=== PATIENT | female | born 1945 | race Caucasian/White ===

== ENCOUNTER → 2018-05-03 11:26 | Outpatient (CLI) | payer MEDICARE, OTHER, SELFPAY ==
--- NOTE | 2018-05-03 | DI.MG.S_ITS ---
BILATERAL DIGITAL SCREENING MAMMOGRAM 3D/2D WITH CAD: 05/03/2018 CLINICAL: Routine screening. Family history of breast cancer. Comparison is made to exams dated: 03/10/2017 mammogram, 10/23/2015 mammogram, and 10/21/2014 mammogram - [facility]. The tissue of both breasts is heterogeneously dense. This may lower the sensitivity of mammography. Current study was also evaluated with a Computer Aided Detection (CAD) system. There is an asymmetry in the left breast posterior depth lower region seen on the mediolateral oblique view only. There is possible architectural distortion associated with the asymmetry. No other significant masses, calcifications, or other findings are seen in either breast. IMPRESSION: INCOMPLETE: NEEDS ADDITIONAL IMAGING EVALUATION The asymmetry in the left breast is indeterminate. Additional views with possible ultrasound are recommended. This exam was interpreted at Station ID: [id number]. NOTE: For mammograms, a report in lay terms will be sent to the patient. Approximately 15% of breast malignancies will not be visualized mammographically. In the management of a palpable breast mass, a negative mammogram must not discourage biopsy of a clinically suspicious lesion. Electronically Signed By: Rony Myers M.D. ecl/:05/05/2018 02:08:00 letter sent: Additional Imaging Needed ACR BI-RADS Category 0: Incomplete 3340F
[2018-05-03 18:06] LABS: Creatinine Urine Random 103.3 mg/dL; Protein (Total) Urine Random 9 mg/dL (0-12); Protein Creatinine Ratio Urine 0.08 GRAM/24H
== END ==
PROVIDERS: Student in an Organized Health Care Education/Training Program
DX: Z12.31 Encounter for screening mammogram for malignant neoplasm of breast (principal); Z80.3 Family history of malignant neoplasm of breast; R80.9 Proteinuria, unspecified
CPT/HCPCS: 77063; 77067; 82570; 84156

== ENCOUNTER → 2018-05-17 08:07 | Outpatient (CLI) | payer MEDICARE, OTHER, SELFPAY ==
--- NOTE | 2018-05-17 | DI.US.S_ITS ---
ULTRASOUND OF LEFT BREAST AND AXILLA: 05/17/2018 CLINICAL: Patient returns today to evaluate a density in the left breast. Comparison is made to exams dated: 05/17/2018 mammogram, 05/03/2018 mammogram, 03/10/2017 mammogram, and 10/23/2015 mammogram - [facility]. Real-time and Doppler ultrasound of the left breast and axilla were performed. Richardson scale images of the real-time examination were reviewed. There is 1.2 cm x 1.1 cm x 0.6 cm oval mass with a circumscribed margin in the left breast at 9 o'clock 7 cm from the nipple. This oval mass is hypoechoic. This correlates with mammography findings. Color flow imaging demonstrates that there is increased vascularity. Targeted ultrasound of the axilla demonstrates a prominent 3.8 cm lymph node with preserved fatty hilum and no cortical thickening. IMPRESSION: SUSPICIOUS OF MALIGNANCY 1) The 1.2 cm x 1.1 cm x 0.6 cm oval mass in the left breast is at an intermediate suspicion for malignancy. An ultrasound guided biopsy is recommended. 2) No left axillary lymphadenopathy. These results and recommendations were discussed with the patient at the time of the exam by the [facility] Radiologist Dr. Shane Rayo in person. This exam was interpreted at Station ID: [id number]. Electronically Signed By: Rony Myers M.D. ecl/:05/17/2018 10:58:18 letter sent: Biopsy Required Ultrasound BI-RADS: 4b Suspicious abnormality - intermediate suspicion of malignancy
--- NOTE | 2018-05-17 | DI.MG.S_ITS ---
UNILATERAL LEFT DIGITAL DIAGNOSTIC MAMMOGRAM 3D/2D WITH ADDITIONAL VIEWS: 05/17/2018 CLINICAL: Additional evaluation requested from prior study. Comparison is made to exams dated: 05/03/2018 mammogram, 03/10/2017 mammogram, and 10/23/2015 mammogram - [facility]. The tissue of left breast is heterogeneously dense. This may lower the sensitivity of mammography. There is 0.8 cm oval mass in the left breast lower inner aspect posterior depth. This correlates with the prior exam. There is architectural distortion associated with the mass. There are left breast vascular calcifications. There is a circular mole marker overlying the left breast. No other significant masses or calcifications are seen in the breast. IMPRESSION: INCOMPLETE: NEEDS ADDITIONAL IMAGING EVALUATION The 0.8 cm oval mass in the left breast is indeterminate. An ultrasound is recommended. This exam was interpreted at Station ID: [id number]. NOTE: For mammograms, a report in lay terms will be sent to the patient. Approximately 15% of breast malignancies will not be visualized mammographically. In the management of a palpable breast mass, a negative mammogram must not discourage biopsy of a clinically suspicious lesion. Electronically Signed By: Rony Myers M.D. ecl/:05/17/2018 09:10:36 letter sent: Additional Imaging Needed ACR BI-RADS Category 0: Incomplete [id number]
== END ==
DX: R92.8 Other abnormal and inconclusive findings on diagnostic imaging of breast (principal); N63.24 Unspecified lump in the left breast, lower inner quadrant
CPT/HCPCS: 76642; 77065; G0279

== ENCOUNTER → 2018-06-08 15:51 | Outpatient (CLI) | payer MEDICARE, OTHER, SELFPAY ==
[2018-06-08 17:18] LABS: Blood Urea Nitrogen 16 mg/dL (7-17); Calcium 10.1 mg/dL (8.4-10.2); Carbon Dioxide 27 mmol/L (22-32); Chloride 102 mmol/L (98-107); Estimated Glomerular Filt Rate > 60.0 mL/min (>60); Glucose 89 mg/dL (80-110); HEMOLYSIS < 15 (0-50); Potassium 4.5 mmol/L (3.4-5.1); Sodium 141 mmol/L (137-145)
[2018-06-08 17:48] LABS: Sodium Urine Random < 5 mmol/L (30-90)
[2018-06-08 17:49] LABS: Hematocrit 34.4 % (36-46); Mean Corpuscular HGB Conc 31.9 % (30-36); Mean Corpuscular Hemoglobin 19.6 PG (26-34); Mean Corpuscular Volume 61.3 fL (80-100); Platelet Count 230 X10^3/uL (150-400); Red Blood Cell Count 5.61 X10^6/uL (4.0-5.2); Red Cell Distribution Width 16.3 % (11.6-14.8); White Blood Cell Count 6.8 X10^3/uL (4.5-11.0)
[2018-06-08 18:17] LABS: Anisocytosis 1+; Hypochromasia 1+; Microcytosis 1+; Ovalocytes 1+; Polychromasia 2+
[2018-06-08 18:18] LABS: Basophilic Stippling 1+
[2018-06-08 18:23] LABS: Appearance Urine UA CLEAR; Bilirubin Urine UA NEGATIVE (NEGATIVE); Color Urine UA YELLOW; Glucose Urine UA NEGATIVE (Normal); Ketones Urine UA NEGATIVE (NEGATIVE); Leukocyte Esterase Urine UA 2+ (NEGATIVE); Nitrite Urine UA NEGATIVE (Negative); Occult Blood Urine UA NEGATIVE (Negative); Protein Urine UA NEGATIVE (Negative); Specific Gravity Urine UA <=1.005 (1.000-1.035); Urobilinogen Urine UA 0.2 E.U./dL (0.2)
[2018-06-08 18:33] LABS: Bacteria Urine Few (2-10); RBC Urine 0-1/HPF (0-5/HPF); Squamous Epithelial Cell Urine 1-5 /HPF; WBC Urine 1-5/HPF (0-5/HPF)
[2018-06-08 18:34] LABS: Culture Indicated Urine Specimen Cultured
[2018-06-10 14:44] LABS: Parathyroid Hormone Int 49 pg/mL (14-64)
[2018-06-12 09:08] LABS: Aldosterone/Renin Activity Rat 9.9 Ratio (0.9-28.9); Plama Renin, LC/MS/MS 5.27 ng/mL/h (0.25-5.82)
[2018-06-12 13:00] LABS: Metanephrine, Free < 25 pg/mL (< OR = 57); Normetanephrine, Free 51 pg/mL (< OR = 148)
== END ==
PROVIDERS: Visit Provider Student in an Organized Health Care Education/Training Program
DX: I10 Essential (primary) hypertension (principal); D63.1 Anemia in chronic kidney disease; N25.81 Secondary hyperparathyroidism of renal origin; N30.00 Acute cystitis without hematuria; E87.1 Hypo-osmolality and hyponatremia
CPT/HCPCS: 36415; 80048; 81001; 82088; 83835; 83970; 84244; 84300; 85027; 87086

== ENCOUNTER → 2018-06-09 08:06 | Outpatient (CLI) | payer MEDICARE, OTHER, SELFPAY ==
--- NOTE | 2018-06-09 | PATH_ITS ---
[facility] Accession Number: [id number] . 01 Material submitted: . LEFT BREAST . 01 Clinical history: . MASS 8:30 O'CLOCK 7CM FROM NIPPLE . 02 Diagnosis: Breast Mass at 8:30 o'clock, 7 cm from Nipple, Left Breast, Needle Core Biopsy: Invasive carcinoma with the following features: Histologic type: E-cadherin study pending; results will be reported as an addendum. Toyin grade: 5 of 9. Greatest linear extent: 0.7 cm. Ductal carcinoma in situ: Present, solid and cribriform patterns, nuclear grade 2 of 3, no necrosis identified. Microcalcifications: Not identified. Lymphovascular invasion: Not identified. Prognostic markers: HER2 and hormone receptor studies will be performed and the results reported as an addendum. MRV/06/12/2018 . 02 Comment: This case was reviewed by my colleague, Dr. Raul Gordon, who concurs with this interpretation. . 02 Electronically signed: . Taya Ramirez MD, Pathologist NPI- [id number] . 01 Gross description: . Received one formalin-filled container labeled with the patient's name and designated left breast mass 8:30 o'clock 7 cm from nipple. The specimen is received with a plastic filter in the container, sample loose in container, and consists of multiple light yellow portions of soft tissue which aggregate to 2.0 x 1.0 x 0.3 cm. The specimen is filtered, wrapped, and entirely submitted in one cassette. Collection date: 06/09/2018. Collection time per container: 9:20 AM. Total fixation time: 12 hours, up to 24. ([id number]) /FRR . 02 Pathologist provided ICD-10: C50.912 . 02 CPT . 843541, O95735, 408579, 607905, 473001 Performed at: 01 [facility] [address] [id number] MD Bharat Louise MD Phone: [phone] Performed at: 02 [facility] [address] [address] [place], [place] [id number] MD Enrico Gill MD Phone: [phone]
--- NOTE | 2018-06-09 | DI.MG.S_ITS ---
UNILATERAL LEFT DIGITAL DIAGNOSTIC MAMMOGRAM POST-NEEDLE BIOPSY: 06/09/2018 CLINICAL: Post clip placement. Comparison is made to exams dated: 05/17/2018 mammogram, 05/03/2018 mammogram, and 03/10/2017 mammogram - [facility]. The tissue of left breast is heterogeneously dense. This may lower the sensitivity of mammography. There is a mass in the left breast at 8 o'clock anterior depth. IMPRESSION: POST PROCEDURE MAMMOGRAM FOR MARKER PLACEMENT The mass in the left breast needs additional evaluation. This exam was interpreted at Station ID: [id number]. NOTE: For mammograms, a report in lay terms will be sent to the patient. Approximately 15% of breast malignancies will not be visualized mammographically. In the management of a palpable breast mass, a negative mammogram must not discourage biopsy of a clinically suspicious lesion. Electronically Signed By: Marcos barrett/kiah:06/09/2018 17:13:40 ACR BI-RADS Category Post-procedure mammogram for marker placement
--- NOTE | 2018-06-09 | DI.US.S_ITS ---
ULTRASOUND GUIDED BIOPSY LEFT BREAST USING VACUUM DEVICE WITH MARKING DEVICE INSERTED AND POST MAMMOGRAPHIC IMAGIN06/09/2018 CLINICAL: Left breast mass. PATIENT CONSENT: Risks (minor bleeding, infection, vasovagal reaction and repeat procedure), benefits and alternatives were explained to the patient and written informed consent was obtained. Correlation is made to exams dated: 05/17/2018 ultrasound, 05/17/2018 mammogram, and 05/03/2018 mammogram - [facility]. An ultrasound guided biopsy using real-time ultrasound was performed for the concerning 1.2 cm x 1.1 cm x 0.6 cm circumscribed oval solid mass located in the left breast at 8 o'clock anterior depth. This was described on the previous ultrasound report. The skin was prepped in the usual manner. Local anesthetic was administered to the access site. A skin misty was made in the breast. The abnormality was approached from the lateral aspect. A 13 gauge biopsy needle was placed adjacent to the abnormality under ultrasound guidance. Once the needle was documented to be in the correct location, seven specimens were obtained using the Mammotome biopsy system. The patient received additional local anesthetic during the procedure. A clip was inserted into the biopsy cavity. A skin adhesive was applied to the access site. Post procedure mammographic imaging demonstrates the location device at the targeted area. The specimens were sent to the laboratory for pathological analysis. IMPRESSION: ULTRASOUND GUIDED BIOPSY MALIGNANT Ultrasound guided biopsy of the 1.2 cm x 1.1 cm x 0.6 cm solid mass in the left breast at 8 o'clock anterior depth was successful. Pathology indicates malignant invasive ductal carcinoma (ID). Pathology results are concordant with imaging findings. This exam was interpreted at Station ID: [id number]. Marcos Thapa M.D. [facility]/:06/13/2018 16:43:09
== END ==
DX: R92.8 Other abnormal and inconclusive findings on diagnostic imaging of breast (principal)
CPT/HCPCS: 19083; 77065; 88305; 88342; 88360

== ENCOUNTER → 2018-08-07 13:39 | Outpatient (CLI) | payer MEDICARE, OTHER, SELFPAY | PROVIDERS: Visit Provider Internal Medicine Endocrinology, Diabetes & Metabolism | DX: M85.832 Other specified disorders of bone density and structure, left forearm (principal); Z78.0 Asymptomatic menopausal state; E07.9 Disorder of thyroid, unspecified; E21.3 Hyperparathyroidism, unspecified; Z85.3 Personal history of malignant neoplasm of breast; Z90.722 Acquired absence of ovaries, bilateral | CPT/HCPCS: 77080; 77081 ==

== ENCOUNTER 2019-03-03 11:15 | Emergency (ER) | payer MEDICARE, OTHER, SELFPAY ==
[2019-03-03 11:23] VITALS: BP 232/116; PULSE 120; RESP 18; TEMP 36.2; O2SAT 100; BMI 21.4
--- NOTE | 2019-03-03 11:30 | DI.RAD.S_ITS ---
PROCEDURE: XR CHEST 1V INDICATIONS: chest pain TECHNIQUE: One view of the chest was acquired. COMPARISON: [facility], , CHEST 2 VIEW, 07/05/2012, 11:46. FINDINGS: Surgical changes and devices: Left breast clips and left axillary clips are seen. Lungs and pleura: Lungs are clear. No pleural effusions or pneumothorax. Mediastinum: The cardiac contours are within normal limits. The aorta demonstrates calcification and tortuosity. Bones and chest wall: No suspicious bony lesions. Age-appropriate bony degenerative changes are seen. Mild dextroconvex scoliotic curvature is seen. Overlying soft tissues appear unremarkable. IMPRESSION: No acute cardiopulmonary process is seen. Postoperative and degenerative changes are seen. Dictated by: Vincent Aguayo M.D. on 03/03/2019 at 10:49 Approved by: Vincent Aguayo M.D. on 03/03/2019 at 10:50
--- NOTE | 2019-03-03 11:39 | ED.CHESTPAIN ---
HPI - Chest Pain General Chief Complaint: Chest Pain Stated Complaint: NAUSEA HIGH BP CHEST PAIN Time Seen by Provider: 03/03/19 11:39 Source: patient and family () Mode of arrival: ambulatory Limitations: no limitations History of Present Illness HPI narrative: 73-year-old female comes emergency department with complaint of chest pain that started this morning at about 9:00 a.m. patient states it has been present since there. It feels like a heaviness on her chest she states she does not really feel short of breath. Patient also complains of some nausea and vomiting last night. She has continued to feel nauseated this morning. She denies any real abdominal pain, no diarrhea or constipation no urinary issues. Patient has not had any swelling in her lower extremities. She states she has felt very fatigued. Patient describes her chest pain as heaviness sort of throughout her chest she can't localize it. She has not had any fevers or chills. No cold cough or congestion. Patient has a history of hypertension, breast cancer with a lumpectomy in June. She states that she did received chemo and radiation which she has completed. Patient states radiation was completed only 2 weeks ago. She has a sister who had cardiac issues. She denies other surgeries. She is accompanied by her . Related Data Home Medications Medication Instructions Recorded Confirmed [ALLER-LNEORA] #0 11/17/12 [ASTAXANTHIN] 1 tab PO Q DAY #0 11/17/12 [CALCIUM COMBINATIONS] #0 11/17/12 [KRILL OIL] 1,000 mg PO #0 11/17/12 [UBIQUINOL] #0 11/17/12 [VITAMIN D3] 4,000 mg PO Q DAY #0 11/17/12 cyclosporine [Restasis] 0.05 OP BID #0 11/17/12 mometasone [Nasonex] 50 mcg BID #0 11/17/12 spironolactone 50 mg PO TID #0 11/17/12 [t-sadejhl-a-thyron S] #0 01/20/13 CETIRIZINE HCL (ZYRTEC) 10 mg PO QDAY #30 tab 03/15/16 [probiotic] #0 03/15/16 [stool softner] #0 03/15/16 clonidine [Cyebznle-DUC-0] 0.2 mg TD QWEEK #0 patch 03/15/16 ketoconazole 1 wilner TOPICAL #15 gm 03/15/16 Previous Rx's Medication Instructions Recorded aspirin 325 mg PO QDAY #30 03/16/16 carvedilol [Coreg] 6.25 mg PO BID #60 tab 03/16/16 Allergies Allergy/AdvReac Type Severity Reaction Status Date / Time RONAN Inhibitors Allergy Severe Unverified 11/30/17 12:01 [RONAN INHIBITORS] ARB-Angiotensin Receptor Allergy Severe Unverified 11/30/17 12:01 Antagonist [ARB-ANGIOTENSIN RECEPTOR ANTAGONIST] codeine [CODEINE] Allergy Mild VOMITING Unverified 11/30/17 12:01 oxycodone [OXYCODONE] Allergy Mild VOMITING Unverified 11/30/17 12:01 Beta-Blockers Allergy Unknown nightmares Unverified 11/30/17 12:01 (Beta-Adrenergic Bloc [BETA-BLOCKERS (BETA-ADRENERGIC BLOC] Review of Systems Review of Systems ROS Unobtainable: All systems reviewed & are unremarkable except as noted in HPI and below PFSH Medical History (Updated 03/03/19 @ 11:54 by Zulma Singh DO) Breast cancer (Chronic) Surgical History (Updated 12/20/17 @ 05:36 by Torrie Samaniego) Status post hysterectomy (08/02/12) Status post parathyroidectomy Status post surgery (06/09/12) Social History Smoking Status: Never smoker Social History Smoking Status: Never smoker Exam Narrative Exam Narrative: GENERAL: Alert and oriented x three, thin female, appears anxious. HEENT: Head normocephalic, atraumatic, EOMI, pupils reactive, face symmetric, moist mucous membranes NECK: Supple, full range of motion CARDIOVASCULAR: Regular rate and rhythm without murmurs, rubs or gallops. None reproducible chest pain. Patient has a small area of ecchymosis on her right anterior chest. RESPIRATORY: Breath sounds equal bilaterally, no wheezes rales or rhonchi. No tachypnea, no accessory muscle use. ABDOMEN: Soft, nontender. Normoactive bowel sounds all 4 quadrants. No guarding or rebound, rigidity, no mass EXTREMITIES: Normal range of motion. No swelling in lower extremities. Equal in circumference bilaterally. 2+ pulses bilateral lower extremities. Neurovascularly intact NEUROLOGICAL: Cranial nerves II through XII grossly intact. Moving all extremities SKIN: Warm, dry, no petechiae, no rashes or lesions. Initial Vital Signs Initial Vital Signs: Vital Signs Temperature 97.2 F L 03/03/19 11:23 Pulse Rate 120 H 03/03/19 11:23 Respiratory Rate 18 03/03/19 11:23 Blood Pressure 232/116 H 03/03/19 11:23 Pulse Oximetry 100 03/03/19 11:23 Scores HEART Score Heart Score history: Highly Suspicious Heart Score EKG: Significant ST depression Heart Score Age: > or = 65 years old Heart Score risk factors: 1-2 risk factors Heart Score troponin: > 3 times normal limit Heart Score Total: 9 Course Orders Ordered: ED Orders 03/03/19 11:30 XR chest 1V Stat 03/03/19 11:31 EKG-12 Lead Stat 03/03/19 11:36 Complete Blood Count AUTO DIFF Stat Comprehensive Metabolic Panel Stat Lipase Stat Partial Thromboplastin Time Stat Prothrombin Time INR Stat Troponin & CK Cardiac Panel Stat Discontinued Medications Aspirin (Aspirin Chew) 324 mg PO NOW ONE Stop: 03/03/19 11:41 Last Admin: 03/03/19 11:44 Dose: 324 mg Heparin Sodium (Porcine) (Heparin) 4,000 unit IV NOW ONE Stop: 03/03/19 11:41 Last Admin: 03/03/19 11:43 Dose: 4,000 unit Sodium Chloride (Normal Saline 0.9%) 1,000 mls @ 150 mls/hr IV CONT SAHARA Last Infusion: 03/03/19 17:32 Dose: 0 mls/hr Infusion: 03/03/19 12:13 Dose: 1,000 mls/hr Admin: 03/03/19 11:55 Dose: 1,000 mls/hr Nitroglycerin (Nitrostat) 0.4 mg SL [id number] PRN PRN Reason: Chest Pain Last Admin: 03/03/19 11:52 Dose: 0.4 mg Admin: 03/03/19 11:45 Dose: 0.4 mg Ondansetron HCl (Zofran) 4 mg IV NOW ONE Stop: 03/03/19 11:54 Last Admin: 03/03/19 11:45 Dose: 4 mg Vital Signs - 8 hr 03/03/19 11:23 03/03/19 11:45 03/03/19 11:49 Temperature 97.2 F L Pulse Rate 120 H 125 H 128 H Respiratory Rate 18 22 Blood Pressure 232/116 H 201/118 H Blood Pressure [Right Arm] 215/123 H Pulse Oximetry 100 96 03/03/19 11:50 03/03/19 11:52 Temperature Pulse Rate 131 H 131 H Respiratory Rate 18 Blood Pressure 202/110 H Blood Pressure [Right Arm] 202/110 H Pulse Oximetry 96 MDM - Chest Pain Lab Data Attestation: I reviewed the patient's lab results. Result diagrams: 03/03/19 11:36 03/03/19 11:36 Lab Results 03/03/19 03/03/19 03/03/19 Range/Units 11:36 11:36 11:36 WBC 23.3 H (4.5-11.0) X10^3/uL RBC 6.93 H (4.0-5.2) X10^6/uL Hgb 13.7 (12.0-16.0) g/dL Hct 41.8 (36-46) % MCV 60.3 L (80-100) fL MCH 19.8 L (26-34) PG MCHC 32.8 (30-36) % RDW 17.1 H (11.6-14.8) % Plt Count 276 (150-400) X10^3/uL Neut % (Auto) 90.0 H (50-75) % Lymph % (Auto) 2.5 L (25-40) % [place] % (Auto) 6.6 (3-14) % Eos % (Auto) 0.0 L (2-4) % Baso % (Auto) 0.9 (0-2) % Neut # (Auto) 72310 H (5153-8221) /uL Lymph # (Auto) 600 L (2720-0560) /uL [place] # (Auto) 1500 H (0-900) /uL Eos # (Auto) 0 (0-450) /uL Baso # (Auto) 200 H (0-100) /uL RBC Morphology See below Microcytosis 2+ H Target Cells 1+ H PT 11.3 (10.1-12.7) SECONDS INR 1.0 (0.9-1.3) APTT 32 (26.4-36.2) SECONDS Sodium 140 (137-145) mmol/L Potassium 3.7 (3.4-5.1) mmol/L Chloride 98 (98-107) mmol/L Carbon Dioxide 21 L (22-32) mmol/L BUN 20 H (7-17) mg/dL Creatinine 0.80 (0.52-1.04) mg/dL Estimated GFR > 60.0 (>60) mL/min BUN/Creatinine Ratio 25.0 H (6-22) Glucose 310 H (80-110) mg/dL Calcium 10.7 H (8.4-10.2) mg/dL Total Bilirubin 1.3 (0.2-1.3) mg/dL AST 90 H (14-36) IU/L ALT 65 H (9-52) IU/L Alkaline Phosphatase 89 (38-126) U/L Total Creatine Kinase 126 (30-135) U/L CK-MB (CK-2) 6.32 H (<2.37) ng/mL CK-MB (CK-2) Rel Index 5.0 (1.5-5.0) % Troponin I 1.960 H* (0.01-0.034) ng/mL Total Protein 8.3 H (6.3-8.2) g/dL Albumin 5.0 (3.5-5.0) g/dL Globulin 3.3 (1.7-4.1) g/dL Albumin/Globulin Ratio 1.5 (1.0-2.8) Lipase 228 (23-300) U/L Imaging Data Chest x-ray: Attestation: I personally reviewed and interpreted this imaging study as follows: My impression: No acute process noted. Radiologist's impression: [address] [address] XRay Report Signed Patient: Teresa Pederson [facility]#: [id number] : 3Acct:[id number] Age/Sex: 73 / FDate of Service: 03/03/19 Loc: ED Accession Number: [id number] Procedure: XR chest 1V Ordering Provider: Zulma Singh D.O. PROCEDURE: XR CHEST 1V INDICATIONS: chest pain TECHNIQUE: One view of the chest was acquired. COMPARISON: [facility], CHEST 2 VIEW, 07/05/2012, 11:46. FINDINGS: Surgical changes and devices: Left breast clips and left axillary clips are seen. Lungs and pleura: Lungs are clear. No pleural effusions or pneumothorax. Mediastinum: The cardiac contours are within normal limits. The aorta demonstrates calcification and tortuosity. Bones and chest wall: No suspicious bony lesions. Age-appropriate bony degenerative changes are seen. Mild dextroconvex scoliotic curvature is seen. Overlying soft tissues appear unremarkable. IMPRESSION: No acute cardiopulmonary process is seen. Postoperative and degenerative changes are seen. Dictated by: Vincent Aguayo M.D. on 03/03/2019 at 10:49 Approved by: Vincent Aguayo M.D. on 03/03/2019 at 10:50 ECG Data Attestation: I personally reviewed and interpreted this ECG as follows: Prior ECG tracings: available for review Interpretation: Patient has sinus tachycardia with ST elevation in V2 through V4. Also appears to have elevation in 1 and aVL. Patient has depression in 2 3 AVF. Patient has a prior EKG available which shows a sinus rhythm with no ST elevation or depression appreciated. She does have Q-waves in 2 3 and AVF on that EKG from 03/15/2016. [facility] Narrative Medical decision making narrative: Patient's EKG findings are concerning for ST elevated IN, she has hypertension tachycardic. Patient is given fluids, aspirin 324 mg. She was nauseated and had 1 episode of emesis prior to aspirin and was given Zofran. Patient was given heparin 4000 unit bolus. Fluids. She was also given nitro sublingual. Patient does have potential for other causes such as PE, hypertensive emergency or other potential causes but at this time my suspicion for ST elevated IN is higher. I spoke with Dr. Villa at [facility] who accepts for transfer. EKGs have been faxed, blood work is pending and will be forwarded when available. Chest x-ray does not show any acute changes. Discharge Plan Departure Patient Disposition: [facility] Clinical Impression: ST elevation (STEMI) myocardial infarction Discharge Date/Time: 03/03/19 12:00 Interventions: ED Discharge Assessment Last Done: 03/03/19 12:02 Prescriptions: No Action mometasone [Nasonex] 50 MCG/PUFF spray,non-aerosol 50 mcg BID Qty: 0 RF: 0 [ALLER-LENORA] Qty: 0 RF: 0 spironolactone 50 MG tablet 50 mg PO TID Qty: 0 RF: 0 cyclosporine [Restasis] 1 EACH dropperette 0.05 OP BID Qty: 0 RF: 0 [ASTAXANTHIN] 1 tab PO Q DAY Qty: 0 RF: 0 [CALCIUM COMBINATIONS] Qty: 0 RF: 0 [KRILL OIL] 1,000 mg PO Qty: 0 RF: 0 [UBIQUINOL] Qty: 0 RF: 0 [VITAMIN D3] 4,000 mg PO Q DAY Qty: 0 RF: 0 [r-vbsiblm-k-thyron S] Qty: 0 RF: 0 clonidine [Ejhyjcdq-FYG-7] 0.2 MG/24 HR patch weekly 0.2 mg TD QWEEK Qty: 0 RF: 0 ketoconazole 2 % cream 1 wilner Topical Qty: 15 RF: 0 [probiotic] Qty: 0 RF: 0 CETIRIZINE HCL (ZYRTEC) 10 mg PO QDAY Qty: 30 RF: 0 [stool softner] Qty: 0 RF: 0 aspirin 325 MG tablet,delayed release (DR/EC) 325 mg PO QDAY Qty: 30 RF: 0 carvedilol [Coreg] 6.25 MG tablet 6.25 mg PO BID Qty: 60 RF: 0 Referrals: Estela Fletcher PA-C [Primary Care Provider] -
[2019-03-03] MEDS: HEPARIN 5,000 UNIT/ML VIAL 4000 UNIT IV (11:43)
[2019-03-03] MEDS: ASPIRIN 81 MG TAB 324 MG PO (11:44)
[2019-03-03 11:45] VITALS: BP 201/118; PULSE 125
[2019-03-03] MEDS: NITROGLYCERIN 0.4 MG SL TAB SL ×2 (11:45→11:52)
[2019-03-03] MEDS: ONDANSETRON 4 MG/2 ML INJ IV (11:45)
[2019-03-03 11:49] VITALS: BP 215/123; PULSE 128; RESP 22; O2SAT 96
[2019-03-03 11:50] VITALS: BP 202/110; PULSE 131; RESP 18; O2SAT 96
[2019-03-03 11:52] VITALS: BP 202/110; PULSE 131
[2019-03-03] MEDS: SODIUM CHLORIDE 0.9% 1,000 ML 1000 ML IV (11:55)
--- NOTE | 2019-03-03 11:55 | ED_ITS ---
HPI - Chest Pain General Chief Complaint: Chest Pain Stated Complaint: NAUSEA HIGH BP CHEST PAIN Time Seen by Provider: 03/03/19 11:39 Source: patient and family () Mode of arrival: ambulatory Limitations: no limitations History of Present Illness HPI narrative: 73-year-old female comes emergency department with complaint of chest pain that started this morning at about 9:00 a.m. patient states it has been present since there. It feels like a heaviness on her chest she states she does not really feel short of breath. Patient also complains of some nausea and vomiting last night. She has continued to feel nauseated this morning. She denies any real abdominal pain, no diarrhea or constipation no urinary issues. Patient has not had any swelling in her lower extremities. She states she has felt very fatigued. Patient describes her chest pain as heaviness sort of throughout her chest she can't localize it. She has not had any fevers or chills. No cold cough or congestion. Patient has a history of hypertension, breast cancer with a lumpectomy in June. She states that she did received chemo and radiation which she has completed. Patient states radiation was completed only 2 weeks ago. She has a sister who had cardiac issues. She denies other surgeries. She is accompanied by her . Related Data Home Medications Medication Instructions Recorded Confirmed [ALLER-LENORA] #0 11/17/12 [ASTAXANTHIN] 1 tab PO Q DAY #0 11/17/12 [CALCIUM COMBINATIONS] #0 11/17/12 [KRILL OIL] 1,000 mg PO #0 11/17/12 [UBIQUINOL] #0 11/17/12 [VITAMIN D3] 4,000 mg PO Q DAY #0 11/17/12 cyclosporine [Restasis] 0.05 OP BID #0 11/17/12 mometasone [Nasonex] 50 mcg BID #0 11/17/12 spironolactone 50 mg PO TID #0 11/17/12 [s-bkgcbdo-q-thyron S] #0 01/20/13 CETIRIZINE HCL (ZYRTEC) 10 mg PO QDAY #30 tab 03/15/16 [probiotic] #0 03/15/16 [stool softner] #0 03/15/16 clonidine [Xifuewoi-NID-9] 0.2 mg TD QWEEK #0 patch 03/15/16 ketoconazole 1 wilner TOPICAL #15 gm 03/15/16 Previous Rx's Medication Instructions Recorded aspirin 325 mg PO QDAY #30 03/16/16 carvedilol [Coreg] 6.25 mg PO BID #60 tab 03/16/16 Allergies Allergy/AdvReac Type Severity Reaction Status Date / Time RONAN Inhibitors Allergy Severe Unverified 11/30/17 12:01 [RONAN INHIBITORS] ARB-Angiotensin Receptor Allergy Severe Unverified 11/30/17 12:01 Antagonist [ARB-ANGIOTENSIN RECEPTOR ANTAGONIST] codeine [CODEINE] Allergy Mild VOMITING Unverified 11/30/17 12:01 oxycodone [OXYCODONE] Allergy Mild VOMITING Unverified 11/30/17 12:01 Beta-Blockers Allergy Unknown nightmares Unverified 11/30/17 12:01 (Beta-Adrenergic Bloc [BETA-BLOCKERS (BETA-ADRENERGIC BLOC] Review of Systems Review of Systems ROS Unobtainable: All systems reviewed & are unremarkable except as noted in HPI and below PFSH Medical History (Updated 03/03/19 @ 11:54 by Zulma Singh DO) Breast cancer (Chronic) Surgical History (Updated 12/20/17 @ 05:36 by Torrie Samaniego) Status post hysterectomy (08/02/12) Status post parathyroidectomy Status post surgery (06/09/12) Social History Smoking Status: Never smoker Social History Smoking Status: Never smoker Exam Narrative Exam Narrative: GENERAL: Alert and oriented x three, thin female, appears anxious. HEENT: Head normocephalic, atraumatic, EOMI, pupils reactive, face symmetric, m oist mucous membranes NECK: Supple, full range of motion CARDIOVASCULAR: Regular rate and rhythm without murmurs, rubs or gallops. None reproducible chest pain. Patient has a small area of ecchymosis on her right anterior chest. RESPIRATORY: Breath sounds equal bilaterally, no wheezes rales or rhonchi. No tachypnea, no accessory muscle use. ABDOMEN: Soft, nontender. Normoactive bowel sounds all 4 quadrants. No guarding or rebound, rigidity, no mass EXTREMITIES: Normal range of motion. No swelling in lower extremities. Equal in circumference bilaterally. 2+ pulses bilateral lower extremities. Neurovascularly intact NEUROLOGICAL: Cranial nerves II through XII grossly intact. Moving all extremities SKIN: Warm, dry, no petechiae, no rashes or lesions. Initial Vital Signs Initial Vital Signs: Vital Signs Temperature 97.2 F L 03/03/19 11:23 Pulse Rate 120 H 03/03/19 11:23 Respiratory Rate 18 03/03/19 11:23 Blood Pressure 232/116 H 03/03/19 11:23 Pulse Oximetry 100 03/03/19 11:23 Scores HEART Score Heart Score history: Highly Suspicious Heart Score EKG: Significant ST depression Heart Score Age: > or = 65 years old Heart Score risk factors: 1-2 risk factors Heart Score troponin: > 3 times normal limit Heart Score Total: 9 Course Orders Ordered: ED Orders 03/03/19 11:30 XR chest 1V Stat 03/03/19 11:31 EKG-12 Lead Stat 03/03/19 11:36 Complete Blood Count AUTO DIFF Stat Comprehensive Metabolic Panel Stat Lipase Stat Partial Thromboplastin Time Stat Prothrombin Time INR Stat Troponin & CK Cardiac Panel Stat Discontinued Medications Aspirin (Aspirin Chew) 324 mg PO NOW ONE Stop: 03/03/19 11:41 Last Admin: 03/03/19 11:44 Dose: 324 mg Heparin Sodium (Porcine) (Heparin) 4,000 unit IV NOW ONE Stop: 03/03/19 11:41 Last Admin: 03/03/19 11:43 Dose: 4,000 unit Sodium Chloride (Normal Saline 0.9%) 1,000 mls @ 150 mls/hr IV CONT SAHARA Last Infusion: 03/03/19 17:32 Dose: 0 mls/hr Infusion: 03/03/19 12:13 Dose: 1,000 mls/hr Admin: 03/03/19 11:55 Dose: 1,000 mls/hr Nitroglycerin (Nitrostat) 0.4 mg SL [id number] PRN PRN Reason: Chest Pain Last Admin: 03/03/19 11:52 Dose: 0.4 mg Admin: 03/03/19 11:45 Dose: 0.4 mg Ondansetron HCl (Zofran) 4 mg IV NOW ONE Stop: 03/03/19 11:54 Last Admin: 03/03/19 11:45 Dose: 4 mg Vital Signs - 8 hr 03/03/19 11:23 03/03/19 11:45 03/03/19 11:49 Temperature 97.2 F L Pulse Rate 120 H 125 H 128 H Respiratory Rate 18 22 Blood Pressure 232/116 H 201/118 H Blood Pressure [Right Arm] 215/123 H Pulse Oximetry 100 96 03/03/19 11:50 03/03/19 11:52 Temperature Pulse Rate 131 H 131 H Respiratory Rate 18 Blood Pressure 202/110 H Blood Pressure [Right Arm] 202/110 H Pulse Oximetry 96 MDM - Chest Pain Lab Data Attestation: I reviewed the patient's lab results. Result diagrams: 03/03/19 11:36 03/03/19 11:36 Lab Results 03/03/19 03/03/19 03/03/19 Range/Units 11:36 11:36 11:36 WBC 23.3 H (4.5-11.0) X10^3/uL RBC 6.93 H (4.0-5.2) X10^6/uL Hgb 13.7 (12.0-16.0) g/dL Hct 41.8 (36-46) % MCV 60.3 L (80-100) fL MCH 19.8 L (26-34) PG MCHC 32.8 (30-36) % RDW 17.1 H (11.6-14.8) % Plt Count 276 (150-400) X10^3/uL Neut % (Auto) 90.0 H (50-75) % Lymph % (Auto) 2.5 L (25-40) % Christian % (Auto) 6.6 (3-14) % Eos % (Auto) 0.0 L (2-4) % Baso % (Auto) 0.9 (0-2) % Neut # (Auto) 41877 H (8351-0664) /uL Lymph # (Auto) 600 L (4400-1135) /uL Christian # (Auto) 1500 H (0-900) /uL Eos # (Auto) 0 (0-450) /uL Baso # (Auto) 200 H (0-100) /uL RBC Morphology See below Microcytosis 2+ H Target Cells 1+ H PT 11.3 (10.1-12.7) SECONDS INR 1.0 (0.9-1.3) APTT 32 (26.4-36.2) SECONDS Sodium 140 (137-145) mmol/L Potassium 3.7 (3.4-5.1) mmol/L Chloride 98 (98-107) mmol/L Carbon Dioxide 21 L (22-32) mmol/L BUN 20 H (7-17) mg/dL Creatinine 0.80 (0.52-1.04) mg/dL Estimated GFR > 60.0 (>60) mL/min BUN/Creatinine Ratio 25.0 H (6-22) Glucose 310 H (80-110) mg/dL Calcium 10.7 H (8.4-10.2) mg/dL Total Bilirubin 1.3 (0.2-1.3) mg/dL AST 90 H (14-36) IU/L ALT 65 H (9-52) IU/L Alkaline Phosphatase 89 (38-126) U/L Total Creatine Kinase 126 (30-135) U/L CK-MB (CK-2) 6.32 H (<2.37) ng/mL CK-MB (CK-2) Rel Index 5.0 (1.5-5.0) % Troponin I 1.960 H* (0.01-0.034) ng/mL Total Protein 8.3 H (6.3-8.2) g/dL Albumin 5.0 (3.5-5.0) g/dL Globulin 3.3 (1.7-4.1) g/dL Albumin/Globulin Ratio 1.5 (1.0-2.8) Lipase 228 (23-300) U/L Imaging Data Chest x-ray: Attestation: I personally reviewed and interpreted this imaging study as follows: My impression: No acute process noted. Radiologist's impression: [address] [address] XRay Report Signed Patient: Teresa Pederson [facility]#: [id number] : 3Acct:[id number] Age/Sex: 73 / FDate of Service: 03/03/19 Loc: ED Accession Number: [id number] Procedure: XR chest 1V Ordering Provider: Zulma Singh D.O. PROCEDURE: XR CHEST 1V INDICATIONS: chest pain TECHNIQUE: One view of the chest was acquired. COMPARISON: [facility], , CHEST 2 VIEW, 07/05/2012, 11:46. FINDINGS: Surgical changes and devices: Left breast clips and left axillary clips are seen. Lungs and pleura: Lungs are clear. No pleural effusions or pneumothorax. Mediastinum: The cardiac contours are within normal limits. The aorta d emonstrates calcification and tortuosity. Bones and chest wall: No suspicious bony lesions. Age-appropriate bony degenerative changes are seen. Mild dextroconvex scoliotic curvature is seen. Overlying soft tissues appear unremarkable. IMPRESSION: No acute cardiopulmonary process is seen. Postoperative and degenerative changes are seen. Dictated by: Vincent Aguayo M.D. on 03/03/2019 at 10:49 Approved by: Vincent Aguayo M.D. on 03/03/2019 at 10:50 ECG Data Attestation: I personally reviewed and interpreted this ECG as follows: Prior ECG tracings: available for review Interpretation: Patient has sinus tachycardia with ST elevation in V2 through V4. Also appears to have elevation in 1 and aVL. Patient has depression in 2 3 AVF. Patient has a prior EKG available which shows a sinus rhythm with no ST elevation or depression appreciated. She does have Q-waves in 2 3 and AVF on that EKG from 03/15/2016. MDM Narrative Medical decision making narrative: Patient's EKG findings are concerning for ST elevated [place], she has hypertension tachycardic. Patient is given fluids, aspirin 324 mg. She was nauseated and had 1 episode of emesis prior to aspirin and was given Zofran. Patient was given heparin 4000 unit bolus. Fluids. She was also given nitro sublingual. Patient does have potential for other causes such as PE, hypertensive emergency or other potential causes but at this time my suspicion for ST elevated [place] is higher. I spoke with Dr. Villa at [facility] who accepts for transfer. EKGs have been faxed, blood work is pending and will be forwarded when available. Chest x-ray does not show any acute changes. Discharge Plan Departure Patient Disposition: [facility] Clinical Impression: ST elevation (STEMI) myocardial infarction Discharge Date/Time: 03/03/19 12:00 Interventions: ED Discharge Assessment Last Done: 03/03/19 12:02 Prescriptions: No Action mometasone [Nasonex] 50 MCG/PUFF spray,non-aerosol 50 mcg BID Qty: 0 RF: 0 [ALLER-LENORA] Qty: 0 RF: 0 spironolactone 50 MG tablet 50 mg PO TID Qty: 0 RF: 0 cyclosporine [Restasis] 1 EACH dropperette 0.05 OP BID Qty: 0 RF: 0 [ASTAXANTHIN] 1 tab PO Q DAY Qty: 0 RF: 0 [CALCIUM COMBINATIONS] Qty: 0 RF: 0 [KRILL OIL] 1,000 mg PO Qty: 0 RF: 0 [UBIQUINOL] Qty: 0 RF: 0 [VITAMIN D3] 4,000 mg PO Q DAY Qty: 0 RF: 0 [g-pcvtvhk-t-thyron S] Qty: 0 RF: 0 clonidine [Satjphdj-URU-7] 0.2 MG/24 HR patch weekly 0.2 mg TD QWEEK Qty: 0 RF: 0 ketoconazole 2 % cream 1 wilner Topical Qty: 15 RF: 0 [probiotic] Qty: 0 RF: 0 CETIRIZINE HCL (ZYRTEC) 10 mg PO QDAY Qty: 30 RF: 0 [stool softner] Qty: 0 RF: 0 aspirin 325 MG tablet,delayed release (DR/EC) 325 mg PO QDAY Qty: 30 RF: 0 carvedilol [Coreg] 6.25 MG tablet 6.25 mg PO BID Qty: 60 RF: 0 Referrals: Estela Fletcher PA-C [Primary Care Provider] -
[2019-03-03 12:00] LABS: Add Manual Diff / Slide Review NO; Basophils Absolute Auto 200 /uL (0-100); Basophils Percent Auto 0.9 % (0-2); Eosinophils Absolute Auto 0 /uL (0-450); Hematocrit 41.8 % (36-46); Hemoglobin 13.7 g/dL (12.0-16.0); Lymphocytes Absolute Auto 600 /uL (1100-4500); Lymphocytes Percent Auto 2.5 % (25-40); Mean Corpuscular HGB Conc 32.8 % (30-36); Mean Corpuscular Hemoglobin 19.8 PG (26-34); Mean Corpuscular Volume 60.3 fL (80-100); Monocytes Absolute Auto 1500 /uL (0-900); Monocytes Percent Auto 6.6 % (3-14); Neutrophils Absolute Auto 21000 /uL (1500-7000); Platelet Count 276 X10^3/uL (150-400); Red Blood Cell Count 6.93 X10^6/uL (4.0-5.2); Red Cell Distribution Width 17.1 % (11.6-14.8); White Blood Cell Count 23.3 X10^3/uL (4.5-11.0)
[2019-03-03 12:05] LABS: PTT Partial Thromboplastin Tim 32 SECONDS (26.4-36.2); Prothrombin Time 11.3 SECONDS (10.1-12.7)
[2019-03-03 12:06] LABS: Alanine Aminotransferase 65 IU/L (9-52); Albumin Globulin Ratio 1.5 (1.0-2.8); Alkaline Phosphatase 89 U/L (38-126); Aspartate Aminotransferase 90 IU/L (14-36); Bilirubin Total 1.3 mg/dL (0.2-1.3); Blood Urea Nitrogen 20 mg/dL (7-17); Calcium 10.7 mg/dL (8.4-10.2); Carbon Dioxide 21 mmol/L (22-32); Chloride 98 mmol/L (98-107); Creatine Kinase 126 U/L (30-135); Estimated Glomerular Filt Rate > 60.0 mL/min (>60); Globulin 3.3 g/dL (1.7-4.1); Glucose 310 mg/dL (80-110); HEMOLYSIS < 15 (0-50); Lipase 228 U/L (23-300); Potassium 3.7 mmol/L (3.4-5.1); Sodium 140 mmol/L (137-145); Total Protein 8.3 g/dL (6.3-8.2)
--- NOTE | 2019-03-03 12:07 | PC.NURSE ---
arrived, skin pale, dry,warm, +nausea and +emesis. reports, epigastric chest preassure 5, also with heaviness, non radiating pain. no other associated sxs hx of breast cancer, lymph nodectomy, no bp,iv left arm. medicated for comfort
[2019-03-03 12:22] LABS: Creatine Kinase MB 6.32 ng/mL (<2.37)
[2019-03-03 12:36] LABS: Microcytosis 2+; Target Cells 1+
== END 2019-03-03 12:00 | disposition short-term general hospital (02) ==
PROVIDERS: Emergency Provider Emergency Medicine
DX: I21.3 ST elevation (STEMI) myocardial infarction of unspecified site (principal)
CPT/HCPCS: 36591; 71045; 80053; 82550; 82553; 83690; 84484; 85025; 85610; 85730; 93005; 96374; 96375; 99283; 99285; 99291; J1644; J2405

== ENCOUNTER → 2019-04-12 13:05 | Outpatient (CLI) | payer MEDICARE, OTHER, SELFPAY | PROVIDERS: Referring Provider Internal Medicine Endocrinology, Diabetes & Metabolism; Visit Provider Internal Medicine Hematology & Oncology | DX: Z79.811 Long term (current) use of aromatase inhibitors (principal) | CPT/HCPCS: 77080 ==

== ENCOUNTER → 2019-04-18 11:54 | Outpatient (CLI) | payer MEDICARE, OTHER, SELFPAY ==
[2019-04-18 13:35] LABS: BUN Creatinine Ratio 26.7 (6-22); Blood Urea Nitrogen 24 mg/dL (7-17); Calcium 10.4 mg/dL (8.4-10.2); Carbon Dioxide 30 mmol/L (22-32); Chloride 90 mmol/L (98-107); Estimated Glomerular Filt Rate > 60.0 mL/min (>60); Glucose 102 mg/dL (80-110); HEMOLYSIS < 15 (0-50); Potassium 3.7 mmol/L (3.4-5.1); Sodium 134 mmol/L (137-145)
== END ==
PROVIDERS: Visit Provider Internal Medicine
DX: I16.0 Hypertensive urgency (principal)
CPT/HCPCS: 36415; 80048

== ENCOUNTER → 2019-06-30 13:24 | Outpatient (CLI) | payer MEDICARE, OTHER, SELFPAY ==
--- NOTE | 2019-06-30 13:27 | DI.RAD.S_ITS ---
PROCEDURE: XR LUMBAR SPINE 2-3V INDICATIONS: 74 y/o F midline lumbar spine pain s/p direct trauma, R/O Fx TECHNIQUE: 3 views of the lumbar spine were acquired. COMPARISON: [facility], CR, XR CHEST 1V, 03/03/2019, 11:44. FINDINGS: Bones: 5 lau-tls-wispkbl vertebrae are present. No vertebral body compression fractures. No suspicious bony lesions. There is moderate levoconvex scoliosis. There is 50% loss of height anteriorly at the L1 level. No definite, acute features are detected. No plain film findings of posterior displacement fracture fragments can be seen. Mild disc space narrowing is seen at the L5-S1 level. The disc heights otherwise appear well-preserved. Lower lumbar spine facet arthropathy is seen. Soft tissues: There is a moderate amount of stool seen within colon. No suspicious soft tissue calcifications. Atherosclerotic calcification is noted. IMPRESSION: There is a 50% anterior wedge deformity at L1, without binu, acute features by plain film. Please correlate with focal tenderness. In this patient with this given history, please consider a dedicated lumbar CT for further evaluation. Focal L5-S1 degenerative change. Moderate levoconvex scoliosis. There is a moderate amount of stool seen within the colon. Please correlate with an underlying history of constipation. Dictated by: Vincent Aguayo M.D. on 06/30/2019 at 13:00 Approved by: Vincent Aguayo M.D. on 06/30/2019 at 13:03
== END ==
PROVIDERS: Visit Provider Physician Assistant
DX: M54.5 Low back pain (principal); M47.817 Spondylosis without myelopathy or radiculopathy, lumbosacral region; M41.86 Other forms of scoliosis, lumbar region; R30.0 Dysuria
CPT/HCPCS: 72100; 87077; 87086; 87186

== ENCOUNTER → 2019-07-13 12:32 | Outpatient (CLI) | payer MEDICARE, OTHER, SELFPAY ==
--- NOTE | 2019-07-13 | DI.MG.S_ITS ---
BILATERAL DIGITAL SCREENING MAMMOGRAM 3D/2D WITH CAD POST LUMPECTOMY: 07/13/2019 CLINICAL: Routine screening. Personal history of left breast cancer. Family history of breast cancer. Comparison is made to exams dated: 05/03/2018 mammogram, 10/23/2015 mammogram, and 03/10/2017 mammogram - [facility]. The tissue of both breasts is heterogeneously dense. This may lower the sensitivity of mammography. Current study was also evaluated with a Computer Aided Detection (CAD) system. There are benign post operative findings in the left breast. No significant masses, calcifications, or other findings are seen in either breast. There has been no significant interval change. IMPRESSION: There is no mammographic evidence of malignancy. A 1 year screening mammogram is recommended. This exam was interpreted at Station ID: [id number]. NOTE: For mammograms, a report in lay terms will be sent to the patient. Approximately 15% of breast malignancies will not be visualized mammographically. In the management of a palpable breast mass, a negative mammogram must not discourage biopsy of a clinically suspicious lesion. Electronically Signed By: Mei bay/kiah:07/13/2019 15:46:50 copy to: NASRIN GRACE, ph: [phone], fax: [phone] copy to: AMY MCKEON letter sent: Normal Exam ACR BI-RADS Category 2: Benign Finding(s) 3342E
--- NOTE | 2019-07-13 | DI.CT.S_ITS ---
PROCEDURE: CT LUMBAR SPINE WO CON INDICATIONS: Wedge compression fracture SCREENING TECHNIQUE: Noncontrast 3 mm thick sections acquired from the T12 level to the sacrum. Sagittal and coronal reformats were constructed. For radiation dose reduction, the following was used: automated exposure control. COMPARISON: [facility], CR, XR LUMBAR SPINE 2-3V, 06/30/2019, 13:25. FINDINGS: Image quality: Excellent. Bones: No suspicious lytic or blastic bony lesions. No pars defects. There is a subacute appearing fracture at the L1 level, with 50-60% loss of height anteriorly. There is mild posterior displacement of fracture fragments of 4-5 mm. No additional fractures are seen. Mild levoconvex scoliotic curvature is seen. No focal AP alignment abnormality is seen. T12-L1: The disc height is relatively well-preserved. Calcification can be seen within the disc level itself. Mild to moderate disc bulge is seen. Dfrn-ik-kchquxlk bilateral neural foraminal narrowing is seen. Posterior to the L1 vertebral body, there is mild to moderate central canal narrowing, caused by posterior displacement of fracture fragments. L1-L2: No significant abnormality is seen. L2-L3: Level within normal limits. L3-L4: Mild loss of disc height is seen on the right side. Mild to moderate disc bulge is seen. There is moderate right-sided and mild to moderate left-sided neural foraminal narrowing seen. Mild to moderate central canal narrowing is seen. L4-L5: The disc height is well-preserved. Moderate disc bulge is seen, which is eccentric to the right. Calcification can be seen on the posterior aspect of the disc, as on series 6 image 39. There is moderate right-sided and mild to moderate left-sided neural foraminal narrowing seen. There is moderate right-sided and no significant left-sided neural foraminal narrowing seen. Fqic-pp-avjuebel central canal narrowing is seen at this level. L5-S1: Moderate loss of disc height is seen. Moderate disc bulge is seen, with a central disc protrusion seen. Mild facet hypertrophy is seen, left worse than right. No significant neural foraminal narrowing is seen. Fnao-ta-dtwsycqg central canal narrowing is seen. Soft tissues: No retroperitoneal masses or hematomas. Visualized aorta is normal in caliber. Atherosclerotic calcification is noted. Nonobstructing right-sided kidney stones are seen, with the largest seen on series 3 image 37 measuring 3 mm. IMPRESSION: Subacute L1 compression deformity, with 50% to 60% loss of height anteriorly. The degree of loss of vertebral body height is not significantly changed compared to the prior examination. Posterior displacement of fracture fragments can be seen, with measuring 4-5 mm, with mild to moderate central canal narrowing posterior to L1. Incidental note is made of: Atherosclerotic calcification Nonobstructing right-sided kidney stones Dictated by: Vincent Aguayo M.D. on 07/13/2019 at 14:48 Approved by: Vincent Aguayo M.D. on 07/13/2019 at 14:57
== END ==
DX: Z12.31 Encounter for screening mammogram for malignant neoplasm of breast (principal); Z85.3 Personal history of malignant neoplasm of breast; Z80.3 Family history of malignant neoplasm of breast; M48.56XA Collapsed vertebra, not elsewhere classified, lumbar region, initial encounter for fracture; N20.0 Calculus of kidney; I70.0 Atherosclerosis of aorta
CPT/HCPCS: 72131; 77063; 77067

== ENCOUNTER → 2019-08-03 12:14 | Outpatient (CLI) | payer MEDICARE, OTHER, SELFPAY ==
[2019-08-03 12:41] LABS: Add Manual Diff / Slide Review NO; Basophils Absolute Auto 0 /uL (0-100); Basophils Percent Auto 0.6 % (0-2); Eosinophils Absolute Auto 0 /uL (0-450); Eosinophils Percent Auto 0.9 % (2-4); Hematocrit 33.7 % (36-46); Hemoglobin 11.1 g/dL (12.0-16.0); Lymphocytes Absolute Auto 600 /uL (1100-4500); Lymphocytes Percent Auto 14.6 % (25-40); Mean Corpuscular HGB Conc 32.8 % (30-36); Mean Corpuscular Hemoglobin 20.7 PG (26-34); Monocytes Absolute Auto 400 /uL (0-900); Monocytes Percent Auto 8.9 % (3-14); Neutrophils Absolute Auto 3300 /uL (1500-7000); Platelet Count 227 X10^3/uL (150-400); Red Blood Cell Count 5.36 X10^6/uL (4.0-5.2); Red Cell Distribution Width 18.1 % (11.6-14.8); White Blood Cell Count 4.4 X10^3/uL (4.5-11.0)
[2019-08-03 13:08] LABS: Hypochromasia 2+; Microcytosis 3+; Ovalocytes 1+
== END ==
PROVIDERS: Visit Provider Internal Medicine Hematology & Oncology
DX: D64.81 Anemia due to antineoplastic chemotherapy (principal); T45.1X5A Adverse effect of antineoplastic and immunosuppressive drugs, initial encounter
CPT/HCPCS: 36415; 85025

== ENCOUNTER → 2020-01-18 09:09 | Outpatient (CLI) | payer MEDICARE, OTHER, SELFPAY ==
--- NOTE | 2020-01-18 | DI.US.S_ITS ---
LIMITED ULTRASOUND OF LEFT BREAST: 01/18/2020 CLINICAL: Left breast cancer with new lump. Comparison is made to exams dated: 01/18/2020 mammogram, 07/13/2019 mammogram, 06/09/2018 ultrasound biopsy, and 05/17/2018 [facility]. Color flow and real-time ultrasound of the left breast 9 o'clock, and retroareolar regions were performed. Richardson scale images of the real-time examination were reviewed. There is a 2.3 cm x 1.9 cm x 1.4 cm oval fluid collection in the left breast at 9 o'clock anterior depth 5 cm from the nipple. This oval fluid collection is hypoechoic with a well-defined boundary and internal echoes. This correlates as palpated. Color flow imaging demonstrates that there is no vascularity present. Adjacent linear scar is seen. IMPRESSION: PROBABLY BENIGN The 2.3 cm oval fluid collection in the left breast most likely is a hematoma or a seroma and is probably benign. The patient reports that the abnormality is slowly enlarging. A follow-up mammogram and an ultrasound in 6 months is recommended to demonstrate stability. Exam results were conveyed to the patient. This exam was interpreted at Station ID: [id number]. Electronically Signed By: González Neff M.D. slc/:01/18/2020 11:28:05 letter sent: Followup Recommended Ultrasound BI-RADS: 3 Probably benign
--- NOTE | 2020-01-18 | DI.MG.S_ITS ---
BILATERAL DIGITAL DIAGNOSTIC MAMMOGRAM 3D/2D POST LUMPECTOMY: 01/18/2020 CLINICAL: Left breast cancer with new lump. Comparison is made to exams dated: 07/13/2019 mammogram, 05/03/2018 mammogram, 03/10/2017 mammogram, 06/09/2018 ultrasound biopsy, 05/17/2018 ultrasound, and 05/17/2018 mammogram - [facility]. The tissue of both breasts is heterogeneously dense. This may lower the sensitivity of mammography. Post-operative findings in the lower inner left breast and axilla are stable in appearance. Benign vascular calcifications. No mass or significant calcifications in the region of the left breast palpable abnormality in the anterior lower inner left breast. No significant masses, calcifications, or other findings are seen in either breast. IMPRESSION: INCOMPLETE: NEEDS ADDITIONAL IMAGING EVALUATION No significant masses, calcifications, or other findings are seen in either breast. Stable left breast post-operative findings. Targeted ultrasound of the left breast palpable abnormality is recommended and will immediately follow. This exam was interpreted at Station ID: [id number]. NOTE: For mammograms, a report in lay terms will be sent to the patient. Approximately 15% of breast malignancies will not be visualized mammographically. In the management of a palpable breast mass, a negative mammogram must not discourage biopsy of a clinically suspicious lesion. Electronically Signed By: González Neff M.D. slc/:01/18/2020 11:10:36 ACR BI-RADS Category 0: Incomplete [id number]
== END ==
PROVIDERS: PCP Nurse Practitioner; Referring Provider Internal Medicine; Visit Provider Internal Medicine
DX: R92.8 Other abnormal and inconclusive findings on diagnostic imaging of breast (principal); N63.25 Unspecified lump in the left breast, overlapping quadrants; C50.912 Malignant neoplasm of unspecified site of left female breast
CPT/HCPCS: 76642; 77066; G0279

== ENCOUNTER → 2020-03-13 09:54 | Outpatient (CLI) | payer MEDICARE, OTHER, SELFPAY ==
[2020-03-13 11:45] LABS: Cholesterol 159 mg/dL (140-199); HDL Cholesterol 51 mg/dL (40-60); LDL Cholesterol Calculated 65 mg/dL (<100); Triglycerides 213 mg/dL (35-150); VLDL Cholesterol Calculated 43 mg/dL (2-30)
== END ==
PROVIDERS: PCP Nurse Practitioner; Referring Provider Nurse Practitioner; Visit Provider Nurse Practitioner
DX: E78.5 Hyperlipidemia, unspecified (principal)
CPT/HCPCS: 36415; 80061

== ENCOUNTER → 2020-07-14 12:39 | Outpatient (CLI) | payer MEDICARE, OTHER, SELFPAY ==
--- NOTE | 2020-07-14 | DI.US.S_ITS ---
ULTRASOUND OF LEFT BREAST AND AXILLA: 07/14/2020 CLINICAL: 6 month follow-up of palpable lump. Comparison is made to exams dated: 01/18/2020 ultrasound, 07/14/2020 mammogram, 01/18/2020 mammogram, 07/13/2019 mammogram, 06/09/2018 ultrasound biopsy, and 06/09/2018 mammogram - [facility]. Color flow and real-time ultrasound of the left breast axilla were performed. Richardson scale images of the real-time examination were reviewed. Redemonstration of previously described 2 cm x 1.9 cm x 1.4 cm irregular fluid collection versus complex fluid collection or mass in the left breast at 8 o'clock anterior depth 4 cm from the nipple. This irregular fluid collection is hypoechoic with a well-defined boundary, internal echoes, and posterior acoustic enhancement. This abnormality is not significantly changed and correlates as palpated, to the reported pain, and with area of clinical concern. Color flow imaging demonstrates that there is no vascularity present. This correlates with site of prior partial mastectomy. There is slight decrease in the cystic component of this collection or mass. No significant abnormalities were seen sonographically in the left axilla. IMPRESSION: PROBABLY BENIGN The 2 cm x 1.9 cm x 1.4 cm irregular fluid collection in the left breast most likely is a hematoma /seroma versus other postoperative fluid collection; however, complex cystic lesion not completely excluded at this time. This finding is probably benign. A follow-up left mammogram and an ultrasound in 6 months is recommended to demonstrate stability. The patient will also be due for screening mammogram of the contralateral breast at that time. Findings and recommendations were conveyed to the patient during today's evaluation. This exam was interpreted at Station ID: [id number]. Electronically Signed By: Jett Araujo M.D. aty/:07/14/2020 15:27:46 letter sent: Followup Recommended Ultrasound BI-RADS: 3 Probably benign
--- NOTE | 2020-07-14 | DI.MG.S_ITS ---
UNILATERAL LEFT DIGITAL DIAGNOSTIC MAMMOGRAM 3D/2D SHORT-TERM FOLLOW-UP: 07/14/2020 CLINICAL: Short term follow up of presumed post operative fluid collection in the anterior third depth of the lower, inner left breast at site of prior partial mastectomy. Patient reports intermittent pain, subjectively getting smaller and not much change in firmness of the mass. Comparison is made to exams dated: 01/18/2020 mammogram, 07/13/2019 mammogram, 06/09/2018 mammogram, and 05/17/2018 mammogram - [facility]. The tissue of left breast is heterogeneously dense. This may lower the sensitivity of mammography. There is an irregular equal density mass with an obscured margin in the left breast at 8 o'clock middle depth. This is not significantly changed and correlates as palpated, to the area of reported pain, to post-operative changes, and with area of clinical concern. There are surgical clips and a post-surgical scar associated with the mass. No other significant masses or calcifications are seen in the breast. IMPRESSION: INCOMPLETE: NEEDS ADDITIONAL IMAGING EVALUATION The irregular equal density mass in the left breast is consistent with a hematoma versus postoperative fluid collection at site of previous surgery and is indeterminate. An ultrasound is recommended for further evaluation and is scheduled to immediately follow this study. This exam was interpreted at Station ID: [id number]. NOTE: For mammograms, a report in lay terms will be sent to the patient. Approximately 15% of breast malignancies will not be visualized mammographically. In the management of a palpable breast mass, a negative mammogram must not discourage biopsy of a clinically suspicious lesion. Electronically Signed By: Jett Araujo M.D. aty/:07/14/2020 15:22:18 ACR BI-RADS Category 0: Incomplete [id number]
== END ==
PROVIDERS: PCP Nurse Practitioner; Referring Provider Internal Medicine; Visit Provider Internal Medicine
DX: Z08 Encounter for follow-up examination after completed treatment for malignant neoplasm (principal); R92.8 Other abnormal and inconclusive findings on diagnostic imaging of breast
CPT/HCPCS: 76642; 77065; G0279

== ENCOUNTER → 2020-10-09 10:34 | Outpatient (CLI) | payer MEDICARE, OTHER, SELFPAY ==
[2020-10-09 12:04] LABS: Free T3, Triiodothyronine Free 2.91 pg/mL (2.77-5.27)
[2020-10-09 12:18] LABS: TSH w/ Reflex to FT4 0.27 uIU/mL (0.47-4.68)
[2020-10-09 13:16] LABS: Free T4, Direct Thyroxine 1.01 ng/dL (0.78-2.19)
[2020-10-15 19:56] LABS: Vitamin D 25 Hydroxy (D3) 45.5 ng/mL (30.0-100.0)
== END ==
PROVIDERS: PCP Nurse Practitioner; Referring Provider Internal Medicine Endocrinology, Diabetes & Metabolism; Visit Provider Internal Medicine Endocrinology, Diabetes & Metabolism
DX: E03.9 Hypothyroidism, unspecified (principal)
CPT/HCPCS: 36415; 82306; 84439; 84443; 84481

== ENCOUNTER → 2021-01-12 09:18 | Outpatient (CLI) | payer MEDICARE, OTHER, SELFPAY ==
--- NOTE | 2021-01-12 09:20 | DI.MG.S_ITS ---
BILATERAL DIGITAL DIAGNOSTIC MAMMOGRAM 3D/2D SHORT-TERM FOLLOW-UP POST LUMPECTOMY: 01/12/2021 CLINICAL: Short term follow up of the left breast, due for bilateral imaging. Comparison is made to exams dated: 07/14/2020 mammogram, 01/18/2020 mammogram, 07/13/2019 mammogram, and 07/14/2020 [facility]. The tissue of both breasts is heterogeneously dense. This may lower the sensitivity of mammography. There is an irregular mass with an obscured margin in the left breast at 8 o'clock middle depth. This is not significantly changed and correlates as palpated, to the area of reported pain, to post-operative changes, and with ultrasound findings. There are surgical clips and a post-surgical scar associated with the mass. No other significant masses, calcifications, or other findings are seen in either breast. IMPRESSION: INCOMPLETE: NEEDS ADDITIONAL IMAGING EVALUATION The irregular mass in the left breast is indeterminate. Targeted ultrasound is recommended for further evaluation, which will be performed immediately following this exam. This exam was interpreted at Station ID: [id number]. NOTE: For mammograms, a report in lay terms will be sent to the patient. Approximately 15% of breast malignancies will not be visualized mammographically. In the management of a palpable breast mass, a negative mammogram must not discourage biopsy of a clinically suspicious lesion. Electronically Signed By: Ez cooper/kiah:01/12/2021 10:18:40 ACR BI-RADS Category 0: Incomplete [id number]
--- NOTE | 2021-01-12 09:21 | DI.US.S_ITS ---
LIMITED ULTRASOUND OF LEFT BREAST: 01/12/2021 CLINICAL: 6 month follow-up of seroma. Comparison is made to exams dated: 01/12/2021 mammogram, 07/14/2020 ultrasound, 01/18/2020 ultrasound, 07/13/2019 mammogram, 01/18/2020 mammogram, and 05/17/2018 [facility]. Color flow ultrasound of the left breast was performed. Richardson scale images of the real-time examination were reviewed. There is a 2.1 cm x 1.6 cm x 1.6 cm irregular fluid collection in the left breast at 8 o'clock anterior depth 4 cm from the nipple. This irregular fluid collection is hypoechoic with a well-defined boundary, internal echoes, and posterior acoustic enhancement. This abnormality is not significantly changed and correlates as palpated, to the reported pain, and with area of clinical concern. Color flow imaging demonstrates that there is no vascularity present. IMPRESSION: PROBABLY BENIGN The 2.1 cm x 1.6 cm x 1.6 cm irregular fluid collection in the left breast most likely is a hematoma or a seroma and is probably benign. A follow-up left mammogram and an ultrasound in 6 months is recommended to demonstrate stability. This exam was interpreted at Station ID: [id number]. Electronically Signed By: Ez cooper/kiah:01/12/2021 10:21:12 letter sent: Followup Recommended Ultrasound BI-RADS: 3 Probably benign
== END ==
PROVIDERS: PCP Nurse Practitioner; Referring Provider Internal Medicine; Visit Provider Internal Medicine
DX: R92.8 Other abnormal and inconclusive findings on diagnostic imaging of breast; N64.89 Other specified disorders of breast
CPT/HCPCS: 76642; 77066; G0279

== ENCOUNTER → 2021-01-16 09:29 | Outpatient (CLI) | payer MEDICARE, OTHER, SELFPAY ==
[2021-01-16 10:18] LABS: Calcium 10.3 mg/dL (8.4-10.2); Phosphorous 3.2 mg/dL (2.8-4.1)
[2021-01-16 10:33] LABS: Free T3, Triiodothyronine Free 2.33 pg/mL (2.77-5.27)
[2021-01-16 10:34] LABS: Vitamin D 25 Hydroxy (D3) 87.5 ng/mL (30.0-100.0)
[2021-01-16 11:17] LABS: Free T4, Direct Thyroxine 0.51 ng/dL (0.78-2.19)
[2021-01-17 05:42] LABS: Parathyroid Hormone Int 62 pg/mL (15-65)
== END ==
PROVIDERS: PCP Nurse Practitioner; Referring Provider Internal Medicine Endocrinology, Diabetes & Metabolism; Visit Provider Internal Medicine Endocrinology, Diabetes & Metabolism
DX: E21.3 Hyperparathyroidism, unspecified (principal); E03.9 Hypothyroidism, unspecified
CPT/HCPCS: 36415; 82306; 82310; 83970; 84100; 84439; 84443; 84481

== ENCOUNTER → 2022-01-05 10:41 | Outpatient (CLI) | payer MEDICARE, OTHER, SELFPAY ==
[2022-01-05 12:49] LABS: Free T4, Direct Thyroxine 1.32 ng/dL (0.78-2.19)
[2022-01-05 13:03] LABS: Thyroid Stimulating Hormone 6.74 uIU/mL (0.47-4.68)
[2022-01-08 18:32] LABS: Metanephrine,Plasma 12.1 pg/mL (0.0-88.0)
[2022-01-12 11:45] LABS: Renin Activity 8.938 ng/mL/hr (0.167-5.380)
== END ==
PROVIDERS: PCP Nurse Practitioner; Referring Provider Internal Medicine Endocrinology, Diabetes & Metabolism; Visit Provider Internal Medicine Endocrinology, Diabetes & Metabolism
DX: I10 Essential (primary) hypertension (principal)
CPT/HCPCS: 36415; 82088; 83835; 84244; 84439; 84443; 84481

== ENCOUNTER → 2022-04-22 13:47 | Outpatient (CLI) | payer MEDICARE, OTHER, SELFPAY ==
--- NOTE | 2022-04-22 | DI.RAD.S_ITS ---
PROCEDURE: XR THORACIC SPINE 3V INDICATIONS: back pain TECHNIQUE: 3 views of the thoracic spine were acquired. COMPARISON: None. FINDINGS: Bones: No acute fractures or dislocations. No suspicious bony lesions. Diffuse osteopenia. 12 pairs of ribs are noted, and appear intact where visualized. Moderate multilevel spondylosis of the imaged spine with age-indeterminate, but likely chronic compression fracture deformity of L1. There is S-shaped scoliosis of the thoracolumbar spine. Soft tissues: No paravertebral stripe thickening. Dense atherosclerotic calcifications of the aorta are present. Visualized portions of the lungs are clear. IMPRESSION: 1. Thoracic spine without acute osseous abnormalities. 2. Moderate multilevel spondylosis with age-indeterminate, but likely chronic compression fracture deformity of the L1 vertebral body. 3. S-shaped scoliosis of the thoracolumbar spine. 4. Atherosclerosis. Dictated by: Jett Araujo M.D. on 04/22/2022 at 17:32 Approved by: Jett Araujo M.D. on 04/22/2022 at 17:35
== END ==
PROVIDERS: PCP Nurse Practitioner; Referring Provider Internal Medicine; Visit Provider Internal Medicine
DX: C50.312 Malignant neoplasm of lower-inner quadrant of left female breast (principal); Z17.0 Estrogen receptor positive status [ER+]; M54.9 Dorsalgia, unspecified; M47.814 Spondylosis without myelopathy or radiculopathy, thoracic region; M41.84 Other forms of scoliosis, thoracic region; I70.90 Unspecified atherosclerosis
CPT/HCPCS: 72072

== ENCOUNTER → 2022-11-12 10:20 | Outpatient (CLI) | payer MEDICARE, OTHER, SELFPAY ==
--- NOTE | 2022-11-12 | DI.MG.S_ITS ---
BILATERAL DIGITAL DIAGNOSTIC MAMMOGRAM 3D/2D: 11/12/2022 CLINICAL: Short term follow up of the left breast, due for bilateral imaging. Comparison is made to exams dated: 01/12/2021 ultrasound, 01/12/2021 mammogram, 07/14/2020 ultrasound, 07/14/2020 mammogram, 01/18/2020 mammogram, and 07/13/2019 mammogram - [facility]. Both breasts are heterogeneously dense, which may obscure small masses (category c / 51-75% glandular tissue). There are surgical clips and scar markers in the left breast in the lower inner quadrant and in the left axilla. There also are vascular calcifications in the left breast in the anterior depth that are not significantly changed. No significant masses, calcifications, or other findings are seen in either breast. Mammograms are otherwise stable. IMPRESSION: INCOMPLETE: NEEDS ADDITIONAL IMAGING EVALUATION Stable bilateral mammograms with expected post surgical changes and benign calcifications in the left breast. Left breast ultrasound will be performed following this exam to re-assess a previous ultrasound-only finding of a fluid collection. This exam was interpreted at Station ID: [id number]. NOTE: For mammograms, a report in lay terms will be sent to the patient. Approximately 15% of breast malignancies will not be visualized mammographically. In the management of a palpable breast mass, a negative mammogram must not discourage biopsy of a clinically suspicious lesion. Electronically Signed By: Mei bay/:11/12/2022 11:04:43 ACR BI-RADS Category 0: Incomplete [id number]
--- NOTE | 2022-11-12 | DI.US.S_ITS ---
LIMITED ULTRASOUND OF LEFT BREAST: 11/12/2022 CLINICAL: Late 6 month follow-up post-op seroma/hematoma. Comparison is made to exams dated: 11/12/2022 mammogram, 01/12/2021 ultrasound, 01/12/2021 mammogram, 07/14/2020 ultrasound, 07/14/2020 mammogram, and 01/18/2020 ultrasound - [facility]. Color flow ultrasound of the left breast 8 o'clock region was performed. Richardson scale images of the real-time examination were reviewed. There is a 1.1 cm x 1.7 cm x 1.7 cm irregular hypoechoic area in the left breast at 8 o'clock anterior depth 4 cm from the nipple. This irregular fluid collection is hypoechoic with a well-defined boundary, low level internal echoes.. This abnormality is decreased in size and was not seen on the prior mammogram. Color flow imaging demonstrates that there is no vascularity present. IMPRESSION: BENIGN There is no sonographic evidence of malignancy. The 1.1 cm x 1.7 cm x 1.7 cm ihypoechoic area in the left breast most likely is the lumpectomy cavity or a seroma, has decreased in size, has no mammographic correlate, and is benign. Return to annual mammogram screening schedule is recommended. This exam was interpreted at Station ID: [id number]. Electronically Signed By: Mei bay/:11/12/2022 12:30:40 letter sent: Normal Exam Ultrasound BI-RADS: 2 Benign
== END ==
PROVIDERS: PCP Nurse Practitioner; Referring Provider Internal Medicine; Visit Provider Internal Medicine
DX: C50.312 Malignant neoplasm of lower-inner quadrant of left female breast; M81.0 Age-related osteoporosis without current pathological fracture; Z17.0 Estrogen receptor positive status [ER+]; R92.1 Mammographic calcification found on diagnostic imaging of breast
CPT/HCPCS: 76642; 77066; G0279

== ENCOUNTER → 2023-07-13 11:46 | Outpatient (CLI) | payer MEDICARE, OTHER, SELFPAY ==
[2023-07-13 13:29] LABS: Hematocrit 34.7 % (36-46); Hemoglobin 11.1 g/dL (12.0-16.0); Mean Corpuscular Hemoglobin 18.9 PG (26-34); Mean Corpuscular Volume 59.3 fL (80-100); Platelet Count 215 X10^3/uL (150-400); Red Blood Cell Count 5.85 X10^6/uL (4.0-5.2); Red Cell Distribution Width 17.1 % (11.6-14.8); White Blood Cell Count 5.6 X10^3/uL (4.5-11.0)
[2023-07-13 13:47] LABS: Alanine Aminotransferase 20 IU/L (<35); Albumin 4.3 g/dL (3.5-5.0); Albumin Globulin Ratio 1.6 (1.0-2.8); Alkaline Phosphatase 80 U/L (38-126); Aspartate Aminotransferase 25 IU/L (14-36); Bilirubin Total 0.9 mg/dL (0.2-1.3); Blood Urea Nitrogen 17 mg/dL (7-17); Calcium 10.1 mg/dL (8.4-10.2); Carbon Dioxide 25 mmol/L (22-32); Chloride 102 mmol/L (98-107); Cholesterol 171 mg/dL (140-199); Estimated Glomerular Filt Rate > 60 mL/min (>60); Globulin 2.7 g/dL (1.7-4.1); Glucose 127 mg/dL (80-110); HDL Cholesterol 52 mg/dL (40-60); HEMOLYSIS < 15 (0-50); LDL Cholesterol Calculated 77 mg/dL (<100); Potassium 4.5 mmol/L (3.4-5.1); Sodium 135 mmol/L (137-145); Triglycerides 211 mg/dL (35-150)
[2023-07-13 14:13] LABS: TSH w/ Reflex to FT4 0.26 uIU/mL (0.47-4.68)
[2023-07-13 14:31] LABS: Vitamin B12 712 pg/mL (239-931)
[2023-07-13 14:45] LABS: Free T4, Direct Thyroxine 1.18 ng/dL (0.78-2.19)
== END ==
PROVIDERS: PCP Internal Medicine; Referring Provider Internal Medicine; Visit Provider Internal Medicine
DX: E03.9 Hypothyroidism, unspecified (principal); E78.2 Mixed hyperlipidemia; Z85.3 Personal history of malignant neoplasm of breast; E53.8 Deficiency of other specified B group vitamins
CPT/HCPCS: 36415; 80053; 80061; 82607; 84439; 84443; 85027

== ENCOUNTER → 2023-09-15 17:37 | Outpatient (CLI) | payer MEDICARE, OTHER, SELFPAY ==
[2023-09-15 21:19] LABS: TSH w/ Reflex to FT4 0.47 uIU/mL (0.47-4.68)
== END ==
PROVIDERS: PCP Internal Medicine; Referring Provider Internal Medicine; Visit Provider Internal Medicine
DX: E03.9 Hypothyroidism, unspecified (principal)
CPT/HCPCS: 36415; 84443

== ENCOUNTER 2023-09-21 10:36 | Inpatient (IN) | payer MEDICARE, OTHER, SELFPAY ==
[2023-09-21] VITALS (62 sets, daily range): BP systolic 108–249; BP diastolic 53–116; PULSE 76–107; RESP 14–48; TEMP 36.2–36.4; O2SAT 91–99; BMI 22.1; BMI 21.2
--- NOTE | 2023-09-21 10:45 | DI.RAD.S_ITS ---
PROCEDURE: XR CHEST 1V INDICATIONS: vomiting, htn TECHNIQUE: One view of the chest was acquired. COMPARISON: [facility], CR, XR CHEST 1V, 03/03/2019, 11:44. FINDINGS: Surgical changes and devices: None. Lungs and pleura: Lungs are clear. No pleural effusions or pneumothorax. Mediastinum: Mediastinal contours appear normal. Heart size is normal. Bones and chest wall: No suspicious bony lesions. Overlying soft tissues appear unremarkable. IMPRESSION: No acute cardiopulmonary abnormality is seen. Dictated by: Jose Maria Fernando M.D. on 09/21/2023 at 11:38 Approved by: Jose Maria Fernando M.D. on 09/21/2023 at 11:39
[2023-09-21 10:53] LABS: Hemoglobin 12.9 g/dL (12.0-16.0); Mean Corpuscular HGB Conc 32.1 % (30-36); Mean Corpuscular Volume 59.1 fL (80-100); Platelet Count 279 X10^3/uL (150-400); Red Blood Cell Count 6.77 X10^6/uL (4.0-5.2); Red Cell Distribution Width 17.1 % (11.6-14.8); White Blood Cell Count 23.6 X10^3/uL (4.5-11.0)
[2023-09-21 10:56] LABS: Add Manual Diff / Slide Review YES
[2023-09-21] MEDS: ONDANSETRON 4 MG/2 ML INJ IV (10:57)
[2023-09-21] MEDS: SODIUM CHLORIDE 0.9% 1,000 ML 1000 ML IV (10:58)
[2023-09-21] MEDS: LABETALOL 20 MG/4 ML SYRINGE 5 MG IV (10:58)
[2023-09-21 11:00] LABS: INR 1.1 (0.9-1.3); Prothrombin Time 12.6 SECONDS (9.4-12.5)
--- NOTE | 2023-09-21 11:01 | ED.GENADULT ---
HPI - General Adult General Chief complaint: Hypertension Stated complaint: bp spiking over 200 over night /vomitting Time Seen by Provider: 09/21/23 10:44 Source: patient Mode of arrival: Ambulatory Limitations: no limitations History of Present Illness HPI narrative: 78-year-old female with history of hypertension, prior breast cancer with lumpectomy and chemo and radiation who presents with complaint of headache that is started last night along with nausea vomiting and feeling fuzzy today. Patient has received a letter in the mail that is said Medicare would no longer cover her Catapres, she was switched to minoxidil on Tuesday. Last dose of Catapres was Tuesday evening. First dose of minoxidil was Tuesday morning. Patient started having nausea and vomiting last night Tuesday evening. She had a headache last night she denies now but states she feels fuzzy. Syncope. No chest pain, no shortness of breath. No abdominal back or flank pain, she has had nausea and vomiting. Has been states she has been drinking Coke has looked similar to that. No black or blood they have noted. She has been a little constipated but did have a bowel movement today. No dysuria, urgency or frequency. Patient has not been able to keep down her other home blood pressure medications. Patient was taking Catapres 0.2 mg twice daily this was changed to minoxidil 1 tablet by mouth daily at 2.5 mg. She was also on labetalol 100 mg 1 tablet twice daily and spironolactone 50 mg 1 tablet twice daily. Patient blood pressure was elevated at home. They have been checking it and has been regularly for the past day. She has multiple drug allergies restricting medication options for her blood pressure. and patient both state that she throws up very easily. No tobacco, alcohol or recreational drugs. Her primary care is Dr. Thomas. Related Data Home Medications Medication Instructions Recorded Confirmed cetirizine 10 mg tablet (Zyrtec) 10 mg PO DAILY PRN Allergy Symptoms 07/13/23 09/21/23 cholecalciferol (vitamin D3) 1 tab PO DAILY 07/13/23 09/21/23 Previous Rx's Medication Instructions Recorded labetalol 100 mg tablet 100 mg PO BID #180 tabs 07/13/23 levothyroxine 88 mcg tablet 88 mcg PO DAILY #90 tabs 07/13/23 liothyronine 5 mcg tablet (Cytomel) 5 mcg PO DAILY #90 tabs 07/13/23 spironolactone 50 mg tablet 50 mg PO BID #180 tabs 07/19/23 amlodipine 5 mg tablet (Norvasc) 5 mg PO DAILY 30 days #30 tabs 09/25/23 chlorthalidone 25 mg tablet 12.5 mg (1/2 x 25 mg) PO DAILY 30 09/25/23 days #15 tabs hydromorphone 2 mg tablet 1 mg (1/2 x 2 mg) PO Q6HR PRN 09/25/23 Pain, Severe (7-10) 7 days #10 tabs minoxidil 2.5 mg tablet 5 mg (2 x 2.5 mg) PO DAILY 30 days 09/25/23 #60 tabs ondansetron HCl 4 mg tablet 4 mg PO Q8H PRN nausea and 09/25/23 vomiting 30 days #30 tabs Allergies Allergy/AdvReac Type Severity Reaction Status Date / Time RONAN Inhibitors Allergy Severe flu like Verified 09/21/23 10:46 [RONAN INHIBITORS] sx, headaches, sore muscles ARB-Angiotensin Receptor Allergy Severe flu like Verified 09/21/23 10:46 Antagonist symptoms [ARB-ANGIOTENSIN RECEPTOR ANTAGONIST] codeine [CODEINE] Allergy Mild VOMITING Verified 09/21/23 10:46 oxycodone [OXYCODONE] Allergy Mild VOMITING Verified 09/21/23 10:46 candesartan Allergy Verified 09/21/23 10:46 diphenhydramine Allergy Verified 09/21/23 10:46 guanfacine Allergy Verified 09/21/23 10:46 amlodipine AdvReac Mild Dizziness Verified 09/21/23 10:46 atenolol AdvReac Mild Dizziness Verified 09/21/23 10:46 diltiazem AdvReac Mild Dizziness Verified 09/21/23 10:46 fosinopril AdvReac Mild Dizziness Verified 09/21/23 10:46 lisinopril AdvReac Mild Dizziness Verified 09/21/23 10:46 metoprolol AdvReac Mild Dizziness Verified 09/21/23 10:46 nifedipine AdvReac Mild Dizziness Verified 09/21/23 10:46 propranolol AdvReac Mild Dizziness Verified 09/21/23 10:46 valsartan AdvReac Mild Dizziness Verified 09/21/23 10:46 Review of Systems Review of Systems ROS Unobtainable: All systems reviewed & are unremarkable except as noted in HPI and below Patient History Medical History Mumps Measles Chicken pox Thalassemia Dementia Polyneuropathy following chemotherapy History of breast cancer History of endometrial cancer Acquired hypothyroidism Mixed hyperlipidemia Essential hypertension (~1986) Urinary incontinence without sensory awareness Urge incontinence Pelvic pain in female Lower urinary tract symptoms (LUTS) Postmenopausal atrophic vaginitis Thyroid disease Osteoporosis Hx of migraine headaches Anemia Breast cancer (~2017) Surgical History Anesthesia Status post hysterectomy (08/02/12) Status post parathyroidectomy Status post surgery (06/09/12) Family History Sister Cancer Kidney stones Father Diabetes mellitus Migraines Mother Hypertension Sister Fall History of heart disease Grandfather Stroke Grandmother History of heart disease Grandfather History of heart disease Grandmother History of heart disease Social History marital status: number of children: 3 household members: spouse occupational status: unemployed Smoking Status: Never smoker alcohol intake: current caffeine: Yes Smoking Status: Never smoker alcohol intake frequency: holidays/special occasions only Substance Use Type: does not use Exam Narrative Exam Narrative: GEN: Thin elderly female, alert and oriented x 3, patient appears to be in mild distress. Patient appears tired. HEENT: Atraumatic, pupils are equal round reactive to light, extraocular movements are intact, nares are clear, there is no conjunctival pallor. Throat is clear without any exudates, erythema, tonsillar enlargement or uvular deviation, HEART: Regular rate and rhythm without murmur, clicks, rubs. Pulses are equal in upper and lower extremities LUNGS:Lungs clear to auscultation, no wheezes, rales, crackles, chest moves symmetrically ABD:bowel sounds normal, soft, non-tender, no guarding, rebound, rigidity, no masses noted, no hepatosplenomegaly :No CVA tenderness MSCL: Non-tender, no muscle atrophy, muscles strength 5/5 upper and lower extremities, full range of motion, normal gait NEURO:CN 2-12 intact, sensation normal. SKIN: No rash, erythema or other skin changes. Initial Vital Signs Initial Vital Signs: Vital Signs Temperature 97.1 F L 09/21/23 10:38 Pulse Rate 106 H 09/21/23 10:38 Respiratory Rate 14 09/21/23 10:38 Blood Pressure 236/116 H 09/21/23 10:38 Pulse Oximetry 99 09/21/23 10:38 Oxygen Delivery Method Room Air 09/21/23 10:38 Course Orders Ordered: Discontinued Medications Acetaminophen (Acetaminophen 325 Mg Tablet) 650 mg PO Q6H PRN PRN Reason: Fever/Mild Pain (1-3) Last Admin: 09/25/23 04:05 Dose: 650 mg Documented By: Admin: 09/24/23 18:39 Dose: 650 mg Documented By: Admin: 09/24/23 12:28 Dose: 650 mg Documented By: Admin: 09/22/23 17:18 Dose: 650 mg Documented By: Admin: 09/22/23 03:16 Dose: 650 mg Documented By: Hydrocodone Bitart/Acetaminophen (Hydrocodone/Acet 5/325 Tablet) 1 tab PO PACUNOW PRN PRN Reason: Mild or moderate pain Amlodipine Besylate (Amlodipine 5 Mg Tablet) 2.5 mg PO DAILY [facility] Last Admin: 09/22/23 09:00 Dose: 2.5 mg Documented By: LIONEL Amlodipine Besylate (Amlodipine 5 Mg Tablet) 5 mg PO DAILY [facility] Last Admin: 09/25/23 08:08 Dose: 5 mg Documented By: Admin: 09/24/23 08:07 Dose: 5 mg Documented By: Admin: 09/23/23 08:59 Dose: 5 mg Documented By: Admin: 09/22/23 19:58 Dose: 5 mg Documented By: TOMI Aspirin (Aspirin Ec 81 Mg Tablet) 81 mg PO DAILY [facility] Last Admin: 09/25/23 08:08 Dose: 81 mg Documented By: Admin: 09/22/23 09:00 Dose: 81 mg Documented By: Admin: 09/21/23 17:45 Dose: 81 mg Documented By: GUSTABO Benzocaine (Benzocaine/Menthol 1 Raisa Pkt) 1 each PO PRN PRN PRN Reason: Sore Throat Bupivacaine HCl (Bupivacaine 0.25% (Pf) Vial) 30 ml INJ NOW ONE Stop: 09/24/23 10:49 Last Admin: 09/24/23 10:49 Dose: 30 ml Documented By: SUSAN Chlorthalidone (Chlorthalidone 25 Mg Tablet) 12.5 mg PO DAILY [facility] Last Admin: 09/25/23 08:07 Dose: 12.5 mg Documented By: Admin: 09/24/23 08:08 Dose: 12.5 mg Documented By: Admin: 09/23/23 08:59 Dose: 12.5 mg Documented By: MM Clonidine HCl (Clonidine 0.1 Mg Tablet) 0.2 mg PO NOW ONE Stop: 09/21/23 12:04 Last Admin: 09/21/23 12:17 Dose: 0.2 mg Documented By: RICO Clonidine HCl (Clonidine 0.1 Mg Tablet) 0.1 mg PO BID [facility] Clonidine HCl (Clonidine 0.1 Mg Tablet) 0.2 mg PO BID [facility] Fentanyl (Fentanyl 100 Mcg/2 Ml Inj) 25 mcg IV NOW ONE Stop: 09/21/23 15:15 Last Admin: 09/22/23 10:52 Dose: Not Given Documented By: LIONEL Fentanyl (Fentanyl 100 Mcg/2 Ml Inj) 0 mcg IV Q5MIN PRN PRN Reason: Pain, Severe (7-10) Heparin Sodium (Porcine) (Heparin 5,000 Unit/Ml Vial) 5,000 unit SUBCUT BID [facility] Heparin Sodium (Porcine) (Heparin 5,000 Unit/Ml Vial) 3,250 unit 60 unit/kg (3250 unit) IV NOW ONE Stop: 09/21/23 17:11 Last Admin: 09/21/23 17:44 Dose: 3,250 unit Documented By: GUSTABO Hydralazine HCl (Hydralazine 20 Mg/Ml Vial) 10 mg IV Q6HR PRN PRN Reason: SBP >180 or DBP >110 Last Admin: 09/22/23 19:16 Dose: 10 mg Documented By: LIONEL Hydralazine HCl (Hydralazine 20 Mg/Ml Vial) 10 mg IV Q6HR PRN PRN Reason: SBP >180 or DBP >110 Last Admin: 09/25/23 01:02 Dose: 10 mg Documented By: Admin: 09/24/23 04:08 Dose: 10 mg Documented By: Admin: 09/23/23 20:26 Dose: 10 mg Documented By: Admin: 09/23/23 08:03 Dose: 10 mg Documented By: MS(2) Hydralazine HCl (Hydralazine 20 Mg/Ml Vial) 5 mg IV NOW PRN PRN Reason: SBP>180 Hydromorphone HCl (Hydromorphone 1 Mg Inj) 0 mg IV Q5MIN PRN PRN Reason: Pain, Mild (1-3) Hydromorphone HCl (Hydromorphone 2 Mg Tablet) 1 mg PO Q6HR PRN PRN Reason: Pain, Severe (7-10) Last Admin: 09/25/23 08:23 Dose: 1 mg Documented By: Admin: 09/24/23 16:10 Dose: 1 mg Documented By: ANIBAL Sodium Chloride (Normal Saline 0.9%) 1,000 mls @ 1,000 mls/hr IV BOLUS ONE Stop: 09/21/23 11:43 Last Infusion: 09/21/23 12:31 Dose: Infused Documented By: Admin: 09/21/23 10:58 Dose: 1,000 mls/hr Documented By: RICO Nicardipine HCl 25 mg/ Sodium (Chloride) 250 mls @ 50 mls/hr IV TITRATE [facility]; Protocol Last Titration: 09/21/23 15:19 Dose: 0 mg/hr, 0 mls/hr Documented By: Admin: 09/21/23 14:45 Dose: 5 mg/hr, 50 mls/hr Documented By: RICO Sodium Chloride (Normal Saline 0.9%) 1,000 mls @ 75 mls/hr IV CONT [facility] Last Admin: 09/22/23 06:43 Dose: 75 mls/hr Documented By: Infusion: 09/22/23 06:06 Dose: Infused Documented By: Admin: 09/21/23 16:46 Dose: 75 mls/hr Documented By: KAELYN Heparin Sodium/Dextrose (Heparin Drip) 25,000 unit in 500 mls @ 13.08 mls/hr IV CONT [facility]; Protocol Stop: 09/23/23 17:14 Last Titration: 09/23/23 08:06 Dose: 0 units/kg/hr, 0 mls/hr Documented By: MS(2) Co-signed By: GUSTABO Admin: 09/23/23 06:58 Dose: 12.94 units/kg/hr, 14.1 mls/hr Documented By: TOMI Co-signed By: TOYIN Titration: 09/23/23 06:58 Dose: Infused Documented By: TOMI Co-signed By: TOYIN Titration: 09/23/23 01:12 Dose: 12.94 units/kg/hr, 14.1 mls/hr Documented By: TOMI Co-signed By: TOYIN Admin: 09/21/23 17:46 Dose: 12 units/kg/hr, 13.08 mls/hr Documented By: GUSTABO Co-signed By: LIONEL Piperacillin Sod/Tazobactam (Sod 3.375 gm/ Sodium Chloride) 100 mls @ 25 mls/hr IV Q8H [facility] Last Admin: 09/25/23 13:34 Dose: Not Given Documented By: Infusion: 09/25/23 08:28 Dose: Infused Documented By: Admin: 09/25/23 03:39 Dose: 25 mls/hr Documented By: Infusion: 09/24/23 22:39 Dose: Infused Documented By: Admin: 09/24/23 18:39 Dose: 25 mls/hr Documented By: Infusion: 09/24/23 16:10 Dose: Infused Documented By: Admin: 09/24/23 11:56 Dose: 25 mls/hr Documented By: Infusion: 09/24/23 07:31 Dose: Infused Documented By: Admin: 09/24/23 03:31 Dose: 25 mls/hr Documented By: Infusion: 09/23/23 23:47 Dose: Infused Documented By: Admin: 09/23/23 19:47 Dose: 25 mls/hr Documented By: Infusion: 09/23/23 16:31 Dose: Infused Documented By: Admin: 09/23/23 12:07 Dose: 25 mls/hr Documented By: GUSTABO Piperacillin Sod/Tazobactam (Sod 4.5 gm/ Sodium Chloride) 100 mls @ 200 mls/hr IV NOW ONE Stop: 09/23/23 07:27 Last Infusion: 09/23/23 08:30 Dose: Infused Documented By: (2) Admin: 09/23/23 08:00 Dose: 200 mls/hr Documented By: (2) Lactated Ringer's (Lactated Ringers) 1,000 mls @ 42 mls/hr IV CONT [facility] Last Admin: 09/24/23 09:41 Dose: 42 mls/hr Documented By: TRISTON Acetaminophen (Ofirmev) 1,000 mg in 100 mls @ 400 mls/hr IV NOW ONE Stop: 09/24/23 09:06 Last Admin: 09/24/23 09:41 Dose: 400 mls/hr Documented By: TRISTON Lactated Ringer's (Lactated Ringers) 1,000 mls @ 120 mls/hr IV CONT [facility] Last Admin: 09/24/23 11:59 Dose: Not Given Documented By: ANIBAL Labetalol HCl (Labetalol 20 Mg/4 Ml Syringe) 5 mg IV NOW ONE Stop: 09/21/23 10:47 Last Admin: 09/21/23 10:58 Dose: 5 mg Documented By: RICO Labetalol HCl (Labetalol 20 Mg/4 Ml Syringe) 10 mg IV NOW ONE Stop: 09/21/23 11:39 Last Admin: 09/21/23 11:45 Dose: 10 mg Documented By: RICO Labetalol HCl (Labetalol 100 Mg Tablet) 100 mg PO NOW ONE Stop: 09/21/23 12:52 Last Admin: 09/21/23 13:07 Dose: 100 mg Documented By: RICO Labetalol HCl (Labetalol 20 Mg/4 Ml Syringe) 10 mg IV NOW ONE Stop: 09/21/23 13:53 Last Admin: 09/21/23 14:02 Dose: 10 mg Documented By: RICO Labetalol HCl (Labetalol 100 Mg Tablet) 100 mg PO BID [facility] Last Admin: 09/25/23 08:08 Dose: 100 mg Documented By: Admin: 09/24/23 20:48 Dose: 100 mg Documented By: Admin: 09/24/23 08:07 Dose: 100 mg Documented By: Admin: 09/23/23 19:46 Dose: 100 mg Documented By: Admin: 09/23/23 08:59 Dose: 100 mg Documented By: Admin: 09/22/23 20:00 Dose: 100 mg Documented By: Admin: 09/22/23 08:59 Dose: 100 mg Documented By: Admin: 09/21/23 20:45 Dose: 100 mg Documented By: Labetalol HCl (Labetalol 20 Mg/4 Ml Syringe) 10 mg IV Q5MIN PRN PRN Reason: SBP >190 or DBP >110 Labetalol HCl (Labetalol 20 Mg/4 Ml Syringe) 10 mg IV Q5MIN PRN PRN Reason: SBP >180 or DBP >110 Last Admin: 09/25/23 04:06 Dose: 10 mg Documented By: Admin: 09/24/23 18:39 Dose: 10 mg Documented By: Admin: 09/24/23 06:48 Dose: 10 mg Documented By: Admin: 09/24/23 05:21 Dose: 10 mg Documented By: Admin: 09/23/23 05:08 Dose: 10 mg Documented By: Admin: 09/23/23 04:25 Dose: 10 mg Documented By: Admin: 09/23/23 02:08 Dose: 10 mg Documented By: Admin: 09/22/23 22:02 Dose: 10 mg Documented By: Admin: 09/22/23 21:16 Dose: 10 mg Documented By: Admin: 09/22/23 20:34 Dose: 10 mg Documented By: Admin: 09/22/23 18:52 Dose: 10 mg Documented By: Admin: 09/22/23 18:41 Dose: 10 mg Documented By: LIONEL Labetalol HCl (Labetalol 20 Mg/4 Ml Syringe) 5 mg IV PRN PRN; Protocol PRN Reason: SBP>180 Levothyroxine Sodium (Levothyroxine 88 Mcg Tablet) 88 mcg PO DAILY@0600 [facility] Last Admin: 09/25/23 06:38 Dose: 88 mcg Documented By: Admin: 09/24/23 05:18 Dose: 88 mcg Documented By: Admin: 09/23/23 06:01 Dose: 88 mcg Documented By: Admin: 09/22/23 06:43 Dose: 88 mcg Documented By: Liothyronine Sodium (Liothyronine 5 Mcg Tablet) 5 mcg PO DAILY@0600 [facility] Last Admin: 09/25/23 06:38 Dose: 5 mcg Documented By: Admin: 09/24/23 05:18 Dose: 5 mcg Documented By: Admin: 09/23/23 06:01 Dose: 5 mcg Documented By: Admin: 09/22/23 06:42 Dose: 5 mcg Documented By: Metoclopramide HCl (Metoclopramide 10 Mg/2 Ml Inj) 10 mg IV Q6HR PRN PRN Reason: Nausea And Vomiting Last Admin: 09/23/23 08:01 Dose: 10 mg Documented By: MS(2) Admin: 09/22/23 19:42 Dose: 10 mg Documented By: TOMI Naloxone HCl (Naloxone 0.4 Mg/Ml Vial) 0.2 mg IV Q2MIN PRN PRN Reason: Opiate Reversal Nf (Minoxidil 2.5 Mg (Tablet)) 2.5 mg PO DAILY [facility] Last Admin: 09/22/23 09:29 Dose: Not Given Documented By: LIONEL Nf (Minoxidil 2.5 Mg (Tablet)) 5 mg PO DAILY [facility] Nf - Minoxidil 5 Mg 5 mg PO DAILY [facility] Last Admin: 09/22/23 13:10 Dose: Not Given Documented By: LIONEL Nf - Minoxidil 5 Mg 5 mg PO DAILY [facility] Last Admin: 09/25/23 08:16 Dose: 5 mg Documented By: Admin: 09/24/23 08:09 Dose: 5 mg Documented By: Admin: 09/23/23 08:58 Dose: 5 mg Documented By: Admin: 09/22/23 13:03 Dose: 5 mg Documented By: GUSTABO Ondansetron HCl (Ondansetron 4 Mg/2 Ml Inj) 4 mg IV NOW ONE Stop: 09/21/23 10:45 Last Admin: 09/21/23 10:57 Dose: 4 mg Documented By: RICO Ondansetron HCl (Ondansetron 4 Mg/2 Ml Inj) 4 mg IV Q4HR PRN PRN Reason: Nausea And Vomiting Last Admin: 09/25/23 09:50 Dose: 4 mg Documented By: Admin: 09/22/23 18:38 Dose: 4 mg Documented By: LIONEL Ondansetron HCl (Ondansetron 4 Mg/2 Ml Inj) 4 mg IV NOW PRN PRN Reason: Nausea And Vomiting Potassium Chloride (Potassium Chloride 20 Meq Tab) 40 meq PO NOW ONE Stop: 09/22/23 08:12 Last Admin: 09/22/23 09:00 Dose: 40 meq Documented By: LIONEL Potassium Chloride (Potassium Chloride 20 Meq Tab) 40 meq PO NOW ONE Stop: 09/23/23 11:46 Last Admin: 09/23/23 12:07 Dose: 40 meq Documented By: GUSTABO Potassium Chloride (Potassium Chloride 20 Meq Tab) 40 meq PO NOW ONE Stop: 09/24/23 08:08 Last Admin: 09/24/23 11:56 Dose: 40 meq Documented By: ANIBAL Potassium Chloride (Potassium Chloride 20 Meq Tab) 40 meq PO Q6H [facility] Stop: 09/25/23 13:31 Last Admin: 09/25/23 08:16 Dose: 40 meq Documented By: LUIS Spironolactone (Spironolactone 25 Mg Tablet) 50 mg PO NOW ONE Stop: 09/21/23 12:52 Last Admin: 09/21/23 13:07 Dose: 50 mg Documented By: RICO Spironolactone (Spironolactone 25 Mg Tablet) 25 mg PO BID [facility] Last Admin: 09/25/23 08:08 Dose: 25 mg Documented By: Admin: 09/24/23 20:48 Dose: 25 mg Documented By: Admin: 09/24/23 08:07 Dose: 25 mg Documented By: Admin: 09/23/23 19:47 Dose: 25 mg Documented By: Admin: 09/23/23 09:00 Dose: 25 mg Documented By: Admin: 09/22/23 20:00 Dose: 25 mg Documented By: Admin: 09/22/23 08:59 Dose: 25 mg Documented By: Admin: 09/21/23 20:45 Dose: 25 mg Documented By: Vital Signs Vital signs: Vital Signs - 8 hr 09/21/23 10:38 09/21/23 10:41 09/21/23 10:41 Temperature 97.1 F L Pulse Rate 106 H 107 H Respiratory Rate 14 Blood Pressure 236/116 H 236/116 H Pulse Oximetry 99 98 Oxygen Delivery Method Room Air 09/21/23 10:58 09/21/23 11:00 09/21/23 11:30 Temperature Pulse Rate 104 H 102 H 94 H Respiratory Rate 22 Blood Pressure 236/116 H 249/109 H Pulse Oximetry 99 98 Oxygen Delivery Method Room Air 09/21/23 11:31 09/21/23 11:31 09/21/23 11:37 Temperature Pulse Rate 93 H 100 H Respiratory Rate Blood Pressure 249/109 H 249/109 H Pulse Oximetry 98 Oxygen Delivery Method 09/21/23 11:45 09/21/23 11:50 09/21/23 11:50 Temperature Pulse Rate 100 H 90 Respiratory Rate Blood Pressure 249/109 H 206/101 H Pulse Oximetry 97 Oxygen Delivery Method 09/21/23 11:51 09/21/23 11:51 09/21/23 11:52 Temperature Pulse Rate 87 Respiratory Rate Blood Pressure 199/86 H 217/98 H Pulse Oximetry 97 Oxygen Delivery Method 09/21/23 11:52 09/21/23 11:53 09/21/23 11:53 Temperature Pulse Rate 86 86 Respiratory Rate 48 H 40 H Blood Pressure 201/90 H Pulse Oximetry 97 96 Oxygen Delivery Method 09/21/23 11:54 09/21/23 11:54 09/21/23 11:55 Temperature Pulse Rate 86 85 Respiratory Rate 20 Blood Pressure 200/91 H Pulse Oximetry 96 99 Oxygen Delivery Method 09/21/23 11:55 09/21/23 12:00 09/21/23 12:00 Temperature Pulse Rate 85 Respiratory Rate Blood Pressure 199/94 H 177/74 H Pulse Oximetry 97 Oxygen Delivery Method 09/21/23 12:04 09/21/23 12:05 09/21/23 12:05 Temperature Pulse Rate 100 H 90 Respiratory Rate 22 Blood Pressure 199/94 H 167/72 H Pulse Oximetry 97 Oxygen Delivery Method 09/21/23 12:17 09/21/23 13:00 09/21/23 13:00 Temperature Pulse Rate 92 H Respiratory Rate Blood Pressure 167/72 H 238/108 H Pulse Oximetry 96 Oxygen Delivery Method 09/21/23 13:07 09/21/23 13:11 09/21/23 13:11 Temperature Pulse Rate 100 H Respiratory Rate Blood Pressure 238/108 H 229/103 H Pulse Oximetry 98 Oxygen Delivery Method 09/21/23 13:15 09/21/23 13:15 09/21/23 13:20 Temperature Pulse Rate 96 H 94 H Respiratory Rate Blood Pressure 219/105 H Pulse Oximetry 98 97 Oxygen Delivery Method 09/21/23 13:20 09/21/23 13:25 09/21/23 13:25 Temperature Pulse Rate 92 H Respiratory Rate Blood Pressure 224/104 H 236/112 H Pulse Oximetry 96 Oxygen Delivery Method 09/21/23 13:30 09/21/23 13:31 09/21/23 13:31 Temperature Pulse Rate 91 H 93 H Respiratory Rate Blood Pressure 244/107 H Pulse Oximetry 96 98 Oxygen Delivery Method 09/21/23 13:35 09/21/23 13:35 09/21/23 13:40 Temperature Pulse Rate 94 H 96 H Respiratory Rate Blood Pressure 212/114 H Pulse Oximetry 99 97 Oxygen Delivery Method 09/21/23 13:40 09/21/23 13:45 09/21/23 13:45 Temperature Pulse Rate 94 H Respiratory Rate Blood Pressure 221/115 H 230/105 H Pulse Oximetry 97 Oxygen Delivery Method 09/21/23 13:54 09/21/23 13:54 09/21/23 13:55 Temperature Pulse Rate 102 H 100 H Respiratory Rate Blood Pressure 219/101 H Pulse Oximetry 98 98 Oxygen Delivery Method 09/21/23 13:55 09/21/23 14:00 09/21/23 14:02 Temperature Pulse Rate 94 H Respiratory Rate Blood Pressure 245/110 H 231/109 H Pulse Oximetry 96 Oxygen Delivery Method 09/21/23 14:03 09/21/23 14:03 09/21/23 14:05 Temperature Pulse Rate 92 H Respiratory Rate Blood Pressure 231/109 H 227/107 H Pulse Oximetry 95 Oxygen Delivery Method 09/21/23 14:05 09/21/23 14:10 09/21/23 14:10 Temperature Pulse Rate 94 H 85 Respiratory Rate Blood Pressure 206/92 H Pulse Oximetry 96 95 Oxygen Delivery Method 09/21/23 14:15 09/21/23 14:15 09/21/23 14:20 Temperature Pulse Rate 87 Respiratory Rate 30 H Blood Pressure 198/86 H 193/91 H Pulse Oximetry 94 Oxygen Delivery Method 09/21/23 14:20 Temperature Pulse Rate 79 Respiratory Rate 27 H Blood Pressure Pulse Oximetry 96 Oxygen Delivery Method Medical Decision Making Lab Data 09/25/23 04:35 09/25/23 04:35 Labs: Lab Results 09/21/23 09/21/23 09/21/23 Range/Units 10:46 12:35 12:55 WBC 23.6 H (4.5-11.0) X10^3/uL RBC 6.77 H (4.0-5.2) X10^6/uL Hgb 12.9 (12.0-16.0) g/dL Hct 40.0 (36-46) % MCV 59.1 L (80-100) fL MCH 19.0 L (26-34) PG MCHC 32.1 (30-36) % RDW 17.1 H (11.6-14.8) % Plt Count 279 (150-400) X10^3/uL Neut % (Auto) Not Reportable Lymph % (Auto) Not Reportable [place] % (Auto) Not Reportable Eos % (Auto) Not Reportable Baso % (Auto) Not Reportable Lymph # (Auto) Not Reportable [place] # (Auto) Not Reportable Baso # (Auto) Not Reportable Total Counted 85 Seg Neutrophils % 87.1 H (38-70) % Lymphocytes % (Manual) 7.1 L (25-45) % Monocytes % (Manual) 5.9 (2-11) % Neutrophils # (Manual) 90333 H (8397-1454) /uL Platelet Estimate RBC Morphology See below Poikilocytosis 2+ H Anisocytosis 2+ H Microcytosis 2+ H Ovalocytes 1+ H PT 12.6 H (9.4-12.5) SECONDS INR 1.1 (0.9-1.3) APTT 35 (25.1-36.5) SECONDS Sodium 136 L (137-145) mmol/L Potassium 3.7 (3.4-5.1) mmol/L Chloride 100 (98-107) mmol/L Carbon Dioxide 23 (22-32) mmol/L BUN 19 H (7-17) mg/dL Creatinine 0.75 (0.52-1.04) mg/dL Estimated GFR > 60 (>60) mL/min BUN/Creatinine Ratio 25.3 H (6-22) Glucose 239 H (80-110) mg/dL Lactate 3.3 H (0.7-2.1) mmol/L Calcium 9.9 (8.4-10.2) mg/dL Total Bilirubin 1.7 H (0.2-1.3) mg/dL AST 46 H (14-36) IU/L ALT 25 (<35) IU/L Alkaline Phosphatase 109 (38-126) U/L Total Creatine Kinase 591 H (30-135) U/L Troponin I 0.052 H 0.184 H* (0.01-0.034) ng/mL NT-Pro-B Natriuret Pep 3210 H (<450) pg/mL Total Protein 8.5 H (6.3-8.2) g/dL Albumin 4.8 (3.5-5.0) g/dL Globulin 3.7 (1.7-4.1) g/dL Albumin/Globulin Ratio 1.3 (1.0-2.8) Lipase 130 (23-300) U/L Procalcitonin 0.08 (<0.5) ng/mL Urine Color Yellow Urine Appearance Sl cloudy Urine pH 6.5 (4.5-8.0) Ur Specific [place] 1.020 (1.000-1.035) Urine Protein 2+ H (Negative) Urine Glucose (UA) 1+ H (Negative) g/dL Urine Ketones 1+ H (NEGATIVE) Urine Occult Blood 2+ H (Negative) Urine Nitrate Negative (Negative) Urine Bilirubin Negative (NEGATIVE) Urine Urobilinogen 0.2 (0.2) E.U./dL Ur Leukocyte Esterase Negative (NEGATIVE) Urine RBC 5-10/hpf H (0-5/HPF) Urine WBC 1-5/hpf (0-5/HPF) Ur Squamous Epith Cells 0-1 /hpf (0-5/HPF) Urine Bacteria Many (>30) H (None) Ur Culture Indicated? Specimen cultured Vol Urine Centrifuged 10ml (spun) 09/21/23 Range/Units 13:01 WBC (4.5-11.0) X10^3/uL RBC (4.0-5.2) X10^6/uL Hgb (12.0-16.0) g/dL Hct (36-46) % MCV (80-100) fL MCH (26-34) PG MCHC (30-36) % RDW (11.6-14.8) % Plt Count (150-400) X10^3/uL Neut % (Auto) Lymph % (Auto) Butler % (Auto) Eos % (Auto) Baso % (Auto) Lymph # (Auto) Butler # (Auto) Baso # (Auto) Total Counted Seg Neutrophils % (38-70) % Lymphocytes % (Manual) (25-45) % Monocytes % (Manual) (2-11) % Neutrophils # (Manual) (1252-8350) /uL Platelet Estimate RBC Morphology Poikilocytosis Anisocytosis Microcytosis Ovalocytes PT (9.4-12.5) SECONDS INR (0.9-1.3) APTT (25.1-36.5) SECONDS Sodium (137-145) mmol/L Potassium (3.4-5.1) mmol/L Chloride (98-107) mmol/L Carbon Dioxide (22-32) mmol/L BUN (7-17) mg/dL Creatinine (0.52-1.04) mg/dL Estimated GFR (>60) mL/min BUN/Creatinine Ratio (6-22) Glucose (80-110) mg/dL Lactate 2.7 H (0.7-2.1) mmol/L Calcium (8.4-10.2) mg/dL Total Bilirubin (0.2-1.3) mg/dL AST (14-36) IU/L ALT (<35) IU/L Alkaline Phosphatase (38-126) U/L Total Creatine Kinase (30-135) U/L Troponin I (0.01-0.034) ng/mL NT-Pro-B Natriuret Pep (<450) pg/mL Total Protein (6.3-8.2) g/dL Albumin (3.5-5.0) g/dL Globulin (1.7-4.1) g/dL Albumin/Globulin Ratio (1.0-2.8) Lipase (23-300) U/L Procalcitonin (<0.5) ng/mL Urine Color Urine Appearance Urine pH (4.5-8.0) Ur Specific [place] (1.000-1.035) Urine Protein (Negative) Urine Glucose (UA) (Negative) g/dL Urine Ketones (NEGATIVE) Urine Occult Blood (Negative) Urine Nitrate (Negative) Urine Bilirubin (NEGATIVE) Urine Urobilinogen (0.2) E.U./dL Ur Leukocyte Esterase (NEGATIVE) Urine RBC (0-5/HPF) Urine WBC (0-5/HPF) Ur Squamous Epith Cells (0-5/HPF) Urine Bacteria (None) Ur Culture Indicated? Vol Urine Centrifuged Imaging Data Chest x-ray: Radiologist's Impression: ?candesartan, diphenhydramine, guanfacine, amlodipine, atenolol, diltiazem, fosinopril, lisinopril, metoprolol, nifedipine, propranolol, valsartan (More??) Close Head CT (Signed) Jose Maria Fernando - 09/21/23 Chest X-Ray (Signed) Barbi Fernandobasilia - 09/21/23 Mammogram Diagnostic (Signed) Mei Vela - 11/12/22 Breast Ultrasound (Signed) DaneMei - 11/12/22 Thoracic Spine X-Ray (Signed) Jett Araujo - 04/22/22 Breast Ultrasound (Signed) Micah Salazarw - 01/12/21 Mammogram Diagnostic (Signed) Ez Salazar - 01/12/21 Mammogram Diagnostic (Signed) Lisa Araujoon - 07/14/20 Breast Ultrasound (Signed) Jett Araujo - 07/14/20 Mammogram Diagnostic (Signed) Call,González - 01/18/20 Breast Ultrasound (Signed) Call,González - 01/18/20 Mammogram Screening (Signed) DaneMei - 07/13/[address] (Signed) PearsonVincent - 07/13/19 Lumbar Spine X-Ray (Signed) PearsonVincent adams - 06/30/19 Bone Densitometry 04/12/19 Chest X-Ray (Signed) Vincent Aguayo - 03/03/19 Bone Densitometry 08/07/18 Mammogram Diagnostic (Addendum) Marcos Stoner - 06/09/18 Breast Biopsy Ultrasound (Signed) Marcos Stoner - 06/09/18 Mammogram, Additional Views (Signed) Rony Myers - 05/17/18 Breast Ultrasound (Signed) Rony Myers - 05/17/18 Mammogram Screening (Signed) Rony Myers - 05/03/18 Launch?[address] [address] XRay Report Signed Patient: Teresa Pederson MR#: [id number] : 1945 Acct:[id number] Age/Sex: 78 / F Date of Service: 09/21/23 Loc: ED Accession Number: [id number] Procedure: XR chest 1V Ordering Provider: Zulma Singh D.O. PROCEDURE: XR CHEST 1V INDICATIONS: vomiting, htn TECHNIQUE: One view of the chest was acquired. COMPARISON: [facility], , XR CHEST 1V, 03/03/2019, 11:44. FINDINGS: Surgical changes and devices: None. Lungs and pleura: Lungs are clear. No pleural effusions or pneumothorax. Mediastinum: Mediastinal contours appear normal. Heart size is normal. Bones and chest wall: No suspicious bony lesions. Overlying soft tissues appear unremarkable. IMPRESSION: No acute cardiopulmonary abnormality is seen. Dictated by: Jose Maria Fernando M.D. on 09/21/2023 at 11:38 Approved by: Jose Maria Fernando M.D. on 09/21/2023 at 11:39 CT scan - head: Radiologist's Impression: Teresa Pederson??78??F??1945 ? Allergy/Adv: RONAN Inhibitors, ARB-Angiotensin Receptor Antagonist, codeine, oxycodone, Beta-Blockers (Beta-Adrenergic Bloc, candesartan, diphenhydramine, guanfacine, amlodipine, atenolol, diltiazem, fosinopril, lisinopril, metoprolol, nifedipine, propranolol, valsartan (More??) Close Head CT (Signed) Jose Maria Fernando - 09/21/23 Chest X-Ray (Signed) Jose Maria Fernando - 09/21/23 Mammogram Diagnostic (Signed) Mie Vela - 11/12/22 Breast Ultrasound (Signed) Mei Vela - 11/12/22 Thoracic Spine X-Ray (Signed) Jett Araujo - 04/22/22 Breast Ultrasound (Signed) Ez Salazar - 01/12/21 Mammogram Diagnostic (Signed) Ez Salazar - 01/12/21 Mammogram Diagnostic (Signed) Jett Araujo - 07/14/20 Breast Ultrasound (Signed) Jett Araujo - 07/14/20 Mammogram Diagnostic (Signed) González Neff - 01/18/20 Breast Ultrasound (Signed) González Neff - 01/18/20 Mammogram Screening (Signed) Mei Vela - 07/13/[address] (Signed) Vincent Aguayo - 07/13/19 Lumbar Spine X-Ray (Signed) Vincent Aguayo - 06/30/19 Bone Densitometry 04/12/19 Chest X-Ray (Signed) Vincent Aguayo - 03/03/19 Bone Densitometry 08/07/18 Mammogram Diagnostic (Addendum) Marcos Stoner - 06/09/18 Breast Biopsy Ultrasound (Signed) Marcos Stoner - 06/09/18 Mammogram, Additional Views (Signed) Rony Myers - 05/17/18 Breast Ultrasound (Signed) Rony Myers - 05/17/18 Mammogram Screening (Signed) Rony Myers - 05/03/18 Launch?Image [address] [address] [address] Scan Report Signed Patient: Teresa Pederson MR#: [id number] : 1945 Acct:[id number] Age/Sex: 78 / F Date of Service: 09/21/23 Loc: ED Accession Number: [id number] Procedure: CT head/brain wo con Ordering Provider: Zulma Singh D.O. PROCEDURE: CT HEAD/BRAIN WO CON INDICATIONS: had patterson, no fuzzy, htn 230s/110s TECHNIQUE: Noncontrast 4.5 mm thick angled axial sections acquired from the foramen magnum to the vertex, with coronal and sagittal reformats. For radiation dose reduction, the following was used: automated exposure control, adjustment of mA and/or kV according to patient size. COMPARISON: [facility], CT, HEAD WITHOUT CONTRAST, 03/15/2016, 10:25. FINDINGS: Image quality: Diagnostic. CSF spaces: Basal cisterns are patent. No extra-axial fluid collections. The ventricles are symmetric in size and shape. Brain: No intracranial bleeds or masses. There is cerebral volume loss for age, with resultant ventricular and sulcal prominence. There are periventricular and deep white matter chronic small vessel ischemic changes. There is intracranial internal carotid artery atherosclerosis. Skull and face: Calvarium and visualized facial bones appear intact, without suspicious lesions. Sinuses: Visualized sinuses and mastoids are clear. IMPRESSION: No acute intracranial pathology. Dictated by: Jose Maria Fernando M.D. on 09/21/2023 at 11:40 Approved by: Jose Maria Fernando M.D. on 09/21/2023 at 11:40 CT chest/abd/pelvis: Radiologist's Impression: [address] [address] [address] Scan Report Signed Patient: Teresa Pederson MR#: [id number] : 1945 Acct:[id number] Age/Sex: 78 / F Date of Service: 09/21/23 Loc: ED Accession Number: [id number] Procedure: CT angio chest abdomen pelvis Ordering Provider: Zulma Singh D.O. PROCEDURE: CT ANGIO CHEST ABDOMEN PELVIS INDICATIONS: n/v htn TECHNIQUE: Precontrast 5 mm thick sections acquired from the lung apices to the iliac crests. After the administration of intravenous contrast, 2.5 mm thick sections again acquired from the lung apices to the iliac crests. Maximum intensity projection (MIP) oblique sagittal and coronal reformats were then acquired. For radiation dose reduction, the following was used: automated exposure control. COMPARISON: None. FINDINGS: Image quality: Diagnostic. AORTA: There is moderate calcific plaque causing mild diffuse stenosis of the thoracoabdominal aorta. No evidence of aneurysm nor dissection. CHEST: Lower Neck: No enlarged lymph nodes. Thyroid: Not seen. Axillae: No enlarged lymph nodes. Chest Wall: Unremarkable. Lungs and Pleura: No pneumothorax or pleural effusions. No consolidation or suspicious nodules. Heart: Heart size is normal. No pericardial effusion. Calcification of the coronary vasculature. Thoracic Vessels: Pulmonary arteries demonstrate normal size. Mediastinum and Anjali: No enlarged lymph nodes. Esophagus: No wall thickening. Small hiatal hernia. ABDOMEN: Liver: No solid mass. Gallbladder: There is thickening of the gallbladder wall, measuring roughly 5 mm. Biliary ducts: No biliary dilation. Pancreas: No ductal dilation. Peripherally enhancing exophytic 28 mm diameter pancreatic tail mass is present. Spleen: Size is within normal limits. Adrenal Glands: No adrenal nodules. Kidneys and Ureters: No hydronephrosis. Bilateral renal scarring. Small nonobstructing calculi within the right interpolar and inferior pole kidney. No solid mass. No complex renal cystic lesion which requires follow up. Stomach and Bowel: Normal colonic caliber, without significant wall thickening. Normal appendix. Peritoneum: No abnormal intraperitoneal fluid. No free air. Ventral Wall: No hernia. Abdominal Nodes: No retroperitoneal or mesenteric adenopathy by size criteria. Vessels: Inferior vena cava is normal in size. PELVIS: Pelvic Organs: Unremarkable. Bladder: Unremarkable. Pelvic Nodes: No enlarged lymph nodes. Miscellaneous: No inguinal hernias are seen. Bones: Severe chronic L1 compression fracture. IMPRESSION: 1. Gallbladder wall thickening, possibly indicating cholecystitis in the appropriate clinical setting. 2. Coronary artery disease. 3. No acute process involving the of the thoracoabdominal aorta. 4. Pancreatic tail mass. Nonemergent outpatient follow-up pancreatic protocol MRI is recommended for further assessment. 5. Hiatal hernia. 6. Bilateral renal scarring. 7. Normal appendix. Dictated by: Jose Maria Fernando M.D. on 09/21/2023 at 12:26 Approved by: Jose Maria Fernando M.D. on 09/21/2023 at 12:32 ECG Data Attestation: I personally reviewed and interpreted this ECG as follows: Prior ECG tracings: available for review Interpretation: Sinus tachycardia rate of 104 SD 196 QRS 88 QTC of 473. Q-wave in lead 3, [address] No acute [address] elevation. No clear depression. Patient has prior from 03/03/[address]-elevation on prior from 03/15/2016 had some nonspecific change but no elevation or depression noted and appears fairly similar EKG 2. Shows sinus rhythm first-degree AV block rate of 96 SD 214 QRS 86 QTC of 505. No acute ST elevation. Q-wave but also present on prior. No elevation in lateral leads. Overall nonspecific change but no clear ST depression. MDM Narrative Medical decision making narrative: 78-year-old female who presents with complaint of hypertension developed a headache yesterday that is improved but feels fuzzy and has had nausea and vomiting starting last night into today. Patient's blood pressure medications were changed because of Medicare will not pay for her Catapres so she was switched to minoxidil on Tuesday. Patient has been hypertensive and is quite elevated here. She has been able to keep down her other blood pressure medications as well for the past day. Patient has a white count of 23, hemoglobin of 12.9 platelets of 279. INR is 1.1, sodium is 136 potassium 3 7, CO2 is 23 with a BUN 19, glucose of 239. Bilirubin is elevated at 1.7, AST is 46 with a ALT of 25, alk-phos of 109, negative lipase. Total CK is 591 with a troponin of 0.052 [place] [address] is negative Chest x-ray is negative Patient's LFTs were elevated she does not have any tenderness but does have a white count, she is afebrile she is hypertensive rather than hypotensive. CT chest abdomen pelvis angio was obtained shows gallbladder wall thickening possibly cholecystitis and appropriate setting, coronary artery disease no acute thoracoabdominal aortic process, pancreatic tail mass. Hiatal hernia. Bilateral renal scarring. Normal appendix. Patient is nontender in her right upper quadrant. Patient's blood pressure did not make much difference with 5 mg labetalol but did after 10 mg she came down to the 160-170 range. Did receive a dose of her oral home Catapres, labetalol and spironolactone. She has been tolerating but pressure continued to go back up. Patient denies any chest pain or pressure, no shortness of breath she still has some mild nausea but isn't vomiting. She was sipping on water in the room. But repeat troponin is 0.184. Do not appreciate acute or dynamic EKG changes. We will likely have to start IV antihypertensive. Spoke with cardiology, Dr. Loya fragments nitro glycerin or nitrates, echo after hypertension has improved, and as troponins resolved chemical stress test. Spoke with Dr. Arnold, hospitalist who accepts for ICU. We will start nicardipine. Critical Care Time Critical Care Time Critical Care Time: Yes Total Critical Care Time: 25 Attestation: The high probability of a clinically significant, sudden or life threatening deterioration of the [cardiac, pulm] system(s) required my full and direct attention, intervention and personal management. The aggregate critical care time was [] minutes. This time is in addition to time spent performing reported procedures but includes the following: [x] Data Review and interpretation [x] Patient assessment and monitoring of vital signs [x] Documentation [x] Medication orders and management Discharge Plan Departure Patient Disposition: Admitted As Inpatient Clinical Impression: Vomiting, Hypertensive emergency Admit Date/Time: 09/21/23 14:22 Admit Provider: Mio Arnold
[2023-09-21 11:03] LABS: PTT Partial Thromboplastin Tim 35 SECONDS (25.1-36.5)
[2023-09-21 11:04] LABS: Alanine Aminotransferase 25 IU/L (<35); Albumin 4.8 g/dL (3.5-5.0); Albumin Globulin Ratio 1.3 (1.0-2.8); Alkaline Phosphatase 109 U/L (38-126); Aspartate Aminotransferase 46 IU/L (14-36); BUN Creatinine Ratio 25.3 (6-22); Bilirubin Total 1.7 mg/dL (0.2-1.3); Blood Urea Nitrogen 19 mg/dL (7-17); Calcium 9.9 mg/dL (8.4-10.2); Carbon Dioxide 23 mmol/L (22-32); Chloride 100 mmol/L (98-107); Creatine Kinase 591 U/L (30-135); Estimated Glomerular Filt Rate > 60 mL/min (>60); Globulin 3.7 g/dL (1.7-4.1); Glucose 239 mg/dL (80-110); HEMOLYSIS < 15 (0-50); Lipase 130 U/L (23-300); Potassium 3.7 mmol/L (3.4-5.1); Sodium 136 mmol/L (137-145); Total Protein 8.5 g/dL (6.3-8.2)
--- NOTE | 2023-09-21 11:09 | PC.NURSE ---
Pt arrived at the ED with her today because her bp has been high. Pt has been taking clonidine for bp and medicare recently ceased coverage of medication under the claim that clonidine is not a bp medication. Pt's pcp switched medication but pt has been unable to take it because she has been experiencing extreme n/v. Pt denies any cp or sob. Currently reporting nausea. at bedside and reports that pt has had some cognitive decline over the last few months and is confused at baseline. Pt's bp is currently 236/116 and HR 105.
[2023-09-21 11:15] LABS: NT-proBNP (BNP-Adult 18+) 3210 pg/mL (<450); Troponin I 0.052 ng/mL (0.01-0.034)
[2023-09-21 11:27] LABS: Lactate (Lactic Acid) 3.3 mmol/L (0.7-2.1); Lymphocytes Percent Manual 7.1 % (25-45); Monocytes Percent Manual 5.9 % (2-11); Neutrophils Absolute Manual 20556 /uL (3000-5900); Segmented Neutrophils Percent 87.1 % (38-70); Total Cells Counted 85
[2023-09-21 11:28] LABS: Anisocytosis 2+; Microcytosis 2+; Ovalocytes 1+; Poikilocytosis 2+
[2023-09-21 11:44] LABS: Procalcitonin 0.08 ng/mL (<0.5)
[2023-09-21] MEDS: LABETALOL 20 MG/4 ML SYRINGE 10 MG IV ×2 (11:45→14:02)
--- NOTE | 2023-09-21 11:52 | DI.CT.S_ITS ---
PROCEDURE: CT ANGIO CHEST ABDOMEN PELVIS INDICATIONS: n/v htn TECHNIQUE: Precontrast 5 mm thick sections acquired from the lung apices to the iliac crests. After the administration of intravenous contrast, 2.5 mm thick sections again acquired from the lung apices to the iliac crests. Maximum intensity projection (MIP) oblique sagittal and coronal reformats were then acquired. For radiation dose reduction, the following was used: automated exposure control. COMPARISON: None. FINDINGS: Image quality: Diagnostic. AORTA: There is moderate calcific plaque causing mild diffuse stenosis of the thoracoabdominal aorta. No evidence of aneurysm nor dissection. CHEST: Lower Neck: No enlarged lymph nodes. Thyroid: Not seen. Axillae: No enlarged lymph nodes. Chest Wall: Unremarkable. Lungs and Pleura: No pneumothorax or pleural effusions. No consolidation or suspicious nodules. Heart: Heart size is normal. No pericardial effusion. Calcification of the coronary vasculature. Thoracic Vessels: Pulmonary arteries demonstrate normal size. Mediastinum and Anjali: No enlarged lymph nodes. Esophagus: No wall thickening. Small hiatal hernia. ABDOMEN: Liver: No solid mass. Gallbladder: There is thickening of the gallbladder wall, measuring roughly 5 mm. Biliary ducts: No biliary dilation. Pancreas: No ductal dilation. Peripherally enhancing exophytic 28 mm diameter pancreatic tail mass is present. Spleen: Size is within normal limits. Adrenal Glands: No adrenal nodules. Kidneys and Ureters: No hydronephrosis. Bilateral renal scarring. Small nonobstructing calculi within the right interpolar and inferior pole kidney. No solid mass. No complex renal cystic lesion which requires follow up. Stomach and Bowel: Normal colonic caliber, without significant wall thickening. Normal appendix. Peritoneum: No abnormal intraperitoneal fluid. No free air. Ventral Wall: No hernia. Abdominal Nodes: No retroperitoneal or mesenteric adenopathy by size criteria. Vessels: Inferior vena cava is normal in size. PELVIS: Pelvic Organs: Unremarkable. Bladder: Unremarkable. Pelvic Nodes: No enlarged lymph nodes. Miscellaneous: No inguinal hernias are seen. Bones: Severe chronic L1 compression fracture. IMPRESSION: 1. Gallbladder wall thickening, possibly indicating cholecystitis in the appropriate clinical setting. 2. Coronary artery disease. 3. No acute process involving the of the thoracoabdominal aorta. 4. Pancreatic tail mass. Nonemergent outpatient follow-up pancreatic protocol MRI is recommended for further assessment. 5. Hiatal hernia. 6. Bilateral renal scarring. 7. Normal appendix. Dictated by: Jose Maria Fernando M.D. on 09/21/2023 at 12:26 Approved by: Jose Maria Fernando M.D. on 09/21/2023 at 12:32
[2023-09-21] MEDS: cloNIDine 0.1 MG TABLET 0.2 MG PO (12:17)
[2023-09-21 12:47] LABS: Appearance Urine UA SL CLOUDY; Bilirubin Urine UA NEGATIVE (NEGATIVE); Color Urine UA YELLOW; Glucose Urine UA 1+ g/dL (Negative); Ketones Urine UA 1+ (NEGATIVE); Leukocyte Esterase Urine UA NEGATIVE (NEGATIVE); Nitrite Urine UA NEGATIVE (Negative); Occult Blood Urine UA 2+ (Negative); Protein Urine UA 2+ (Negative); Urobilinogen Urine UA 0.2 E.U./dL (0.2)
[2023-09-21 12:48] LABS: pH Urine UA 6.5 (4.5-8.0)
[2023-09-21 12:50] LABS: Bacteria Urine Many (>30); Culture Indicated Urine Specimen Cultured; RBC Urine 5-10/HPF (0-5/HPF); Squamous Epithelial Cell Urine 0-1 /HPF (0-5/HPF); Urine Volume 10mL (spun); WBC Urine 1-5/HPF (0-5/HPF)
[2023-09-21 13:00] LABS: Reflexed Lactate in 2 Hours Y
[2023-09-21] MEDS: SPIRONOLACTONE 25 MG TABLET 50 MG PO (13:07)
[2023-09-21] MEDS: LABETALOL 100 MG TABLET PO ×2 (13:07→20:45)
[2023-09-21 13:32] LABS: Lactate 2HR (Lactic Acid Rflx) 2.7 mmol/L (0.7-2.1)
[2023-09-21 13:35] LABS: Troponin I 0.184 ng/mL (0.01-0.034)
--- NOTE | 2023-09-21 14:40 | P.HP_ITS ---
History of Present Illness History of Present Illness Date Patient Seen: 09/21/23 Chief complaint: bp spiking over 200 over night /vomitting Narrative: The patient is an 78-year-old female presents with headache and hypertensive urgency. She would initial systolic blood pressure of 230. She has a history of hypertension and breast cancer with previous lumpectomy and chemo and radiation therapy. She was initially on Catapres and this was discontinued due to a change in coverage for a Medicare. She took her last dose on Tuesday and was started on minoxidil Tuesday morning. She began to be feel ill on Tuesday with headache and this led to nausea and vomiting Tuesday evening. She also feels mentally fuzzy. She presented to the ED was found to be extremely hypertensive. She does take labetalol 100 mg b.i.d. as well as spironolactone 50 mg b.i.d.. She notes a pressures have been high at home as well for the last day. She denies any alcohol or drug use. Her primary care doctor is Dr. Thomas. In the emergency department she was given a dose of labetalol at transient improvement of pressure and then rebound hypertension. She will be started on nicardipine and her medications will be re-loaded orally will wean this over the next 12-24 hours. She did have a CT scan which was negative for evidence of dissection. A brain CT was also normal. When I spoke to her she demonstrates significant cognitive impairment. She has in no distress. She has not able to report much in terms of specific details to me. She denies chest pain or shortness of breath. Her blood pressure is 148 systolic upon arrival and her nicardipine was stopped in the emergency department before she came up to the floor. [facility] Medical History Mumps Measles Chicken pox Thalassemia Dementia Polyneuropathy following chemotherapy History of breast cancer History of endometrial cancer Acquired hypothyroidism Mixed hyperlipidemia Essential hypertension (~1986) Urinary incontinence without sensory awareness Urge incontinence Pelvic pain in female Lower urinary tract symptoms (LUTS) Postmenopausal atrophic vaginitis Thyroid disease Osteoporosis Hx of migraine headaches Anemia Breast cancer (~2017) Surgical History Anesthesia Status post hysterectomy (08/02/12) Status post parathyroidectomy Status post surgery (06/09/12) Family History Sister Cancer Kidney stones Father Diabetes mellitus Migraines Mother Hypertension Sister Fall History of heart disease Grandfather Stroke Grandmother History of heart disease Grandfather History of heart disease Grandmother History of heart disease Social History marital status: number of children: 3 household members: spouse occupational status: unemployed Smoking Status: Never smoker alcohol intake: current caffeine: Yes Meds Home Medications and Allergies Home Medications Medication Instructions Recorded Confirmed Type cetirizine 10 mg tablet (Zyrtec) 10 mg PO DAILY PRN Allergy Symptoms 07/13/23 09/21/23 History cholecalciferol (vitamin D3) 1 tab PO DAILY 07/13/23 09/21/23 History labetalol 100 mg tablet 100 mg PO BID #180 tabs 07/13/23 09/21/23 Rx levothyroxine 88 mcg tablet 88 mcg PO DAILY #90 tabs 07/13/23 09/21/23 Rx liothyronine 5 mcg tablet (Cytomel) 5 mcg PO DAILY #90 tabs 07/13/23 09/21/23 Rx spironolactone 50 mg tablet 50 mg PO BID #180 tabs 07/19/23 09/21/23 Rx minoxidil 2.5 mg tablet 2.5 mg PO DAILY #90 tabs 09/14/23 09/21/23 Rx Allergies Allergy/AdvReac Type Severity Reaction Status Date / Time RONAN Inhibitors Allergy Severe flu like Verified 09/21/23 10:46 [RONAN INHIBITORS] sx, headaches, sore muscles ARB-Angiotensin Receptor Allergy Severe flu like Verified 09/21/23 10:46 Antagonist symptoms [ARB-ANGIOTENSIN RECEPTOR ANTAGONIST] codeine [CODEINE] Allergy Mild VOMITING Verified 09/21/23 10:46 oxycodone [OXYCODONE] Allergy Mild VOMITING Verified 09/21/23 10:46 Beta-Blockers Allergy Unknown nightmares Verified 09/21/23 10:46 (Beta-Adrenergic Bloc [BETA-BLOCKERS (BETA-ADRENERGIC BLOC] candesartan Allergy Verified 09/21/23 10:46 diphenhydramine Allergy Verified 09/21/23 10:46 guanfacine Allergy Verified 09/21/23 10:46 amlodipine AdvReac Mild Dizziness Verified 09/21/23 10:46 atenolol AdvReac Mild Dizziness Verified 09/21/23 10:46 diltiazem AdvReac Mild Dizziness Verified 09/21/23 10:46 fosinopril AdvReac Mild Dizziness Verified 09/21/23 10:46 lisinopril AdvReac Mild Dizziness Verified 09/21/23 10:46 metoprolol AdvReac Mild Dizziness Verified 09/21/23 10:46 nifedipine AdvReac Mild Dizziness Verified 09/21/23 10:46 propranolol AdvReac Mild Dizziness Verified 09/21/23 10:46 valsartan AdvReac Mild Dizziness Verified 09/21/23 10:46 Review of Systems Review of Systems Narrative: All else reviewed and otherwise unremarkable except as noted in history and physical. Exam Vital Signs (past 8 hours): - 09/21/23 10:38 09/21/23 10:41 09/21/23 10:41 Temperature 97.1 F L Pulse Rate 106 H 107 H Respiratory Rate 14 Blood Pressure 236/116 H 236/116 H Pulse Oximetry 99 98 Oxygen Delivery Method Room Air 09/21/23 10:58 09/21/23 11:00 09/21/23 11:30 Temperature Pulse Rate 104 H 102 H 94 H Respiratory Rate 22 Blood Pressure 236/116 H 249/109 H Pulse Oximetry 99 98 Oxygen Delivery Method Room Air 09/21/23 11:31 09/21/23 11:31 09/21/23 11:37 Temperature Pulse Rate 93 H 100 H Respiratory Rate Blood Pressure 249/109 H 249/109 H Pulse Oximetry 98 Oxygen Delivery Method 09/21/23 11:45 09/21/23 11:50 09/21/23 11:50 Temperature Pulse Rate 100 H 90 Respiratory Rate Blood Pressure 249/109 H 206/101 H Pulse Oximetry 97 Oxygen Delivery Method 09/21/23 11:51 09/21/23 11:51 09/21/23 11:52 Temperature Pulse Rate 87 Respiratory Rate Blood Pressure 199/86 H 217/98 H Pulse Oximetry 97 Oxygen Delivery Method 09/21/23 11:52 09/21/23 11:53 09/21/23 11:53 Temperature Pulse Rate 86 86 Respiratory Rate 48 H 40 H Blood Pressure 201/90 H Pulse Oximetry 97 96 Oxygen Delivery Method 09/21/23 11:54 09/21/23 11:54 09/21/23 11:55 Temperature Pulse Rate 86 85 Respiratory Rate 20 Blood Pressure 200/91 H Pulse Oximetry 96 99 Oxygen Delivery Method 09/21/23 11:55 09/21/23 12:00 09/21/23 12:00 Temperature Pulse Rate 85 Respiratory Rate Blood Pressure 199/94 H 177/74 H Pulse Oximetry 97 Oxygen Delivery Method 09/21/23 12:04 09/21/23 12:05 09/21/23 12:05 Temperature Pulse Rate 100 H 90 Respiratory Rate 22 Blood Pressure 199/94 H 167/72 H Pulse Oximetry 97 Oxygen Delivery Method 09/21/23 12:17 09/21/23 13:07 09/21/23 14:02 Temperature Pulse Rate Respiratory Rate Blood Pressure 167/72 H 238/108 H 231/109 H Pulse Oximetry Oxygen Delivery Method Oxygen Delivery Method Room Air Narrative Exam Narrative: NAD, fluent speech. Anxious. Normocephalic skull EOMI, symmetric pupils. Anicteric sclera. Oropharynx is unremarkable, no droop. Neck is supple, normal JVP, midline trachea no adenopathy. Lungs are clear, normal rate and effort. Heart is regular, no murmur gallop or rub. Abdomen is soft, nontender. Organomegaly is appreciated. Extremities are free of edema with good pedal and radial pulses. Skin is free of rash or lesions. Neurologically cranial nerves are intact grossly, motor strength is 5/5 in arms and legs. Joints are not deformed swollen. Objective Imaging Chest/Abdomen/ Pelvis CT: Radiologist's impression: IMPRESSION: 1. Gallbladder wall thickening, possibly indicating cholecystitis in the appropriate clinical setting. 2. Coronary artery disease. 3. No acute process involving the of the thoracoabdominal aorta. 4. Pancreatic tail mass. Nonemergent outpatient follow-up pancreatic protocol MRI is recommended for further assessment. 5. Hiatal hernia. 6. Bilateral renal scarring. 7. Normal appendix. CT scan - head: Radiologist's impression: No acute intracranial pathology. Chest x-ray: Radiologist's impression: No acute cardiopulmonary abnormality is seen. Labs 09/21/23 10:46 09/21/23 10:46 Labs: Laboratory Results - last 24 hr 09/21/23 09/21/23 09/21/23 10:46 12:35 12:55 WBC 23.6 H RBC 6.77 H Hgb 12.9 Hct 40.0 MCV 59.1 L MCH 19.0 L MCHC 32.1 RDW 17.1 H Plt Count 279 Neut % (Auto) Not Reportable Lymph % (Auto) Not Reportable [place] % (Auto) Not Reportable Eos % (Auto) Not Reportable Baso % (Auto) Not Reportable Lymph # (Auto) Not Reportable [place] # (Auto) Not Reportable Baso # (Auto) Not Reportable Total Counted 85 Seg Neutrophils % 87.1 H Lymphocytes % (Manual) 7.1 L Monocytes % (Manual) 5.9 Neutrophils # (Manual) 45718 H Platelet Estimate RBC Morphology See below Poikilocytosis 2+ H Anisocytosis 2+ H Microcytosis 2+ H Ovalocytes 1+ H PT 12.6 H INR 1.1 APTT 35 Sodium 136 L Potassium 3.7 Chloride 100 Carbon Dioxide 23 BUN 19 H Creatinine 0.75 Estimated GFR > 60 BUN/Creatinine Ratio 25.3 H Glucose 239 H Lactate 3.3 H Calcium 9.9 Total Bilirubin 1.7 H AST 46 H ALT 25 Alkaline Phosphatase 109 Total Creatine Kinase 591 H Troponin I 0.052 H 0.184 H* NT-Pro-B Natriuret Pep 3210 H Total Protein 8.5 H Albumin 4.8 Globulin 3.7 Albumin/Globulin Ratio 1.3 Lipase 130 Procalcitonin 0.08 Urine Color Yellow Urine Appearance Sl cloudy Urine pH 6.5 Ur Specific [place] 1.020 Urine Protein 2+ H Urine Glucose (UA) 1+ H Urine Ketones 1+ H Urine Occult Blood 2+ H Urine Nitrate Negative Urine Bilirubin Negative Urine Urobilinogen 0.2 Ur Leukocyte Esterase Negative Urine RBC 5-10/hpf H Urine WBC 1-5/hpf Ur Squamous Epith Cells 0-1 /hpf Urine Bacteria Many (>30) H Ur Culture Indicated? Specimen cultured Vol Urine Centrifuged 10ml (spun) 09/21/23 13:01 WBC RBC Hgb Hct MCV MCH MCHC RDW Plt Count Neut % (Auto) Lymph % (Auto) [place] % (Auto) Eos % (Auto) Baso % (Auto) Lymph # (Auto) [place] # (Auto) Baso # (Auto) Total Counted Seg Neutrophils % Lymphocytes % (Manual) Monocytes % (Manual) Neutrophils # (Manual) Platelet Estimate RBC Morphology Poikilocytosis Anisocytosis Microcytosis Ovalocytes PT INR APTT Sodium Potassium Chloride Carbon Dioxide BUN Creatinine Estimated GFR BUN/Creatinine Ratio Glucose Lactate 2.7 H Calcium Total Bilirubin AST ALT Alkaline Phosphatase Total Creatine Kinase Troponin I NT-Pro-B Natriuret Pep Total Protein Albumin Globulin Albumin/Globulin Ratio Lipase Procalcitonin Urine Color Urine Appearance Urine pH Ur Specific [place] Urine Protein Urine Glucose (UA) Urine Ketones Urine Occult Blood Urine Nitrate Urine Bilirubin Urine Urobilinogen Ur Leukocyte Esterase Urine RBC Urine WBC Ur Squamous Epith Cells Urine Bacteria Ur Culture Indicated? Vol Urine Centrifuged Assessment & Plan Assessment & Plan narrative: 1. Hypertensive urgency, present on admission and active. 2. Lactic acidosis, present on admission and active. Differential includes sepsis. 3. Elevated troponin consistent with demand ischemia, present on admission and active. The differential includes NSTEMI. 4. Elevated bilirubin, present on admission and active. 5. Hypothyroidism, present on admission and stable. 6. Thalassemia, present on admission stable. 7. Dementia, present on admission and stable. 8. Neuropathy following chemotherapy, present on admission and stable. 9. Hyperlipidemia, present on admission and active. Plan: -nicardipine drip f was stopped and she is more normotensive now. A question of whether or not she was taking her medications at home. We will continue her usual medications and simply monitor blood pressure at this point. -restart usual oral medications, likely will add a calcium channel gamaliel such as amlodipine or Cardizem pending clinical course. -trend troponin, ECG, 2D echo rule out wall motion abnormalities. -monitor WBC, fever or other indicators of infection. -gentle IV fluids for lactic acidosis. Patient is full resuscitation. Proxy decision maker is . Time Spent With Patient Time with patient: 30 to 49 minutes with 50% spent counseling/coordinating care Quality MIPS - Admit I confirm the patient?s Advance Care Plan is present, Code status is documented, Surrogate decision maker is in patient?s record [If Yes, STOP here]: Yes [facility] - Meds 'Current medications' to include all prescriptions, [id number] products, herbals, cannabis/cannabidiol products, and vitamin/mineral/dietary (nutritional) supplements. I have utilized all available resources to obtain, update, or review the patient?s current medications. [If Yes, STOP here]: Yes
[2023-09-21] MEDS: NICARDIPINE 25 MG in SODIUM CHLORIDE 0.9% 240 ML 50 MG IV (14:45)
[2023-09-21] MEDS: SODIUM CHLORIDE 0.9% 1,000 ML 75 ML IV (16:46)
[2023-09-21 16:51] LABS: Troponin I 0.476 ng/mL (0.01-0.034)
[2023-09-21 17:35] LABS: Lactate (Lactic Acid) 2.9 mmol/L (0.7-2.1)
[2023-09-21 17:44] LABS: PTT Partial Thromboplastin Tim 25 SECONDS (25.1-36.5)
[2023-09-21] MEDS: HEPARIN 5,000 UNIT/ML VIAL 3250 UNIT IV (17:44)
[2023-09-21] MEDS: ASPIRIN EC 81 MG TABLET PO (17:45)
[2023-09-21] MEDS: HEPARIN DRIP 25,000 UNIT/500 ML IV.SOLN 13.08 UNIT IV (17:46)
--- NOTE | 2023-09-21 18:50 | PC.NURSE ---
Rec'd pt to ICU w/ cardene drip off; b/p 142/63; pt is pleasantly confused, with a known diagnosis of dementia; to bedside and spoke w/ Dr Arnold; troponin continues to elevate; heparin bolus given and drip started at 12units/kg/hr; pt denies c/o chest pain or SOB; ASA 81mg po also given and EKG done
[2023-09-21 19:02] LABS: Reflexed Lactate in 2 Hours Y
[2023-09-21 19:36] LABS: Lactate 2HR (Lactic Acid Rflx) 2.2 mmol/L (0.7-2.1)
[2023-09-21] MEDS: SPIRONOLACTONE 25 MG TABLET PO (20:45)
[2023-09-21 23:50] LABS: PTT Partial Thromboplastin Tim 81 SECONDS (25.1-36.5)
[2023-09-22] VITALS (55 sets, daily range): BP systolic 127–238; BP diastolic 60–169; PULSE 70–103; RESP 17–45; TEMP 36.1–37.1; O2SAT 95–99
[2023-09-22] MEDS: ACETAMINOPHEN 325 MG TABLET 650 MG PO ×2 (03:16→17:18)
[2023-09-22 06:26] LABS: PTT Partial Thromboplastin Tim 61 SECONDS (25.1-36.5)
[2023-09-22 06:31] LABS: Add Manual Diff / Slide Review NO; Basophils Absolute Auto 100 /uL (0-100); Basophils Percent Auto 0.6 % (0-2); Eosinophils Absolute Auto 0 /uL (0-450); Hematocrit 31.5 % (36-46); Hemoglobin 10.2 g/dL (12.0-16.0); Lymphocytes Absolute Auto 1300 /uL (1100-4500); Lymphocytes Percent Auto 9.2 % (25-40); Mean Corpuscular HGB Conc 32.4 % (30-36); Mean Corpuscular Hemoglobin 18.9 PG (26-34); Mean Corpuscular Volume 58.4 fL (80-100); Monocytes Absolute Auto 1200 /uL (0-900); Monocytes Percent Auto 8.2 % (3-14); Neutrophils Absolute Auto 11500 /uL (1500-7000); Platelet Count 188 X10^3/uL (150-400); Red Blood Cell Count 5.39 X10^6/uL (4.0-5.2); Red Cell Distribution Width 17.4 % (11.6-14.8)
[2023-09-22 06:39] LABS: Blood Urea Nitrogen 18 mg/dL (7-17); Calcium 8.7 mg/dL (8.4-10.2); Carbon Dioxide 25 mmol/L (22-32); Chloride 105 mmol/L (98-107); Estimated Glomerular Filt Rate > 60 mL/min (>60); Glucose 120 mg/dL (80-110); HEMOLYSIS < 15 (0-50); Potassium 3.6 mmol/L (3.4-5.1); Sodium 137 mmol/L (137-145)
[2023-09-22] MEDS: LIOTHYRONINE 5 MCG TABLET PO (06:42)
[2023-09-22] MEDS: SODIUM CHLORIDE 0.9% 1,000 ML 75 ML IV (06:43)
[2023-09-22] MEDS: LEVOTHYROXINE 88 MCG TABLET PO (06:43)
[2023-09-22 06:49] LABS: Anisocytosis 2+; Microcytosis 2+; Ovalocytes 1+; Platelet Estimate Adequate on smear; Poikilocytosis 1+; Schistocytes 1+
[2023-09-22 08:25] LABS: Cholesterol 142 mg/dL (140-199); HDL Cholesterol 40 mg/dL (40-60); LDL Cholesterol Calculated 68 mg/dL (<100); Triglycerides 170 mg/dL (35-150)
[2023-09-22 08:26] LABS: Magnesium 2.1 mg/dL (1.6-2.3)
[2023-09-22 08:28] LABS: Hemoglobin A1C% w Est Avg Glu 5.7 % (4.0-6.0)
[2023-09-22 08:42] LABS: Troponin I 0.533 ng/mL (0.01-0.034)
[2023-09-22] MEDS: LABETALOL 100 MG TABLET PO ×2 (08:59→20:00)
[2023-09-22] MEDS: SPIRONOLACTONE 25 MG TABLET PO ×2 (08:59→20:00)
[2023-09-22] MEDS: ASPIRIN EC 81 MG TABLET PO (09:00)
[2023-09-22] MEDS: POTASSIUM CHLORIDE 20 MEQ TAB 40 MEQ PO (09:00)
[2023-09-22] MEDS: AMLODIPINE 5 MG TABLET 2.5 MG PO (09:00)
--- NOTE | 2023-09-22 09:00 | DI.ECHO.S_ITS ---
[facility]---------+ [facility] +---------+ : : [address] : : : : [id number] : : : : Phone: [phone]+ Echocardiogram Report + + :Name: SOTERO RODRIGUEZ Study Date: 09/22/2023 Height: 63 in : :[facility] ReadingLocation: Weight: 120 lb : : Gender: Female BSA: 1.6 m2 : :: 1945 Age: 78 yrs BP: 135/91 mmHg: :Reason For Study: ELEVATED TROPONIN : :Ordering Physician: EUNICE, : :CAMDEN Hutchinson Performed By: Chichi Hernandez : :Referring: CAMDEN DAWSON : + + Interpretation Summary The ejection fraction is estimated to be 60-65%. There is mild mitral regurgitation. The ascending aorta is mildly enlarged. Procedure: A two-dimensional transthoracic echocardiogram with color flow and Doppler was performed. The study quality was technically adequate. Comparison is made with the echocardiogram of 06/12/2019. The patient was in sinus rhythm with heart rates between 66-74 bpm during the exam. Left Ventricle: Proximal septal thickening is noted. The left ventricle is normal in size. The ejection fraction is estimated to be 60-65%. Left ventricular wall motion is normal. Right Ventricle: The right ventricle is normal in size and function. Atria: The left atrial size is normal. Right atrial size is normal. There is no Doppler evidence for an interatrial shunt. Mitral Valve: The mitral valve is normal in structure and function. There is mild mitral regurgitation. Aortic Valve: The aortic valve is trileaflet. The aortic valve opens well. The aortic valve is slightly calcified. There is no aortic valve stenosis. No aortic regurgitation is present. Tricuspid Valve: The tricuspid valve is normal in structure and function. There is trace tricuspid regurgitation. Pulmonic Valve: The pulmonic valve leaflets are thin and pliable; valve motion is normal. There is no pulmonic valvular regurgitation. Great Vessels: The aortic root is normal size. The ascending aorta is mildly enlarged. The IVC is of normal diameter and collapses greater than 50% with a sniff. This suggests a low right atrial pressure of 3 mm Hg. Pericardium/ Pleura There is no pericardial effusion. There is no pleural effusion. MMode/2D Measurements & Calculations LVIDd: 4.6 cm LVOT diam: 2.0 cm LVIDs: 2.6 cm Ao root diam: 3.0 cm FS: 42.1 % asc Aorta Diam: 3.9 cm EPSS: 0.32 cm Ao Arch Diam (Prox Trans): 2.3 cm IVSd: 0.72 cm LVPWd: 0.96 cm LV adkins. diameter/BSA (cm/m^2): 2.9 LV sys. diameter/BSA (cm/m^2): 1.7 LA A2 area: 18.5 cm2 RA long axis: 3.6 cm LA A4 area: 14.9 cm2 RA area: 8.2 cm2 LA length (vol): 4.6 cm RA vol: 15.9 ml LA vol: 50.7 ml RA : 10.2 ml/m2 LA vol index: 32.5 ml/m2 IVC diam: 1.3 cm RVD1 (basal): 2.5 cm RVD2 (mid): 2.1 cm TAPSE: 2.0 cm Doppler Measurements & Calculations Ao V2 max: 175.3 cm/sec LVOT Max Bradly: 123.6 cm/sec Ao V2 mean: 126.6 cm/sec LV V1 max P.1 mmHg Ao max P.3 mmHg LV V1 VTI: 25.7 cm Ao mean P.1 mmHg HUNTER(I,D): 2.2 cm2 Ao V2 VTI: 35.6 cm HUNTER(V,D): 2.1 cm2 sev ratio: 0.72 HUNTER indexed to BSA (cm^2/m^2): 1.4 MV E max bradly: 79.8 cm/sec PA V2 max: 98.2 cm/sec MV A max bradly: 90.9 cm/sec PA V2 mean: 70.9 cm/sec MV E/A: 0.88 PA mean P.2 mmHg Med Peak E' Bradly: 4.8 cm/sec PA pr(Accel): 29.3 mmHg E/E' med: 16.7 Lat Peak E' Bradly: 6.0 cm/sec E/E' lat: 13.3 E/e' average: 15.0 MV dec time: 0.18 sec SV(LVOT): 77.7 ml Reading Physician:10:24 AM
--- NOTE | 2023-09-22 10:15 | PT-IP ANOTE ---
PT order received. In rounds, communicates that pt is still on heparin drip and pt's systolic BP is running 195 mmHg. Will hold therapy today and con't efforts a later date.
[2023-09-22 12:18] LABS: PTT Partial Thromboplastin Tim 50 SECONDS (25.1-36.5)
[2023-09-22 12:33] LABS: Troponin I 0.391 ng/mL (0.01-0.034)
[2023-09-22] MEDS: MINOXIDIL 5 MG 5 EACH PO (13:03)
--- NOTE | 2023-09-22 13:08 | P.PN_ITS ---
Subjective Subjective Interval history: Patient's BP still high at 190. was interested in restarting clonidine. Spoke with Dr. Thomas her PCP who preferred to increase minoxidil first and monitor for efficacy. Echo returned and no WMA. Exam Vital Signs (past 8 hours): - 09/22/23 06:00 09/22/23 06:00 09/22/23 07:00 Temperature Pulse Rate 80 Respiratory Rate 29 H Blood Pressure 135/91 H 131/62 Pulse Oximetry 95 Oxygen Flow Rate 0 09/22/23 07:00 09/22/23 08:00 09/22/23 08:01 Temperature Pulse Rate 71 78 Respiratory Rate 29 H 26 H Blood Pressure 156/70 H Pulse Oximetry 98 98 Oxygen Flow Rate 09/22/23 08:01 09/22/23 08:59 09/22/23 09:00 Temperature 97 F L Pulse Rate 74 74 Respiratory Rate 27 H Blood Pressure 156/70 H 193/79 H Pulse Oximetry 98 Oxygen Flow Rate 09/22/23 09:00 09/22/23 09:23 09/22/23 09:23 Temperature Pulse Rate 77 83 Respiratory Rate 32 H 30 H Blood Pressure 179/79 H Pulse Oximetry 98 99 Oxygen Flow Rate 09/22/23 10:00 09/22/23 10:00 09/22/23 10:00 Temperature Pulse Rate 79 79 Respiratory Rate 30 H Blood Pressure 153/74 H 153/74 H Pulse Oximetry 98 Oxygen Flow Rate 09/22/23 11:00 09/22/23 11:00 09/22/23 12:00 Temperature Pulse Rate 79 Respiratory Rate 27 H Blood Pressure 162/70 H 157/70 H Pulse Oximetry 97 Oxygen Flow Rate 09/22/23 12:00 Temperature Pulse Rate 79 Respiratory Rate 27 H Blood Pressure Pulse Oximetry 98 Oxygen Flow Rate Oxygen Delivery Method Room Air Oxygen Flow Rate 0 Narrative Exam Narrative: NAD, fluent speech. Mildly confused. AOx2 Normocephalic skull EOMI, symmetric pupils. Anicteric sclera. Oropharynx is unremarkable, no droop. Neck is supple, normal JVP, midline trachea no adenopathy. Lungs are clear, normal rate and effort. Heart is regular, no murmur gallop or rub. Abdomen is soft, nontender. Organomegaly is appreciated. Extremities are free of edema with good pedal and radial pulses. Skin is free of rash or lesions. Neurologically cranial nerves are intact grossly, motor strength is 5/5 in arms and legs. Joints are not deformed swollen. Objective Labs 09/22/23 06:10 09/22/23 06:10 Labs: Laboratory Results - last 24 hr 09/21/23 09/21/23 09/21/23 12:55 13:01 16:17 WBC RBC Hgb Hct MCV MCH MCHC RDW Plt Count Neut % (Auto) Lymph % (Auto) [place] % (Auto) Eos % (Auto) Baso % (Auto) Neut # (Auto) Lymph # (Auto) [place] # (Auto) Eos # (Auto) Baso # (Auto) Platelet Estimate RBC Morphology Poikilocytosis Anisocytosis Microcytosis Ovalocytes Schistocytes APTT Sodium Potassium Chloride Carbon Dioxide BUN Creatinine Estimated GFR BUN/Creatinine Ratio Glucose Hemoglobin A1c Lactate 2.7 H Calcium Magnesium Troponin I 0.184 H* 0.476 H* Triglycerides Cholesterol LDL Cholesterol, Calc HDL Cholesterol 09/21/23 09/21/23 09/21/23 17:17 17:28 19:17 WBC RBC Hgb Hct MCV MCH MCHC RDW Plt Count Neut % (Auto) Lymph % (Auto) [place] % (Auto) Eos % (Auto) Baso % (Auto) Neut # (Auto) Lymph # (Auto) [place] # (Auto) Eos # (Auto) Baso # (Auto) Platelet Estimate RBC Morphology Poikilocytosis Anisocytosis Microcytosis Ovalocytes Schistocytes APTT 25 L D Sodium Potassium Chloride Carbon Dioxide BUN Creatinine Estimated GFR BUN/Creatinine Ratio Glucose Hemoglobin A1c Lactate 2.9 H 2.2 H Calcium Magnesium Troponin I Triglycerides Cholesterol LDL Cholesterol, Calc HDL Cholesterol 09/21/23 09/22/23 09/22/23 23:16 06:10 11:59 WBC 14.0 H RBC 5.39 H Hgb 10.2 L Hct 31.5 L MCV 58.4 L MCH 18.9 L MCHC 32.4 RDW 17.4 H Plt Count 188 Neut % (Auto) 82.0 H Lymph % (Auto) 9.2 L [place] % (Auto) 8.2 Eos % (Auto) 0.0 L Baso % (Auto) 0.6 Neut # (Auto) 15172 H Lymph # (Auto) 1300 [place] # (Auto) 1200 H Eos # (Auto) 0 Baso # (Auto) 100 Platelet Estimate Adequate on smear RBC Morphology See below Poikilocytosis 1+ H Anisocytosis 2+ H Microcytosis 2+ H Ovalocytes 1+ H Schistocytes 1+ H APTT 81 H* D 61 H D 50 H D Sodium 137 Potassium 3.6 Chloride 105 Carbon Dioxide 25 BUN 18 H Creatinine 0.75 Estimated GFR > 60 BUN/Creatinine Ratio 24.0 H Glucose 120 H D Hemoglobin A1c 5.7 Lactate Calcium 8.7 Magnesium 2.1 Troponin I 0.533 H* 0.391 H* Triglycerides 170 H Cholesterol 142 LDL Cholesterol, Calc 68 HDL Cholesterol 40 PFSH Medical History Mumps Measles Chicken pox Thalassemia Dementia Polyneuropathy following chemotherapy History of breast cancer History of endometrial cancer Acquired hypothyroidism Mixed hyperlipidemia Essential hypertension (~1986) Urinary incontinence without sensory awareness Urge incontinence Pelvic pain in female Lower urinary tract symptoms (LUTS) Postmenopausal atrophic vaginitis Thyroid disease Osteoporosis Hx of migraine headaches Anemia Breast cancer (~2017) Surgical History Anesthesia Status post hysterectomy (08/02/12) Status post parathyroidectomy Status post surgery (06/09/12) Family History Sister Cancer Kidney stones Father Diabetes mellitus Migraines Mother Hypertension Sister Fall History of heart disease Grandfather Stroke Grandmother History of heart disease Grandfather History of heart disease Grandmother History of heart disease Social History marital status: number of children: 3 household members: spouse occupational status: unemployed Smoking Status: Never smoker alcohol intake: current caffeine: Yes Assessment & Plan Assessment & Plan narrative: 1. Hypertensive emergency, present on admission and active. 2. Lactic acidemia, present on admission and resolved with IVF. 3. Elevated troponin consistent with demand ischemia, present on admission and active. The differential includes NSTEMI so will treat with heparin drip [id number]. Echo reassuring. 4. Elevated bilirubin, present on admission and active. 5. Hypothyroidism, present on admission and stable. 6. Thalassemia, present on admission stable. 7. Dementia, present on admission and stable. 8. Neuropathy following chemotherapy, present on admission and stable. 9. Hyperlipidemia, present on admission and active. Plan: -nicardipine drip now stopped. A question of whether or not she was taking her medications at home. We will continue her usual medications and monitor blood pressure at this point. -restarted home BP meds. Increased minoxidil after speaking with PCP Dr. Thomas who would rather try higher doses then switching back to clonidine. -trend troponin, ECG, 2D echo done without WMA and EF 60-65% -monitor WBC, fever or other indicators of infection. -continue heparin drip x48 hours to finish on 09/23 Patient is full resuscitation. Proxy decision maker is . Dispo: Home on 09/23. Time Spent With Patient Time with patient: 30 to 49 minutes with 50% spent counseling/coordinating care Quality VTE Deep Vein Thrombosis/Pulmonary Embolism Present on Admission: No
--- NOTE | 2023-09-22 14:30 | CM.DANOTE ---
Initial DCP Assessment Note Pt is an 78 yo female, resident [facility], admitted with hypertensive emergency PCP: Dong Thomas Payer: [facility] [employer] Reviewed chart, met w/patient and spouse, introduced self and role. Spouse provides history, patient is very pleasant, smiles, does not speak throughout this visit. Spouse reports that patient is aware she has had memory changes. 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 Patient remains functionally independent and can perform most ADLs indp. Spouse drives, assists with errands, shopping, planning, cooking and cleaning. Patient/spouse have two [place] Spouse reports having neighbors and friends that are also caring for their spouses who have dementia and he can reach out for support, ideas and resources as needed. Spouse appreciative for the visit and denies needs from this CM team currently. No barriers identified at this time to patient's safe discharge home w/spouse and friend to assist as needed; close outpatient f/u recommended. CM team will plan to follow closely in case any DC needs or concerns arise. GEMMA De Guzman Discharge Planning/Care Management CM Discharge Assessment Start: 09/22/23 14:26 Freq: Status: Active Protocol: Document 09/22/23 14:26 PAYAL (Rec: 09/22/23 14:30 PAYAL [id number]) Discharge Planning Assessment Assigned Buying Intern GEMMA Shannon DPOA/Assigned Designee Name Christopher Pederson, spouse Contact Information [phone], home [phone], cell Advance Directives? No History Provided By Significant Other,Medical Record Prior Living Arrangements House Household Members spouse Type of transporation used prior to Relies on Others admit Independent with ADL's Yes: Needs monitoring r/t dementia, functionally indp Is patient alert and oriented? No: Dementia Needs Assistance With Managing Medications,Home Chores / Shopping Barriers to Discharge No Comment Home w/spouse Discharge Plan Home Transportation Arrangement Spouse Referrals Initiated None needed Whiteboard Updated in Patient Room with Yes name and ext. # of Buying Intern
--- NOTE | 2023-09-22 18:09 | PC.NURSE ---
Addendum entered by Shalonda Scott R.N. 09/22/23 19:32: MD Arias ordered IV Labetelol for SBP >180 at 1800. Rechecked BP - SBP >200. Gave 2 doses of IV labetelol within 10 in of each other. BP not decreasing significantly. Pt is nauseous and has headache. MD Arias made aware. He ordered IV hydralazine - given. Pt unable to take the PO BP medication ordered for 1829 due to intense nausea. RN Dana watching telemetry while this RN gave IV BP meds. Report given to ICU NOC nurse Braydon who assumed care at 191. Original Note: Day shift: Notified MD Arias of BP 182/80. HR 93. stated no action needed at this time. Recheck 1 hour later, BP 187/88. Will plan to give IV labetelol for SBP >190 per orders. Will continue to monitor.
[2023-09-22 18:28] LABS: PTT Partial Thromboplastin Tim 52 SECONDS (25.1-36.5)
[2023-09-22] MEDS: ONDANSETRON 4 MG/2 ML INJ IV (18:38)
[2023-09-22] MEDS: LABETALOL 20 MG/4 ML SYRINGE 10 MG IV ×5 (18:41→22:02)
[2023-09-22] MEDS: HYDRALAZINE 20 MG/ML VIAL 10 MG IV (19:16)
[2023-09-22] MEDS: METOCLOPRAMIDE 10 MG/2 ML INJ IV (19:42)
[2023-09-22] MEDS: AMLODIPINE 5 MG TABLET PO (19:58)
[2023-09-23] VITALS (26 sets, daily range): BP systolic 123–228; BP diastolic 58–122; PULSE 14–109; RESP 13–106; TEMP 36.1–37.1; O2SAT 92–98
[2023-09-23 00:58] LABS: PTT Partial Thromboplastin Tim 48 SECONDS (25.1-36.5)
[2023-09-23] MEDS: LABETALOL 20 MG/4 ML SYRINGE 10 MG IV ×3 (02:08→05:08)
[2023-09-23] MEDS: LEVOTHYROXINE 88 MCG TABLET PO (06:01)
[2023-09-23] MEDS: LIOTHYRONINE 5 MCG TABLET PO (06:01)
[2023-09-23 06:25] LABS: Add Manual Diff / Slide Review NO; Basophils Absolute Auto 100 /uL (0-100); Basophils Percent Auto 0.7 % (0-2); Eosinophils Absolute Auto 0 /uL (0-450); Hematocrit 34.6 % (36-46); Hemoglobin 11.4 g/dL (12.0-16.0); Lymphocytes Absolute Auto 1200 /uL (1100-4500); Lymphocytes Percent Auto 7.6 % (25-40); Mean Corpuscular HGB Conc 33.1 % (30-36); Mean Corpuscular Hemoglobin 19.2 PG (26-34); Mean Corpuscular Volume 58.1 fL (80-100); Monocytes Absolute Auto 900 /uL (0-900); Monocytes Percent Auto 5.8 % (3-14); Neutrophils Absolute Auto 13400 /uL (1500-7000); Neutrophils Percent Auto 85.9 % (50-75); Platelet Count 182 X10^3/uL (150-400); Red Blood Cell Count 5.96 X10^6/uL (4.0-5.2); Red Cell Distribution Width 17.2 % (11.6-14.8); White Blood Cell Count 15.6 X10^3/uL (4.5-11.0)
[2023-09-23 06:35] LABS: PTT Partial Thromboplastin Tim 53 SECONDS (25.1-36.5)
[2023-09-23 06:36] LABS: BUN Creatinine Ratio 23.3 (6-22); Blood Urea Nitrogen 14 mg/dL (7-17); Calcium 9.2 mg/dL (8.4-10.2); Carbon Dioxide 22 mmol/L (22-32); Chloride 102 mmol/L (98-107); Estimated Glomerular Filt Rate > 60 mL/min (>60); Glucose 146 mg/dL (80-110); HEMOLYSIS < 15 (0-50); Potassium 3.4 mmol/L (3.4-5.1); Sodium 133 mmol/L (137-145)
--- NOTE | 2023-09-23 06:48 | PC.NURSE ---
PTT 53, continue with current Heparin drip at 704 units/hour, next PTT at 12 noon.
[2023-09-23] MEDS: HEPARIN DRIP 25,000 UNIT/500 ML IV.SOLN 14.1 UNIT IV (06:58)
[2023-09-23 07:06] LABS: Ovalocytes 1+; Schistocytes 1+
[2023-09-23 07:07] LABS: Anisocytosis 2+; Microcytosis 2+
--- NOTE | 2023-09-23 07:26 | DI.US.S_ITS ---
PROCEDURE: US ABDOMEN LIMITED INDICATIONS: assess gallbladder TECHNIQUE: Real-time focused scanning was performed of the abdomen, with image documentation. COMPARISON: [facility], CT, CT ANGIO CHEST ABDOMEN PELVIS, 09/21/2023, 12:13. FINDINGS: Liver is of mildly increased echogenicity without focal liver mass. There is gallbladder sludge. No gallstones. The gallbladder is somewhat distended. No gallbladder wall thickening. No dilated ducts. Common bile duct measures 4.7 mm. The pancreas is not visualized secondary to there is a 2.5 cm pancreatic tail mass on the very recent previous CT. IMPRESSION: 1. No evidence of gallstone disease. 2. Known 2.5 cm pancreatic tail mass, recently noted, not seen on today's ultrasound secondary to overlying bowel gas. Comment: Recommend nonemergent pancreas protocol MRI with and without contrast. Dictated by: Dusty Pan M.D. on 09/23/2023 at 8:46 Approved by: Dusty Pan M.D. on 09/23/2023 at 8:51
[2023-09-23 07:54] LABS: Alanine Aminotransferase 40 IU/L (<35); Albumin 4.2 g/dL (3.5-5.0); Albumin Globulin Ratio 1.4 (1.0-2.8); Alkaline Phosphatase 86 U/L (38-126); Aspartate Aminotransferase 75 IU/L (14-36); Bilirubin Total 1.2 mg/dL (0.2-1.3); HEMOLYSIS < 15 (0-50); Total Protein 7.2 g/dL (6.3-8.2)
[2023-09-23] MEDS: PIPERACILLIN/TAZO 4.5 GM in SODIUM CHLORIDE 0.9% 100 ML IV (08:00)
[2023-09-23] MEDS: METOCLOPRAMIDE 10 MG/2 ML INJ IV (08:01)
[2023-09-23] MEDS: HYDRALAZINE 20 MG/ML VIAL 10 MG IV ×2 (08:03→20:26)
[2023-09-23 08:11] LABS: Procalcitonin 0.12 ng/mL (<0.5)
--- NOTE | 2023-09-23 08:57 | DI.NM.S_ITS ---
PROCEDURE: NM HIDA WITH CCK PHARMACEUTICAL: 5.5 mCi Tc-99m mebrofenin IV; 1.1 mcg CCK IV. INDICATIONS: distended gallbladder, elevated LFT's, NV TECHNIQUE: Following intravenous administration of Tc-99m mebrofenin, sequential anterior abdominal images were obtained. To evaluate the contractile response of the gallbladder in response to Cholecystokinin (CCK), sincalide (0.02 ?g/kg) was administered by slow intravenous infusion approximately 60 minutes after the administration of the radiopharmaceutical. Sequential imaging was continued for 30 minutes after the start of CCK infusion. Gallbladder ejection fraction was calculated. COMPARISON: [facility], ABDOMEN LIMITED, 09/23/2023, 8:17. FINDINGS: Biliary scan: There is normal tracer uptake and excretion by the liver. There is normal visualization of the intrahepatic ducts, common bile duct, and gallbladder. There is normal tracer transit into the duodenum. CCK stimulation: There is abnormal contractile response of the gallbladder to CCK infusion. The calculated gallbladder ejection fraction is 0% ; normal values are above 35%. IMPRESSION: The cystic duct is patent. There is abnormal gallbladder ejection following CCK administration, suggestive of functional gallbladder disorder. Dictated by: Feliberto Henderson M.D. on 09/23/2023 at 11:53 Approved by: Feliberto Henderson M.D. on 09/23/2023 at 12:07
[2023-09-23] MEDS: MINOXIDIL 5 MG 5 EACH PO (08:58)
[2023-09-23] MEDS: AMLODIPINE 5 MG TABLET PO (08:59)
[2023-09-23] MEDS: CHLORTHALIDONE 25 MG TABLET 12.5 MG PO (08:59)
[2023-09-23] MEDS: LABETALOL 100 MG TABLET PO ×2 (08:59→19:46)
[2023-09-23] MEDS: SPIRONOLACTONE 25 MG TABLET PO ×2 (09:00→19:47)
[2023-09-23] MEDS: POTASSIUM CHLORIDE 20 MEQ TAB 40 MEQ PO (12:07)
[2023-09-23] MEDS: PIPERACILLIN/TAZO 3.375 GM in SODIUM CHLORIDE 0.9% 100 ML IV ×2 (12:07→19:47)
[2023-09-23 12:25] LABS: PTT Partial Thromboplastin Tim 31 SECONDS (25.1-36.5)
--- NOTE | 2023-09-23 13:02 | P.PN_ITS ---
Subjective Subjective Interval history: Patient's BP improved today to 160 but received several doses of IV labetalol overnight. WBC and LFT's elevated so abd US done which showed no cholecysititis. HIDA ordered. Exam Vital Signs (past 8 hours): - 09/23/23 05:08 09/23/23 05:10 09/23/23 05:39 Temperature Pulse Rate 91 H 91 H 93 H Respiratory Rate Blood Pressure 208/84 H 208/84 H 178/76 H Pulse Oximetry Oxygen Delivery Method Oxygen Flow Rate 09/23/23 07:00 09/23/23 08:00 09/23/23 08:03 Temperature 98.1 F Pulse Rate 97 H Respiratory Rate 20 Blood Pressure 209/92 H 196/85 H Pulse Oximetry 92 Oxygen Delivery Method Room Air Oxygen Flow Rate 0 09/23/23 08:59 09/23/23 09:00 09/23/23 09:29 Temperature Pulse Rate 104 H 104 H 88 Respiratory Rate Blood Pressure 158/74 H 158/74 H 158/74 H Pulse Oximetry Oxygen Delivery Method Oxygen Flow Rate 09/23/23 12:00 Temperature 98.2 F Pulse Rate 97 H Respiratory Rate 35 H Blood Pressure 178/77 H Pulse Oximetry 97 Oxygen Delivery Method Oxygen Flow Rate 0 Oxygen Delivery Method Room Air Oxygen Flow Rate 0 Narrative Exam Narrative: NAD, fluent speech. Mildly confused. AOx2 Normocephalic skull EOMI, symmetric pupils. Anicteric sclera. Oropharynx is unremarkable, no droop. Neck is supple, normal JVP, midline trachea no adenopathy. Lungs are clear, normal rate and effort. Heart is regular, no murmur gallop or rub. Abdomen is soft, nontender. Organomegaly is appreciated. Extremities are free of edema with good pedal and radial pulses. Skin is free of rash or lesions. Neurologically cranial nerves are intact grossly, motor strength is 5/5 in arms and legs. Joints are not deformed swollen. Objective Labs 09/23/23 06:10 09/23/23 06:10 Labs: Laboratory Results - last 24 hr 09/22/23 09/23/23 09/23/23 18:10 00:28 06:10 WBC 15.6 H RBC 5.96 H Hgb 11.4 L Hct 34.6 L MCV 58.1 L MCH 19.2 L MCHC 33.1 RDW 17.2 H Plt Count 182 Neut % (Auto) 85.9 H Lymph % (Auto) 7.6 L [place] % (Auto) 5.8 Eos % (Auto) 0.0 L Baso % (Auto) 0.7 Neut # (Auto) 47823 H Lymph # (Auto) 1200 [place] # (Auto) 900 Eos # (Auto) 0 Baso # (Auto) 100 RBC Morphology See below Anisocytosis 2+ H Microcytosis 2+ H Ovalocytes 1+ H Schistocytes 1+ H APTT 52 H 48 H 53 H Sodium 133 L Potassium 3.4 Chloride 102 Carbon Dioxide 22 BUN 14 Creatinine 0.60 Estimated GFR > 60 BUN/Creatinine Ratio 23.3 H Glucose 146 H Calcium 9.2 Total Bilirubin 1.2 Conjugated Bilirubin 0.0 Unconjugated Bilirubin 1.0 AST 75 H ALT 40 H Alkaline Phosphatase 86 Total Protein 7.2 Albumin 4.2 Globulin 3.0 Albumin/Globulin Ratio 1.4 Procalcitonin 0.12 09/23/23 12:02 WBC RBC Hgb Hct MCV MCH MCHC RDW Plt Count Neut % (Auto) Lymph % (Auto) [place] % (Auto) Eos % (Auto) Baso % (Auto) Neut # (Auto) Lymph # (Auto) [place] # (Auto) Eos # (Auto) Baso # (Auto) RBC Morphology Anisocytosis Microcytosis Ovalocytes Schistocytes APTT 31 D Sodium Potassium Chloride Carbon Dioxide BUN Creatinine Estimated GFR BUN/Creatinine Ratio Glucose Calcium Total Bilirubin Conjugated Bilirubin Unconjugated Bilirubin AST ALT Alkaline Phosphatase Total Protein Albumin Globulin Albumin/Globulin Ratio Procalcitonin [facility] Medical History Mumps Measles Chicken pox Thalassemia Dementia Polyneuropathy following chemotherapy History of breast cancer History of endometrial cancer Acquired hypothyroidism Mixed hyperlipidemia Essential hypertension (~1986) Urinary incontinence without sensory awareness Urge incontinence Pelvic pain in female Lower urinary tract symptoms (LUTS) Postmenopausal atrophic vaginitis Thyroid disease Osteoporosis Hx of migraine headaches Anemia Breast cancer (~2017) Surgical History Anesthesia Status post hysterectomy (08/02/12) Status post parathyroidectomy Status post surgery (06/09/12) Family History Sister Cancer Kidney stones Father Diabetes mellitus Migraines Mother Hypertension Sister Fall History of heart disease Grandfather Stroke Grandmother History of heart disease Grandfather History of heart disease Grandmother History of heart disease Social History marital status: number of children: 3 household members: spouse occupational status: unemployed Smoking Status: Never smoker alcohol intake: current caffeine: Yes Assessment & Plan Assessment & Plan narrative: 1. Hypertensive emergency, present on admission and active. 2. Lactic acidemia, present on admission and resolved with IVF. 3. Elevated troponin consistent with demand ischemia, present on admission and active. Finished 24 hours of heparin drip. Echo reassuring. 4. Acalculous cholecystitis, present on admission and active. 5. Hypothyroidism, present on admission and stable. 6. Thalassemia, present on admission stable. 7. Dementia, present on admission and stable. 8. Neuropathy following chemotherapy, present on admission and stable. 9. Hyperlipidemia, present on admission and active. 10. UTI, poa Plan: -nicardipine drip on in ED then stopped on HD1 -restarted home BP meds. Increased minoxidil after speaking with PCP Dr. Thomas who would rather try higher doses then switching back to clonidine. -added amlodipine and chlorthalidone -troponin peaked at 0.5 and now downtrending, EKG without ST changes, 2D echo done without WMA and EF 60-65% -HIDA c/w acalculous cholecystitis and gallbladder EF of 0% -start Zosyn for UTI and cholecystitis, urine culture with pansensitive E. coli -Dr. Dooley gen surg consulted for lap nathan Patient is full resuscitation. Proxy decision maker is . Dispo: Pending possible lab nathan. 1-2 days. Time Spent With Patient Time with patient: 30 to 49 minutes with 50% spent counseling/coordinating care Quality VTE Deep Vein Thrombosis/Pulmonary Embolism Present on Admission: No
--- NOTE | 2023-09-23 18:10 | P.CONS_ITS ---
History of Present Illness Consult details Date Patient Seen: 09/23/23 Time Patient Seen: 18:10 Chief complaint: bp spiking over 200 over night /vomitting Narrative: 78 y.o woman PMH dementia, HTN presented to the [facility] Emergency Department September 21, 2023 with emesis and severe hypertension. At admission BP 250/120, WBC 23, mild transaminitis. CT abdomen pelvis notable only for gallbladder wall thickening and pericholecystic fluid. Her blood pressure has been controlled she initially required nicardipine drip and she is been weaned to oral agents. Leukocytosis has improved but not resolved today remains at 15 with left shift. Further imaging today notable for normal abdominal ultrasound and HIDA scan which shows filling of the gallbladder with a 0% ejection fraction. She continues to be nauseous and has discomfort in her epigastric region. Consulted for possible cholecystitis. Prior abdominal surgery includes robotic hysterectomy. Meds Home Medications and Allergies Home Medications Medication Instructions Recorded Confirmed Type cetirizine 10 mg tablet (Zyrtec) 10 mg PO DAILY PRN Allergy Symptoms 07/13/23 09/21/23 History cholecalciferol (vitamin D3) 1 tab PO DAILY 07/13/23 09/21/23 History labetalol 100 mg tablet 100 mg PO BID #180 tabs 07/13/23 09/21/23 Rx levothyroxine 88 mcg tablet 88 mcg PO DAILY #90 tabs 07/13/23 09/21/23 Rx liothyronine 5 mcg tablet (Cytomel) 5 mcg PO DAILY #90 tabs 07/13/23 09/21/23 Rx spironolactone 50 mg tablet 50 mg PO BID #180 tabs 07/19/23 09/21/23 Rx minoxidil 2.5 mg tablet 2.5 mg PO DAILY #90 tabs 09/14/23 09/21/23 Rx Allergies Allergy/AdvReac Type Severity Reaction Status Date / Time RONAN Inhibitors Allergy Severe flu like Verified 09/21/23 10:46 [RONAN INHIBITORS] sx, headaches, sore muscles ARB-Angiotensin Receptor Allergy Severe flu like Verified 09/21/23 10:46 Antagonist symptoms [ARB-ANGIOTENSIN RECEPTOR ANTAGONIST] codeine [CODEINE] Allergy Mild VOMITING Verified 09/21/23 10:46 oxycodone [OXYCODONE] Allergy Mild VOMITING Verified 09/21/23 10:46 candesartan Allergy Verified 09/21/23 10:46 diphenhydramine Allergy Verified 09/21/23 10:46 guanfacine Allergy Verified 09/21/23 10:46 amlodipine AdvReac Mild Dizziness Verified 09/21/23 10:46 atenolol AdvReac Mild Dizziness Verified 09/21/23 10:46 diltiazem AdvReac Mild Dizziness Verified 09/21/23 10:46 fosinopril AdvReac Mild Dizziness Verified 09/21/23 10:46 lisinopril AdvReac Mild Dizziness Verified 09/21/23 10:46 metoprolol AdvReac Mild Dizziness Verified 09/21/23 10:46 nifedipine AdvReac Mild Dizziness Verified 09/21/23 10:46 propranolol AdvReac Mild Dizziness Verified 09/21/23 10:46 valsartan AdvReac Mild Dizziness Verified 09/21/23 10:46 Exam Vital Signs (past 8 hours): - 09/23/23 12:00 09/23/23 16:00 Temperature 98.2 F 97 F L Pulse Rate 97 H 96 H Respiratory Rate 35 H 19 Blood Pressure 178/77 H 172/96 H Pulse Oximetry 97 98 Oxygen Flow Rate 0 0 Oxygen Delivery Method Room Air Oxygen Flow Rate 0 Narrative Exam Narrative: GENERAL: Thin elderly woman alert disoriented. HEENT: Normocephalic, atraumatic. No scleral icterus CHEST: Rising symmetrically. No audible wheezes CARDIOVASCULAR: Warm and well perfused. Regular rate ABDOMEN: Positive Wilkinson sign. EXTREMITIES: Normal tone and without edema. NEUROLOGIC: Moving all extremities spontaneously. No gross motor deficits. Objective Labs 09/23/23 06:10 09/23/23 06:10 Labs: Laboratory Results - last 24 hr 09/22/23 09/23/23 09/23/23 18:10 00:28 06:10 WBC 15.6 H RBC 5.96 H Hgb 11.4 L Hct 34.6 L MCV 58.1 L MCH 19.2 L MCHC 33.1 RDW 17.2 H Plt Count 182 Neut % (Auto) 85.9 H Lymph % (Auto) 7.6 L Real % (Auto) 5.8 Eos % (Auto) 0.0 L Baso % (Auto) 0.7 Neut # (Auto) 96178 H Lymph # (Auto) 1200 Real # (Auto) 900 Eos # (Auto) 0 Baso # (Auto) 100 RBC Morphology See below Anisocytosis 2+ H Microcytosis 2+ H Ovalocytes 1+ H Schistocytes 1+ H APTT 52 H 48 H 53 H Sodium 133 L Potassium 3.4 Chloride 102 Carbon Dioxide 22 BUN 14 Creatinine 0.60 Estimated GFR > 60 BUN/Creatinine Ratio 23.3 H Glucose 146 H Calcium 9.2 Total Bilirubin 1.2 Conjugated Bilirubin 0.0 Unconjugated Bilirubin 1.0 AST 75 H ALT 40 H Alkaline Phosphatase 86 Total Protein 7.2 Albumin 4.2 Globulin 3.0 Albumin/Globulin Ratio 1.4 Procalcitonin 0.12 09/23/23 12:02 WBC RBC Hgb Hct MCV MCH MCHC RDW Plt Count Neut % (Auto) Lymph % (Auto) Real % (Auto) Eos % (Auto) Baso % (Auto) Neut # (Auto) Lymph # (Auto) Real # (Auto) Eos # (Auto) Baso # (Auto) RBC Morphology Anisocytosis Microcytosis Ovalocytes Schistocytes APTT 31 D Sodium Potassium Chloride Carbon Dioxide BUN Creatinine Estimated GFR BUN/Creatinine Ratio Glucose Calcium Total Bilirubin Conjugated Bilirubin Unconjugated Bilirubin AST ALT Alkaline Phosphatase Total Protein Albumin Globulin Albumin/Globulin Ratio Procalcitonin PFSH Medical History Mumps Measles Chicken pox Thalassemia Dementia Polyneuropathy following chemotherapy History of breast cancer History of endometrial cancer Acquired hypothyroidism Mixed hyperlipidemia Essential hypertension (~1986) Urinary incontinence without sensory awareness Urge incontinence Pelvic pain in female Lower urinary tract symptoms (LUTS) Postmenopausal atrophic vaginitis Thyroid disease Osteoporosis Hx of migraine headaches Anemia Breast cancer (~2017) Surgical History Anesthesia Status post hysterectomy (08/02/12) Status post parathyroidectomy Status post surgery (06/09/12) Family History Sister Cancer Kidney stones Father Diabetes mellitus Migraines Mother Hypertension Sister Fall History of heart disease Grandfather Stroke Grandmother History of heart disease Grandfather History of heart disease Grandmother History of heart disease Social History marital status: number of children: 3 household members: spouse occupational status: unemployed Tobacco & Substance Use Smoking Status: Never smoker alcohol intake: current Diet and Exercise caffeine: Yes Assessment & Plan Assessment and plan (1) Cholecystitis: Status: Acute Assessment & Plan narrative: 78-year-old woman PMH hypertension, dementia admitted with hypertensive emergency who has symptoms and radiographic findings suggestive of cholecystitis. Findings are significant for Wilkinson's sign on exam, leukocytosis with mild transaminitis, CT abdomen pelvis demonstrates gallbladder wall thickening with pericholecystic fluid. However, the abdominal ultrasound which I reviewed is normal. She is no longer critically ill having been weaned off the nicardipine drip she had mild demand ischemia and cardiac echocardiogram demonstrates a normal ejection fraction and normal wall motion her troponin has since down trended. I think that she would reasonably tolerate a laparoscopic cholecystectomy the alternative is cholecystostomy tube however we do not readily have Interventional Radiology capability at this facility. I discussed these things with her . His preference would be to proceed with surgery. We will recheck laboratory studies in am and if no resolution of leukocytosis on antibiotic therapy we will proceed with cholecystectomy.
--- NOTE | 2023-09-23 18:53 | PC.NURSE ---
rec'd report and assumed care of pt at noon; surgery was consulted and Dr Alonso came and spoke w/ pt and ; pt to have lap nathan in the morning at 0900; she will be NPO after midnight
[2023-09-24] VITALS (73 sets, daily range): BP systolic 102–211; BP diastolic 54–109; PULSE 83–119; RESP 16–31; TEMP 36.3–37.8; O2SAT 93–100
--- NOTE | 2023-09-24 | PATH_ITS ---
[facility] Accession Number: [id number] No. of containers..01 Tissue . 01 Material submitted: . gallbladder - GALLBLADDER . 01 Diagnosis: Gallbladder, Cholecystectomy: Mild chronic cholecystitis with reactive changes. Attached scant hepatic parenchyma without diagnostic abnormalities. Negative for dysplasia and malignancy. [facility] 09/29/2023 1649 Local . 01 Electronically signed: . Kuldeep Aguero MD, Pathologist NPI- [id number] . 01 Gross description: . The specimen is received in formalin labeled with the patient's name, , and gallbladder, consists of an intact gallbladder measuring 6.4 x 3.3 x 2.7 cm. The cystic duct margin is inked blue and no pericystic lymph node is identified. The lumen contains dark green mucoid bile with no calculi identified in the lumen or the container. The mucosa is green and velvety with no yellow discoloration, polyps, or lesions identified. The ramirez average 0.3 cm thick. Wrapper Layer And Examiner Soft Work sections to include the cystic duct margin and full thickness sections are submitted in cassette A1. ([id number]) /MRV 09/27/2023 1559 Local . 01 Pathologist provided ICD-10: K81.1 . 01 CPT . 151080 Specimen Comment: A courtesy copy of this report has been sent to [phone] Performed at: 01 [facility] [address] [place] [address], [place], [place] [id number] MD Bharat Louise MD Phone: [phone]
[2023-09-24] MEDS: PIPERACILLIN/TAZO 3.375 GM in SODIUM CHLORIDE 0.9% 100 ML IV ×3 (03:31→18:39)
[2023-09-24] MEDS: HYDRALAZINE 20 MG/ML VIAL 10 MG IV (04:08)
[2023-09-24 05:01] LABS: BUN Creatinine Ratio 21.4 (6-22); Blood Urea Nitrogen 15 mg/dL (7-17); Calcium 9.8 mg/dL (8.4-10.2); Carbon Dioxide 24 mmol/L (22-32); Chloride 103 mmol/L (98-107); Estimated Glomerular Filt Rate > 60 mL/min (>60); Glucose 152 mg/dL (80-110); HEMOLYSIS < 15 (0-50); Potassium 3.3 mmol/L (3.4-5.1); Sodium 136 mmol/L (137-145)
[2023-09-24 05:03] LABS: Hematocrit 35.7 % (36-46); Hemoglobin 11.7 g/dL (12.0-16.0); Mean Corpuscular HGB Conc 32.6 % (30-36); Mean Corpuscular Hemoglobin 18.9 PG (26-34); Mean Corpuscular Volume 57.8 fL (80-100); Platelet Count 195 X10^3/uL (150-400); Red Blood Cell Count 6.18 X10^6/uL (4.0-5.2); White Blood Cell Count 14.3 X10^3/uL (4.5-11.0)
[2023-09-24 05:04] LABS: Add Manual Diff / Slide Review YES
[2023-09-24] MEDS: LEVOTHYROXINE 88 MCG TABLET PO (05:18)
[2023-09-24] MEDS: LIOTHYRONINE 5 MCG TABLET PO (05:18)
[2023-09-24] MEDS: LABETALOL 20 MG/4 ML SYRINGE 10 MG IV ×3 (05:21→18:39)
[2023-09-24 05:34] LABS: Anisocytosis 1+; Neutrophils Absolute Manual 12441 /uL (3000-5900); Nucleated Red Blood Cells 1 #/Diff; Polychromasia 1+; Total Cells Counted 100
[2023-09-24 05:36] LABS: Microcytosis 2+
[2023-09-24] MEDS: AMLODIPINE 5 MG TABLET PO (08:07)
[2023-09-24] MEDS: SPIRONOLACTONE 25 MG TABLET PO ×2 (08:07→20:48)
[2023-09-24] MEDS: LABETALOL 100 MG TABLET PO ×2 (08:07→20:48)
[2023-09-24] MEDS: CHLORTHALIDONE 25 MG TABLET 12.5 MG PO (08:08)
[2023-09-24] MEDS: MINOXIDIL 5 MG 5 EACH PO (08:09)
[2023-09-24] MEDS: ACETAMINOPHEN IV 1,000 MG/100 ML VIAL 400 MG IV (09:41)
[2023-09-24] MEDS: LACTATED RINGERS 1,000 ML 42 ML IV (09:41)
--- NOTE | 2023-09-24 09:41 | P.PN_ITS ---
Subjective Subjective Date Patient Seen: 09/24/23 Time Patient Seen: 09:41 Interval history: No acute overnight events. remains disoriented. Exam Vital Signs (past 8 hours): - 09/24/23 04:00 09/24/23 04:08 09/24/23 04:27 Temperature 98.7 F Pulse Rate 107 H 107 H 119 H Respiratory Rate 18 Blood Pressure 211/96 H 211/96 H 146/77 H Pulse Oximetry 98 Oxygen Delivery Method Oxygen Flow Rate 09/24/23 04:49 09/24/23 05:21 09/24/23 05:53 Temperature Pulse Rate 109 H 116 H 94 H Respiratory Rate 18 Blood Pressure 160/72 H 177/109 H 171/74 H Pulse Oximetry 97 Oxygen Delivery Method Oxygen Flow Rate 09/24/23 06:48 09/24/23 07:00 09/24/23 07:16 Temperature Pulse Rate 99 H 88 Respiratory Rate Blood Pressure 183/77 H 194/81 H Pulse Oximetry Oxygen Delivery Method Room Air Oxygen Flow Rate 09/24/23 08:00 09/24/23 08:07 Temperature 98.3 F Pulse Rate 89 96 H Respiratory Rate 24 Blood Pressure 171/77 H 191/80 H Pulse Oximetry 97 Oxygen Delivery Method Oxygen Flow Rate 0 Oxygen Delivery Method Room Air Oxygen Flow Rate 0 Narrative Exam Narrative: Gen-Adult woman alert disoriented Chest-Non labored resp Abdomen-Tender RUQ Objective Labs 09/24/23 04:10 09/24/23 04:10 Labs: Laboratory Results - last 24 hr 09/23/23 09/24/23 12:02 04:10 WBC 14.3 H RBC 6.18 H Hgb 11.7 L Hct 35.7 L MCV 57.8 L MCH 18.9 L MCHC 32.6 RDW 17.0 H Plt Count 195 Neut % (Auto) Not Reportable Lymph % (Auto) Not Reportable [place] % (Auto) Not Reportable Eos % (Auto) Not Reportable Baso % (Auto) Not Reportable Lymph # (Auto) Not Reportable [place] # (Auto) Not Reportable Baso # (Auto) Not Reportable Total Counted 100 Seg Neutrophils % 85.0 H Band Neutrophils % 2.0 L Lymphocytes % (Manual) 4.0 L Monocytes % (Manual) 9.0 Neutrophils # (Manual) 15927 H Nucleated RBCs 1 H RBC Morphology See below Polychromasia 1+ H Anisocytosis 1+ H Microcytosis 2+ H APTT 31 D Sodium 136 L Potassium 3.3 L Chloride 103 Carbon Dioxide 24 BUN 15 Creatinine 0.70 Estimated GFR > 60 BUN/Creatinine Ratio 21.4 Glucose 152 H Calcium 9.8 PFSH Medical History Mumps Measles Chicken pox Thalassemia Dementia Polyneuropathy following chemotherapy History of breast cancer History of endometrial cancer Acquired hypothyroidism Mixed hyperlipidemia Essential hypertension (~1986) Urinary incontinence without sensory awareness Urge incontinence Pelvic pain in female Lower urinary tract symptoms (LUTS) Postmenopausal atrophic vaginitis Thyroid disease Osteoporosis Hx of migraine headaches Anemia Breast cancer (~2017) Surgical History Anesthesia Status post hysterectomy (08/02/12) Status post parathyroidectomy Status post surgery (06/09/12) Family History Sister Cancer Kidney stones Father Diabetes mellitus Migraines Mother Hypertension Sister Fall History of heart disease Grandfather Stroke Grandmother History of heart disease Grandfather History of heart disease Grandmother History of heart disease Social History marital status: number of children: 3 household members: spouse occupational status: unemployed Smoking Status: Never smoker alcohol intake: current caffeine: Yes Assessment & Plan Assessment and plan (1) Cholecystitis: Status: Acute Assessment & Plan narrative: 78F PMH HTN, dementia with acute cholecystitis Leukocytosis remains unchanged. Discussed with options including proceeding with cholecystectomy vs continued antibiotic therapy. Following discussion preference is to proceed with laparoscopic cholecystectomy. Overview of the operation described. Operative risks including hemorrhage, infection, damage to surrounding structures, conversion to open discussed. He provides his written and verbal consent to proceed. Quality VTE Deep Vein Thrombosis/Pulmonary Embolism Present on Admission: No
--- NOTE | 2023-09-24 10:22 | SUR.OPER ---
Supine on padded OR bed, head on pillow, safety belt at thigh, both arms padded and tucked at side. Legs uncrossed. Padded footboard in place. Tape over blanket to secure lower legs.
[2023-09-24] MEDS: BUPIVACAINE 0.25% (PF) VIAL 30 ML INJ (10:49)
--- NOTE | 2023-09-24 11:21 | P.OP_ITS ---
Operative Date/Time/Diagnoses Date of procedure: 09/24/23 Time of procedure: 11:22 Pre-op diagnosis: Acalculous cholecystitis Post-op diagnosis: same Procedure & Clinicians Procedure: Laparoscopic cholecystectomy Same procedure as scheduled: Yes Indications: 78-year-old woman admitted to the hospital with hypertensive emergency and abdominal pain with emesis. CT demonstrates gallbladder wall thickening and pericholecystic fluid. HIDA scan demonstrates ejection fraction of 0% no obstruction of gallbladder. Surgeon: Colin Alonso Click Yes if Unassisted: Yes Anesthesia Type: General Operative Notes Findings: Distended gallbladder with early wall ischemia Specimen(s): other (Gallbladder) Estimated Blood Loss (mL): 20 Procedure in detail: The patient was placed supine on the table and bilateral lower extremity compression devices were applied. Anesthesia was induced they were intubated wi th an endotracheal tube she would previously received Zosyn.. A time-out was performed. They were prepped and draped in sterile fashion. An infraumbilical incision was made. The fascia was elevated incised and the abdomen was entered atraumatically. A blunt tip 12mm balloon trocar was then inserted, pneumoperitoneum was established and inspection of the abdomen demonstrated no evidence of injury. They were placed head up and right side up and then a 11 mm port was placed high in the epigastrium and two 5mm in the right upper quadrant. The gallbladder was very distended its wall showed early ischemia. The gallbladder was percutaneously drained. The gallbladder was grasped by the fundus and retracted over the liver and retracted laterally by the infundibulum. Using electrocautery the lateral plane between the gallbladder and the liver was opened towards the fundus. The gallbladder was then retracted laterally and the medial plane was developed in the same manner. With the gallbladder mobilized the bottom of the cystic plate was visualized. The hepatocystic triangle was meticulosly skeletonized with blunt dissection of fat and fibrous tissue from both the front and the back. 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 Only two structures were then clearly seen entering the gallbladder the cystic duct and the cystic artery. With the critical view of james obrien fully established the cystic duct was clipped twice proximally and once distally using the 10 mm Weck hemoclip applied under direct visualization and then sharply divided. The short cystic artery was divided in the same fashion. The gallbladder was removed from the liver bed using electro cautery. The liver bed was then inspected for hemostasis and this was achieved. The abdomen was irrigated with sterile saline and inspection was made that showed the clips in good position. The specimen was removed using Endo-Catch. The abdomen was desufflated. The umbilical fascia was closed with 0 Vicryl in a [id number] fashion under direct visualization. Skin incisions were irrigated and closed with 4-0 Monocryl. 30 ml of 0.25% bupivacaine was infiltrated into the subcutaneous tissue of the incisions. The wounds were sealed with Dermabond. Patient emerged from anesthesia was extubated and transferred to recovery in stable condition. The sponge and instrument count at the end of the operation was correct. Complications: none Post-operative Condition: stable Disposition: ICU
--- NOTE | 2023-09-24 11:32 | SUR.PHASEI ---
Report called to [place].
[2023-09-24] MEDS: POTASSIUM CHLORIDE 20 MEQ TAB 40 MEQ PO (11:56)
--- NOTE | 2023-09-24 11:56 | SUR.PHASEI ---
Patient transferred to the floor. Report given to [place]. VS stable. IV patent. scant bloody drainage to one abdominal bandaid, the 3 others were CDI.
--- NOTE | 2023-09-24 12:12 | PC.NURSE ---
Addendum entered by [place] Leblanc R.N. 09/24/23 18:49: BP elevated Systolic over 180, HR over 100, RN notified provider and then gave labetalol. Dressings continue to be c/d/i with small amount of drainage. Abdomen soft, mild distention and tenderness. Pt afebrile after returning from surgery. Original Note: Pt arrived back on unit, VSS, denies pain, dressings on abdomen c/d/i, bowel sounds present, abdomen soft and non-tender, mild distention.
[2023-09-24] MEDS: ACETAMINOPHEN 325 MG TABLET 650 MG PO ×2 (12:28→18:39)
--- NOTE | 2023-09-24 15:19 | PM.PN.1 ---
Subjective Subjective Interval history: 78 F with PMH of dementia, admitted with acaculous cholecystitis. S/p lap nathan today with general surgery, complains of abdominal soreness. Continues to not be able to tolerate much PO intake today. Exam Vital Signs (past 8 hours): - 09/24/23 07:27 09/24/23 07:27 09/24/23 07:30 Temperature Pulse Rate 94 H 90 Respiratory Rate Blood Pressure 171/77 H Pulse Oximetry 96 96 Oxygen Delivery Method Oxygen Flow Rate 09/24/23 07:45 09/24/23 08:00 09/24/23 08:00 Temperature 98.3 F Pulse Rate 97 H 89 Respiratory Rate 24 Blood Pressure 171/77 H 191/80 H Pulse Oximetry 98 97 Oxygen Delivery Method Oxygen Flow Rate 0 09/24/23 08:00 09/24/23 08:07 09/24/23 08:15 Temperature Pulse Rate 98 H 96 H 99 H Respiratory Rate Blood Pressure 191/80 H Pulse Oximetry 97 97 Oxygen Delivery Method Oxygen Flow Rate 09/24/23 08:29 09/24/23 08:29 09/24/23 08:30 Temperature Pulse Rate 96 H 95 H Respiratory Rate Blood Pressure 168/72 H Pulse Oximetry 97 97 Oxygen Delivery Method Oxygen Flow Rate 09/24/23 08:37 09/24/23 08:45 09/24/23 09:00 Temperature Pulse Rate 90 90 Respiratory Rate Blood Pressure 168/72 H Pulse Oximetry 97 96 Oxygen Delivery Method Oxygen Flow Rate 09/24/23 09:15 09/24/23 09:23 09/24/23 09:23 Temperature Pulse Rate 90 88 Respiratory Rate Blood Pressure 175/73 H Pulse Oximetry 97 96 Oxygen Delivery Method Oxygen Flow Rate 09/24/23 09:40 09/24/23 11:04 09/24/23 11:10 Temperature 100.0 F H 97.6 F Pulse Rate 89 92 H 91 H Respiratory Rate 28 H 18 18 Blood Pressure 162/80 H 102/57 L 106/58 L Pulse Oximetry 96 96 96 Oxygen Delivery Method Room Air Room Air Room Air Oxygen Flow Rate 09/24/23 11:13 09/24/23 11:19 09/24/23 11:24 Temperature 98.1 F Pulse Rate 87 88 83 Respiratory Rate 21 24 17 Blood Pressure 114/56 L 106/54 L 114/77 Pulse Oximetry 93 94 97 Oxygen Delivery Method Room Air Room Air Room Air Oxygen Flow Rate 09/24/23 11:40 09/24/23 12:10 09/24/23 12:40 Temperature 97.4 F L 98.5 F 97.5 F L Pulse Rate 86 83 83 Respiratory Rate 22 22 22 Blood Pressure 124/64 171/79 H 176/79 H Pulse Oximetry 95 96 96 Oxygen Delivery Method Oxygen Flow Rate 0 0 0 09/24/23 13:40 Temperature 97.8 F Pulse Rate 96 H Respiratory Rate 22 Blood Pressure 164/70 H Pulse Oximetry 97 Oxygen Delivery Method Oxygen Flow Rate 0 Oxygen Delivery Method Room Air Oxygen Flow Rate 0 Narrative Exam Narrative: NAD, fluent speech. Mildly confused. AOx2 Normocephalic skull EOMI, symmetric pupils. Anicteric sclera. Oropharynx is unremarkable, no droop. Neck is supple, normal JVP, midline trachea no adenopathy. Lungs are clear, normal rate and effort. Heart is regular, no murmur gallop or rub. Extremities are free of edema with good pedal and radial pulses. Skin is free of rash or lesions. Neurologically cranial nerves are intact grossly, motor strength is 5/5 in arms and legs. Joints are not deformed swollen. Objective Labs 09/24/23 04:10 09/24/23 04:10 Labs: Laboratory Results - last 24 hr 09/24/23 04:10 WBC 14.3 H RBC 6.18 H Hgb 11.7 L Hct 35.7 L MCV 57.8 L MCH 18.9 L MCHC 32.6 RDW 17.0 H Plt Count 195 Neut % (Auto) Not Reportable Lymph % (Auto) Not Reportable [place] % (Auto) Not Reportable Eos % (Auto) Not Reportable Baso % (Auto) Not Reportable Lymph # (Auto) Not Reportable [place] # (Auto) Not Reportable Baso # (Auto) Not Reportable Total Counted 100 Seg Neutrophils % 85.0 H Band Neutrophils % 2.0 L Lymphocytes % (Manual) 4.0 L Monocytes % (Manual) 9.0 Neutrophils # (Manual) 10882 H Nucleated RBCs 1 H RBC Morphology See below Polychromasia 1+ H Anisocytosis 1+ H Microcytosis 2+ H Sodium 136 L Potassium 3.3 L Chloride 103 Carbon Dioxide 24 BUN 15 Creatinine 0.70 Estimated GFR > 60 BUN/Creatinine Ratio 21.4 Glucose 152 H Calcium 9.8 PFSH Medical History Mumps Measles Chicken pox Thalassemia Dementia Polyneuropathy following chemotherapy History of breast cancer History of endometrial cancer Acquired hypothyroidism Mixed hyperlipidemia Essential hypertension (~1986) Urinary incontinence without sensory awareness Urge incontinence Pelvic pain in female Lower urinary tract symptoms (LUTS) Postmenopausal atrophic vaginitis Thyroid disease Osteoporosis Hx of migraine headaches Anemia Breast cancer (~2017) Surgical History Anesthesia Status post hysterectomy (08/02/12) Status post parathyroidectomy Status post surgery (06/09/12) Family History Sister Cancer Kidney stones Father Diabetes mellitus Migraines Mother Hypertension Sister Fall History of heart disease Grandfather Stroke Grandmother History of heart disease Grandfather History of heart disease Grandmother History of heart disease Social History marital status: number of children: 3 household members: spouse occupational status: unemployed Smoking Status: Never smoker alcohol intake: current caffeine: Yes Assessment & Plan Assessment & Plan narrative: 1. Hypertensive emergency, present on admission and active. 2. Lactic acidemia, present on admission and resolved with IVF. 3. Elevated troponin consistent with demand ischemia, present on admission and active. Finished 24 hours of heparin drip. Echo reassuring. 4. Acalculous cholecystitis, present on admission and active. 5. Hypothyroidism, present on admission and stable. 6. Thalassemia, present on admission stable. 7. Dementia, present on admission and stable. 8. Neuropathy following chemotherapy, present on admission and stable. 9. Hyperlipidemia, present on admission and active. 10. UTI, poa Plan: -nicardipine drip on in ED then stopped on HD1 -restarted home BP meds. Increased minoxidil after speaking with PCP Dr. Thomas who would rather try higher doses than switching back to clonidine. -added amlodipine and chlorthalidone -troponin peaked at 0.5 and now downtrending, EKG without ST changes, 2D echo done without WMA and EF 60-65% -HIDA c/w acalculous cholecystitis and gallbladder EF of 0% -continue Zosyn for UTI and cholecystitis, urine culture with pansensitive E. coli -Dr. Dooley gen surg consulted for lap nathan, performed 09/24/23 Patient is full resuscitation. Proxy decision maker is . Dispo: Likely home in 1-2 days, feels weak will further evaluate with PT consultation. Time Spent With Patient Time with patient: 30 to 49 minutes with 50% spent counseling/coordinating care Quality VTE Deep Vein Thrombosis/Pulmonary Embolism Present on Admission: No
[2023-09-24] MEDS: HYDROMORPHONE 2 MG TABLET 1 MG PO (16:10)
[2023-09-25] VITALS (34 sets, daily range): BP systolic 147–203; BP diastolic 65–85; PULSE 75–108; RESP 17–27; TEMP 36.2–37.4; O2SAT 95–99
[2023-09-25] MEDS: HYDRALAZINE 20 MG/ML VIAL 10 MG IV (01:02)
[2023-09-25] MEDS: PIPERACILLIN/TAZO 3.375 GM in SODIUM CHLORIDE 0.9% 100 ML IV (03:39)
[2023-09-25] MEDS: ACETAMINOPHEN 325 MG TABLET 650 MG PO (04:05)
[2023-09-25] MEDS: LABETALOL 20 MG/4 ML SYRINGE 10 MG IV (04:06)
[2023-09-25 04:59] LABS: Hematocrit 31.2 % (36-46); Hemoglobin 10.2 g/dL (12.0-16.0); Mean Corpuscular HGB Conc 32.7 % (30-36); Mean Corpuscular Hemoglobin 18.9 PG (26-34); Mean Corpuscular Volume 57.9 fL (80-100); Platelet Count 163 X10^3/uL (150-400); Red Blood Cell Count 5.38 X10^6/uL (4.0-5.2); Red Cell Distribution Width 16.7 % (11.6-14.8)
[2023-09-25 05:00] LABS: Add Manual Diff / Slide Review YES
[2023-09-25 05:01] LABS: BUN Creatinine Ratio 28.1 (6-22); Blood Urea Nitrogen 18 mg/dL (7-17); Calcium 9.2 mg/dL (8.4-10.2); Carbon Dioxide 24 mmol/L (22-32); Chloride 99 mmol/L (98-107); Estimated Glomerular Filt Rate > 60 mL/min (>60); Glucose 135 mg/dL (80-110); HEMOLYSIS < 15 (0-50); Potassium 3.2 mmol/L (3.4-5.1); Sodium 131 mmol/L (137-145)
[2023-09-25 05:46] LABS: Neutrophils Absolute Manual 11570 /uL (3000-5900); Nucleated Red Blood Cells 3 #/Diff; Total Cells Counted 100
[2023-09-25 05:49] LABS: Anisocytosis 1+; Microcytosis 2+; Polychromasia 1+
[2023-09-25 05:50] LABS: Ovalocytes 1+
--- NOTE | 2023-09-25 05:58 | PC.NURSE ---
Patient alert and oriented to person only and occasionally to birthday. Patient restless for most of the night, getting in and out of the bed, very impulsive. Bed alarm on for safety. Patient reports having no pain for most of the night, PRN Tylenol administered x1. Hypertensive throughout the night, PRN medication administered to meet SBP goal <180. Afebrile, NSR, tolerating RA. Ambulates well with standby assist. Tolerating clear liquid diet with decreased appetite noted, patient did eat two jellos during shift, reports no nausea. Voids per brief and occasionally ambulates to restroom, no BM noted this shift. Patient removed PIV, catheter intact, PIV replaced, tolerated well, Zosyn running per order. Lap site incision to abdomen x4 intact and covered with bandaids, scant amount of serosanguinous drainage note. Plan of care continued.
[2023-09-25] MEDS: LEVOTHYROXINE 88 MCG TABLET PO (06:38)
[2023-09-25] MEDS: LIOTHYRONINE 5 MCG TABLET PO (06:38)
[2023-09-25] MEDS: CHLORTHALIDONE 25 MG TABLET 12.5 MG PO (08:07)
[2023-09-25] MEDS: AMLODIPINE 5 MG TABLET PO (08:08)
[2023-09-25] MEDS: LABETALOL 100 MG TABLET PO (08:08)
[2023-09-25] MEDS: ASPIRIN EC 81 MG TABLET PO (08:08)
[2023-09-25] MEDS: SPIRONOLACTONE 25 MG TABLET PO (08:08)
[2023-09-25] MEDS: MINOXIDIL 5 MG 5 EACH PO (08:16)
[2023-09-25] MEDS: POTASSIUM CHLORIDE 20 MEQ TAB 40 MEQ PO (08:16)
[2023-09-25] MEDS: HYDROMORPHONE 2 MG TABLET 1 MG PO (08:23)
--- NOTE | 2023-09-25 09:19 | PM.OP.EGD ---
Operative Date/Time/Diagnoses Date of procedure: 09/25/23 Time of procedure: 09:19 Pre-op diagnosis: Gastric outlet obstruction Post-op diagnosis: other (Pyloric mass) Procedure & Clinicians Study performed: Esophagogastrostroduodenoscopy Same procedure as scheduled: Yes Indications: 78-year-old woman who is admitted to the hospital with abdominal pain generalized decline over the past several months imaging demonstrates thickening of the pyloric channel Surgeon: Colin Alonso Procedure Notes Procedure in detail: Patient was brought to procedure room placed supine on the table. General anesthesia was induced he was intubated with an endotracheal tube. Time-out was performed. The endoscope was inserted into the mouth and passed easily down the esophagus. The stomach was notable for flecks of clot. Within the pyloric channel there has a ulcerated obstructing mass. We are unable to passed the EGD scope into the duodenum secondary to the degree of obstruction. Numerous biopsies of the pyloric mass were taken. Its appearance is consistent with malignancy. Specimen(s): other (Pyloric mass) Impression: Pyloric mass Post-procedure Plan for aftercare: Discussion with family regarding goals of care Disposition: Acute Care
[2023-09-25] MEDS: ONDANSETRON 4 MG/2 ML INJ IV (09:50)
--- NOTE | 2023-09-25 10:22 | PT-IP ANOTE ---
Spoke with nursing who reported patient having nausea, was just given medication. Spoke with Brian who reports pt nauseous and tired this am, not up for PT. He states she is a little weak and shaky after 4 days in bed but he doesn't have big concerns about her mobility in going home with his assist. He reports patient didn't use an assistive device, and only recent fall was due to medication causing dizziness. He was receptive to PT returning for evaluation later today or tomorrow am.
--- NOTE | 2023-09-25 12:20 | CM.DPC ---
DCP Discharge Home with HH Per MD and Surgeon, pt tolerating clear liquids and advancing diet but still not much of an appetite and medically stable to d/c home today with spouse and HH. Per PT, recommending home with spouse assist and HH. SW met bedside with pt and spouse and pt confirms she is still having some nausea and fatigue but both spouse and pt agreeable with discharge home today. SW discussed HH recommendation and spouse confirms his preference is home with HH and pt has no HH hx. SW explained HH services and frequency and provided HH Choice List and after spouse review he states he has no HH preference. CHUCKY made [facility] referral based on vendor calendar and faxed clinicals along with completed F2F and HH orders for RN/PT/SR. OPERATIONS MANAGER and called with new referral. CHUCKY updated RN. Plan: Patient to d/c home today via spouse POV and new [facility] referral to follow for RN/PT/SR. OPERATIONS MANAGER this week. GEMMA Nava
--- NOTE | 2023-09-25 12:29 | PT.IIE ---
Current Diagnoses Hypo-osmolality and hyponatremia (09/21/23) Essential (primary) hypertension (09/21/23) Cholecystitis, unspecified (09/21/23) Surgery Performed Operation Date: 09/24/23 09:00 Actual Procedures p Laparoscopic Cholecystectomy - Colin Alonso MD Surgical History (Last Reviewed 09/23/23 @ 18:20 by Colin Alonso MD) Anesthesia Status post hysterectomy (08/02/12) Status post parathyroidectomy Status post surgery (06/09/12) Medical History (Last Reviewed 09/23/23 @ 18:20 by Colin Alonso MD) Acquired hypothyroidism Anemia Breast cancer (~2017) Chicken pox Dementia Essential hypertension (~1986) History of breast cancer History of endometrial cancer Hx of migraine headaches Lower urinary tract symptoms (LUTS) Measles Mixed hyperlipidemia Mumps Osteoporosis Pelvic pain in female 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 Thalassemia Thyroid disease Urge incontinence Urinary incontinence without sensory awareness Physical Therapy Inpatient Evaluation/Re-Eval M1 PT/OT-IP Prior Functional Status Start: 09/22/23 08:19 Freq: NEEDED Status: Active Protocol: Document 09/25/23 12:12 [facility] (Rec: 09/25/23 12:28 [facility] [id number]) Medical Review Prior Functional Status Medical History Reviewed Yes Diet/Fluid Consistency Regular Communication dementia Mobility and Gait independent without device indoors, holds onto outdoors, reports no falls except 1x after taking medication that made her dizzy Activities of Daily Living and IADL's assisted by Social History Household Members spouse Living Arrangements House Number of Floors (Floors) Two Floors Number of Stairs To Enter/Railing? 1, no railing no railing Home Environment Standard Height Toilet,Walk in Shower M2 PT-IP Current Condition Start: 09/22/23 08:19 Freq: NEEDED Status: Active Protocol: Document 09/25/23 12:12 [facility] (Rec: 09/25/23 12:28 [facility] [id number]) Physical Therapy Current Condition Current Condition Evaluation Date 09/25/23 Treatment Diagnosis weakness Onset Date 09/22/23 M3 PT-IP Subjective Start: 09/22/23 08:19 Freq: NEEDED Status: Active Protocol: Document 09/25/23 12:12 [facility] (Rec: 09/25/23 12:28 [facility] [id number]) Subjective Physical Therapy Visit Type Type Initial Evaluation Visit Start Time 11:50 Visit Stop Time 12:15 Number of DIVORCE MEDIATOR Visits 0 Physical Therapy Visit Comments Patient Comments Patient reports still has some nausea, wants to stay in bed, but with encouragement by RN, , and PT patient willing to get OOB. Patient Goals go home with Therapy Pain Assessment Pain When Pain Assessed At Rest Pain Present Pain Present Pain Reported FLACC Pain Scale Face Occasional grimace/frown Legs Uneasy, restless, tense Activity Squirming,shifting Cry Moans/whimpers/complains Consolability Reassurable with touch FLACC Total 5 M4 PT-IP Mobility and Gait Start: 09/22/23 08:19 Freq: NEEDED Status: Active Protocol: Document 09/25/23 12:12 [facility] (Rec: 09/25/23 12:28 [facility] [id number]) PT-Bed Mobility Assessment Rolling Level of Assist Minimal Assistance Supine to Sit Supine to Sit Minimal Assistance Sit to Supine Sit to Supine Contact Guard Assistance Scooting Scooting to Edge of Bed Minimal Assistance Scooting Up and Down in Bed Minimal Assistance PT-Transfer Assessment Sit to and From Stand Sit to and from Stand Contact Guard Assistance, Minimal Assistance Transfers Transfer Destination Chair Transfer Ability Level of Assist Minimal Assistance Gait Assessment Gait Gait Assistance Required: Contact Guard Assist,Minimum Assistance Distance (Feet) 20 Assistive Devices Assistive Device None Gait Deviations General Gait Pattern Decreased Stride Length, Decreased Feet Clearance, Narrow Based Gait Factors Limiting Gait Function Factors Limiting Gait Function Decreased Strength,Difficulty Following Directions,Poor Safety Awareness PT-Balance Assessment Sitting Balance and Reactions Static Sitting Balance Ability Fair Dynamic Sitting Balance Ability Fair Standing Balance and Reactions Static Standing Balance Ability Fair Dynamic Standing Balance Ability Fair Device Used no device, PT assist M5 PT-IP Objective Assessments Start: 09/22/23 08:19 Freq: NEEDED Status: Active Protocol: Document 09/25/23 12:12 [facility] (Rec: 09/25/23 12:28 [facility] [id number]) Orientation Orientation/Cognition Orientation Name,Birthday Gross Range of Motion Upper Extremity ROM Assessment Within Functional Limits Lower Extremity ROM Assessment Within Functional Limits Strength Upper Extremity Strength Assessment Within Functional Limits Lower Extremity Strength Assessment Bilaterally Impaired Comments Strength Comments unable to MMT due to cognition , has antigravity strength Sensation Assessment Sensation Gross Sensation WNL M6 PT-IP Treatment Start: 09/22/23 08:19 Freq: NEEDED Status: Active Protocol: Document 09/25/23 12:12 [facility] (Rec: 09/25/23 12:28 [facility] [id number]) Physical Therapy Treatment Education Education Provided Safety Other Treatments Other Treatment Performed safety education for , recommend PT for strengthening, gait, and balance, home safety evaluation M7 PT-IP Assessment and Plan Start: 09/22/23 08:19 Freq: NEEDED Status: Active Protocol: Document 09/25/23 12:12 [facility] (Rec: 09/25/23 12:28 [facility] [id number]) PT Summary Assessment and Plan Potential Rehabilitation Potential Good Status of Condition at Evaluation Evolving Summary Impairments Strength,Balance,Bed Mobility, Transfers,Gait,Activity Tolerance Assessment Summary Patient seen for PT evaluation prior to discharge home today . She was reluctant to participate at first but with encouragement from , RN , and PT was willing to get OOB for PT evaluation. Patient required CG to min assist for all mobility skills and has generalized weakness from hospitalization making her a high fall risk at this time. PT stressed to importance of being available to assist her as needed for safety and to consider HH PT recommended by this PT; he was receptive. If she remains in the hospital recommend possible training with use of cane for safety with gait. May benefit from SNF rehab but patient desire is to go home and wants to honor that. Goals Bed Mobility Goal Independent Transfer Goal Independent Gait Goal Independent,Cane Gait Distance 50 Days to Meet Goals 5 Frequency of Treatment Frequency Of Treatment Once a Day Treatment Plan Physical Therapy Treatment Plan Bed Mobility Training,Transfer Training,Gait Training, Therapeutic Exercise,Balance Retraining Other Recommendations and Next Treatment consider gait training with Focus cane for safe ambulation Precautions Other Precautions fall Recommendations To Nursing Amount of Assist Needed 1 Person Assist Discharge Recommendations PT Discharge Recommendations Home with 14/03 Assist Available,Home Health,SNF Rehab Other Discharge Recommendations Recommmended patient install grab bars in shower and railings by stairs. Home safety evaluation by PT.
--- NOTE | 2023-09-25 12:55 | P.DS_ITS ---
History of Present Illness History of Present Illness Date Patient Seen: 09/25/23 Time Patient Seen: 12:55 Chief complaint: bp spiking over 200 over night /vomitting Narrative: Per admitting provider, The patient is an 78-year-old female presents with headache and hypertensive urgency. She would initial systolic blood pressure of 230. She has a history of hypertension and breast cancer with previous lumpectomy and chemo and radiation therapy. She was initially on Catapres and this was discontinued due to a change in coverage for a Medicare. She took her last dose on Tuesday and was started on minoxidil Tuesday morning. She began to be feel ill on Tuesday with headache and this led to nausea and vomiting Tuesday evening. She also feels mentally fuzzy. She presented to the ED was found to be extremely hypertensive. She does take labetalol 100 mg b.i.d. as well as spironolactone 50 mg b.i.d.. She notes a pressures have been high at home as well for the last day. She denies any alcohol or drug use. Her primary care doctor is Dr. Thomas. In the emergency department she was given a dose of labetalol at transient improvement of pressure and then rebound hypertension. She will be started on nicardipine and her medications will be re-loaded orally will wean this over the next 12-24 hours. She did have a CT scan which was negative for evidence of dissection. A brain CT was also normal. When I spoke to her she demonstrates significant cognitive impairment. She has in no distress. She has not able to report much in terms of specific details to me. She denies chest pain or shortness of breath. Her blood pressure is 148 systolic upon arrival and her nicardipine was stopped in the emergency department before she came up to the floor. Discharge Providers Provider Date of admission: 09/21/23 14:22 Discharge Date: 09/25/23 Primary care physician: Dong Thomas MD Consults: 09/23/23 12:50 Consult to General Surgery Routine Comment: Consulting Provider: Colin Alonso Reason for consultation: acalculous cholecystitis 09/24/23 15:17 Consult to Physical Therapy Evaluate & Treat Comment: Physician Instructions: Evaluate and Treat 09/25/23 12:33 Consult to Home Health Routine Comment: hypertensive urgency, cholecycstitis, lap nathan Reason For Exam: Set up RN/PT/SUPPLY CHAIN MANAGER for discharge to home Discharge provider: Ernesto Macias DO Summary Hospital Course Discharge Diagnosis: 1. Hypertensive emergency, present on admission and active. 2. Lactic acidemia, present on admission and resolved 3. Elevated troponin consistent with demand ischemia, present on admission 4. Acalculous cholecystitis, present on admission and resolved 5. Hypothyroidism, present on admission and stable. 6. Thalassemia, present on admission stable. 7. Dementia, present on admission and stable. 8. Neuropathy following chemotherapy, present on admission and stable. 9. Hyperlipidemia, present on admission and active. 10. UTI, poa Hospital Course: This is an 78 year old female with PMH of dementia who presented with a presumed hypertensive emergency. Her troponin was initially elevated and she was started on heparin infusion for possible NSTEMI, however with a reassuring echocardiogram heparin was discontinued at approximately 24 hours. She continued to be nauseous and have epigastric discomfort, CT scan showed possible cholecystitis. HIDA scan was ultimately positive with a 0% EF. She was then taken for cholecystectomy, antibiotics were started for acalculous cholecystitis and discontinued at discharge. This adequately fire eater her UTI which urine cultures grew a sensitive E. coli. Her home blood pressure medications were increased, with improvement overall in her BP. She had no ongoing symptoms. After surgery she worked with therapy and was ambulating well enough to discharge home. For her blood pressure, her home minoxidil was doubled to 5 mg daily, amlodipine was added (patient has noted prior dizziness but tolerated this medication here), along with chlorthalidone and sprionolactone. Her SBP was in the 150s to 160s at the time of discharge. I recommend ongoing monitoring of BP at home, along with repeat lab evaluation in the next few days as an outpatient given the addition of diuretic therapy. BMP was ordered to be done in approx. 2 days to recheck as an outpatient. Time Spent with Patient Time spent: Greater than 30 minutes Exam Vital Signs (past 8 hours): - 09/25/23 05:00 09/25/23 06:00 09/25/23 07:00 Temperature Pulse Rate 90 89 89 Respiratory Rate 25 H 19 20 Blood Pressure Pulse Oximetry 96 96 95 Oxygen Delivery Method Oxygen Flow Rate 09/25/23 07:21 09/25/23 07:21 09/25/23 07:22 Temperature Pulse Rate 89 88 Respiratory Rate 27 H 19 Blood Pressure 203/81 H 203/81 H Pulse Oximetry 97 98 Oxygen Delivery Method Oxygen Flow Rate 0 09/25/23 08:00 09/25/23 08:01 09/25/23 08:01 Temperature Pulse Rate 89 94 H Respiratory Rate 22 20 Blood Pressure 198/81 H Pulse Oximetry 96 96 Oxygen Delivery Method Oxygen Flow Rate 09/25/23 08:08 09/25/23 08:25 09/25/23 08:26 Temperature 97.1 F L Pulse Rate 75 Respiratory Rate Blood Pressure 198/81 H 173/74 H Pulse Oximetry Oxygen Delivery Method Oxygen Flow Rate 09/25/23 08:26 09/25/23 08:59 09/25/23 09:00 Temperature Pulse Rate 98 H 75 78 Respiratory Rate 25 H 20 Blood Pressure 173/74 H Pulse Oximetry 99 98 Oxygen Delivery Method Oxygen Flow Rate 09/25/23 09:06 09/25/23 09:34 09/25/23 09:34 Temperature Pulse Rate 92 H Respiratory Rate 27 H Blood Pressure 147/66 H Pulse Oximetry Oxygen Delivery Method Room Air Oxygen Flow Rate 09/25/23 09:35 09/25/23 10:00 09/25/23 11:00 Temperature Pulse Rate 83 80 84 Respiratory Rate 20 17 Blood Pressure 147/66 H Pulse Oximetry Oxygen Delivery Method Oxygen Flow Rate 09/25/23 11:34 09/25/23 11:34 Temperature Pulse Rate 86 Respiratory Rate 22 Blood Pressure 154/69 H Pulse Oximetry Oxygen Delivery Method Oxygen Flow Rate Oxygen Delivery Method Room Air Oxygen Flow Rate 0 Objective Labs 09/25/23 04:35 09/25/23 04:35 Labs: Laboratory Results - last 24 hr 09/25/23 04:35 WBC 13.0 H RBC 5.38 H Hgb 10.2 L Hct 31.2 L MCV 57.9 L MCH 18.9 L MCHC 32.7 RDW 16.7 H Plt Count 163 Neut % (Auto) Not Reportable Lymph % (Auto) Not Reportable [place] % (Auto) Not Reportable Eos % (Auto) Not Reportable Baso % (Auto) Not Reportable Lymph # (Auto) Not Reportable [place] # (Auto) Not Reportable Baso # (Auto) Not Reportable Total Counted 100 Seg Neutrophils % 88.0 H Band Neutrophils % 1.0 L Lymphocytes % (Manual) 8.0 L Monocytes % (Manual) 3.0 Neutrophils # (Manual) 54000 H Nucleated RBCs 3 H RBC Morphology See below Polychromasia 1+ H Anisocytosis 1+ H Microcytosis 2+ H Ovalocytes 1+ H Sodium 131 L Potassium 3.2 L Chloride 99 Carbon Dioxide 24 BUN 18 H Creatinine 0.64 Estimated GFR > 60 BUN/Creatinine Ratio 28.1 H Glucose 135 H Calcium 9.2 PFSH Medical History Mumps Measles Chicken pox Thalassemia Dementia Polyneuropathy following chemotherapy History of breast cancer History of endometrial cancer Acquired hypothyroidism Mixed hyperlipidemia Essential hypertension (~1986) Urinary incontinence without sensory awareness Urge incontinence Pelvic pain in female Lower urinary tract symptoms (LUTS) Postmenopausal atrophic vaginitis Thyroid disease Osteoporosis Hx of migraine headaches Anemia Breast cancer (~2017) Surgical History Anesthesia Status post hysterectomy (08/02/12) Status post parathyroidectomy Status post surgery (06/09/12) Family History Sister Cancer Kidney stones Father Diabetes mellitus Migraines Mother Hypertension Sister Fall History of heart disease Grandfather Stroke Grandmother History of heart disease Grandfather History of heart disease Grandmother History of heart disease Social History marital status: number of children: 3 household members: spouse occupational status: unemployed Smoking Status: Never smoker alcohol intake: current caffeine: Yes Discharge Plan Discharge Plan Patient Disposition: Home Health Service Provider Discharge Comment: You were admitted to the hospital with an infection of the gallbladder and high blood pressure. Blood pressure medications were added, please follow up with Dr. Thomas ideally next week for continued management. It would be helpful to keep a log of your blood pressures. Discharge orders & Medications Prescriptions: New minoxidil 2.5 mg tablet 5 mg PO DAILY 30 Days Qty: 60 0RF chlorthalidone 25 mg Tablet 12.5 mg PO DAILY 30 Days Qty: 15 0RF amlodipine [Norvasc] 5 mg Tablet 5 mg PO DAILY 30 Days Qty: 30 0RF hydromorphone 2 mg Tablet 1 mg PO Q6HR PRN (Reason: Pain, Severe (7-10)) 7 Days Qty: 10 0RF ondansetron HCl 4 mg tablet 4 mg PO Q8H PRN (Reason: nausea and vomiting) 30 Days Qty: 30 0RF Continued spironolactone 50 mg tablet 50 mg PO BID Qty: 180 3RF cetirizine [Zyrtec] 10 mg tablet 10 mg PO DAILY PRN (Reason: Allergy Symptoms) cholecalciferol (vitamin D3) 1 tab PO DAILY labetalol 100 mg tablet 100 mg PO BID Qty: 180 3RF levothyroxine 88 mcg tablet 88 mcg PO DAILY Qty: 90 3RF liothyronine [Cytomel] 5 mcg tablet 5 mcg PO DAILY Qty: 90 3RF Discontinued minoxidil 2.5 mg tablet 2.5 mg PO DAILY Qty: 90 1RF Follow up/Referrals: Dong Thomas MD [Primary Care Provider] - Other Ambulatory Orders: Basic Metabolic Panel (Routine) Timeframe: 2 Days Facility: [facility] - Location: Laboratory Ordered By: Ernesto Macias Diet/Activity/Treatments Diet: Diet as Tolerated and Low-fat Visit Report/Discharge Packet Instructions: Eating a Diet Low in Saturated Fat, Trans Fat, and Cholesterol, Fat-Restricted Diet, DI for Open Cholecystectomy, DI for Prescription Opioid Use Stand Alone Forms: Patient Portal/API, Stroke Signs & Symptoms, Surgery Discharge Discharge Data Primary Care Provider: Dong Thomas V Quality VTE Deep Vein Thrombosis/Pulmonary Embolism Present on Admission: No
--- NOTE | 2023-09-25 13:40 | PM.CALLCOV.1 ---
Call Coverage Note Note Date of Patient Contact: 09/25/23 Time of Patient Contact: 13:40 Narrative of Care Provided: 78-year-old woman postoperative day 1 status post laparoscopic cholecystectomy for acute acalculous cholecystitis. Patient recovering appropriate for postoperative day 1. Diet as tolerated and appropriate for discharge from a surgical perspective once medically clear. -2 week follow up
== END 2023-09-25 14:00 | disposition home health service (06) | DRG 988 ==
LOC: ED 14:22 → AC 14:23 → ICU 14:43
PROVIDERS: Student in an Organized Health Care Education/Training Program; Surgery; Admitting Provider Hospitalist; Emergency Provider Emergency Medicine; PCP Internal Medicine; Referring Provider Emergency Medicine; Visit Provider Hospitalist
PROC: 0FT44ZZ Resection of Gallbladder, Percutaneous Endoscopic Approach (ICD-10-PCS; CPT 47562; principal; 2023-09-24 09:00)
DX: I16.0 Hypertensive urgency (principal); E87.20 Acidosis, unspecified; I24.89 Other forms of acute ischemic heart disease; N39.0 Urinary tract infection, site not specified; K81.0 Acute cholecystitis; B96.20 Unspecified Escherichia coli [E. coli] as the cause of diseases classified elsewhere; F03.90 Unspecified dementia, unspecified severity, without behavioral disturbance, psychotic disturbance, mood disturbance, and anxiety; E03.9 Hypothyroidism, unspecified; D56.9 Thalassemia, unspecified; G62.9 Polyneuropathy, unspecified
CPT/HCPCS: 36415; 47563; 70450; 71045; 71275; 74174; 76705; 78227; 80048; 80053; 80061; 80076; 81001; 82550; 83036; 83605; 83690; 83735; 83880; 84145; 84484; 85007; 85025; 85610; 85730; 87040; 87077; 87086; 87186; 93005; 93306; 96365; 96375; 96376; 97162; 99232; 99284; 99285; A9537; J0136; J0360; J1100; J1644; J2405; J2543; J2704; J2765; J2805; J3010; J3490

== ENCOUNTER → 2023-10-15 14:08 | Outpatient (CLI) | payer MEDICARE, OTHER, SELFPAY ==
[2023-09-21 15:47] VITALS: BMI 21.2
== END ==
PROVIDERS: PCP Internal Medicine; Visit Provider Nurse Practitioner Family
DX: N39.0 Urinary tract infection, site not specified (principal)
CPT/HCPCS: 87077; 87086; 87186

== ENCOUNTER → 2023-11-07 13:20 | Outpatient (CLI) | payer MEDICARE, OTHER, SELFPAY ==
[2023-09-21 15:47] VITALS: BMI 21.2
--- NOTE | 2023-11-07 | DI.US.S_ITS ---
LIMITED ULTRASOUND OF LEFT BREAST AND AXILLA: 11/07/2023 CLINICAL: Palpable left breast lump. Comparison is made to exams dated: 11/07/2023 mammogram, 11/12/2022 ultrasound, 11/12/2022 mammogram, 01/12/2021 ultrasound, 01/12/2021 mammogram, and 07/14/2020 ultrasound - [facility]. CTA chest and abdomen 09/21/2023. Color flow and real-time ultrasound of the left breast axilla were performed. Richardson scale images of the real-time examination were reviewed. There is a 1.9 cm x 1.7 cm x 1.6 cm oval post-surgical scar in the left breast at 9 o'clock middle depth 3 cm from the nipple. This oval post-surgical scar is hypoechoic. This abnormality is increased in size. Color flow imaging demonstrates that there is no vascularity present. No significant abnormalities were seen sonographically in the left axilla. IMPRESSION: PROBABLY BENIGN The 1.9 cm oval post-surgical scar in the left breast is probably benign. A follow-up mammogram and an ultrasound in 6 months is recommended to demonstrate stability. No enlarged left axillary lymph nodes. Exam findings were discussed with the patient. Patient is advised to monitor for significant change. Clinical follow-up as needed. This exam was interpreted at Station ID: [id number]. Electronically Signed By: González Neff M.D. slc/:11/07/2023 14:50:09 letter sent: Followup Recommended Ultrasound BI-RADS: 3 Probably benign
--- NOTE | 2023-11-07 | DI.MG.S_ITS ---
BILATERAL DIGITAL DIAGNOSTIC MAMMOGRAM 3D/2D POST LUMPECTOMY: 11/07/2023 CLINICAL: Personal history breast cancer. Family history of breast cancer. Comparison is made to exams dated: 11/12/2022 mammogram, 01/12/2021 mammogram, 07/14/2020 mammogram, and 01/18/2020 mammogram - . Both breasts are heterogeneously dense, which may obscure small masses (category c / 51-75% glandular tissue). No significant masses, calcifications, or other findings are seen in either breast. Post-operative findings in the left breast. Benign vascular calcifications in the left breast. IMPRESSION: INCOMPLETE: NEEDS ADDITIONAL IMAGING EVALUATION No mammographic evidence of malignancy. A targeted ultrasound is recommended and will immediately follow. This exam was interpreted at Station ID: [id number]. NOTE: For mammograms, a report in lay terms will be sent to the patient. Approximately 15% of breast malignancies will not be visualized mammographically. In the management of a palpable breast mass, a negative mammogram must not discourage biopsy of a clinically suspicious lesion. Electronically Signed By: González Neff M.D. [facility] [place]/:11/07/2023 14:07:09 ACR BI-RADS Category 0: Incomplete [id number]
== END ==
PROVIDERS: PCP Internal Medicine; Referring Provider Internal Medicine Hematology & Oncology; Visit Provider Internal Medicine Hematology & Oncology
DX: R92.2 Inconclusive mammogram (principal); C50.312 Malignant neoplasm of lower-inner quadrant of left female breast; R92.333 Mammographic heterogeneous density, bilateral breasts; L90.5 Scar conditions and fibrosis of skin; Z17.0 Estrogen receptor positive status [ER+]; Z80.3 Family history of malignant neoplasm of breast
CPT/HCPCS: 76642; 77066; G0279

== ENCOUNTER → 2023-12-28 10:20 | Outpatient (CLI) | payer MEDICARE, OTHER, SELFPAY ==
[2023-09-21 15:47] VITALS: BMI 21.2
== END ==
PROVIDERS: PCP Internal Medicine; Visit Provider Specialist
DX: R39.9 Unspecified symptoms and signs involving the genitourinary system (principal)
CPT/HCPCS: 87077; 87086

== ENCOUNTER → 2024-01-25 14:35 | Outpatient (CLI) | payer MEDICARE, OTHER, SELFPAY ==
[2023-09-21 15:47] VITALS: BMI 21.2
[2024-01-25 15:27] LABS: Hemoglobin 10.7 g/dL (12.0-16.0); Mean Corpuscular HGB Conc 32.5 % (30-36); Mean Corpuscular Hemoglobin 20.1 PG (26-34); Mean Corpuscular Volume 61.7 fL (80-100); Platelet Count 215 X10^3/uL (150-400); Red Blood Cell Count 5.35 X10^6/uL (4.0-5.2); Red Cell Distribution Width 15.5 % (11.6-14.8)
[2024-01-25 15:50] LABS: Alanine Aminotransferase 13 IU/L (<35); Albumin 4.5 g/dL (3.5-5.0); Albumin Globulin Ratio 1.8 (1.0-2.8); Alkaline Phosphatase 66 U/L (38-126); Amylase 68 U/L (30-110); Aspartate Aminotransferase 22 IU/L (14-36); Bilirubin Total 0.8 mg/dL (0.2-1.3); Blood Urea Nitrogen 19 mg/dL (7-17); Calcium 9.7 mg/dL (8.4-10.2); Carbon Dioxide 25 mmol/L (22-32); Chloride 106 mmol/L (98-107); Cholesterol 199 mg/dL (140-199); Estimated Glomerular Filt Rate > 60 mL/min (>60); Globulin 2.5 g/dL (1.7-4.1); Glucose 100 mg/dL (80-110); HDL Cholesterol 60 mg/dL (40-60); HEMOLYSIS < 15 (0-50); LDL Cholesterol Calculated 106 mg/dL (<100); Lipase 144 U/L (23-300); Potassium 4.4 mmol/L (3.4-5.1); Sodium 135 mmol/L (137-145); Triglycerides 164 mg/dL (35-150)
[2024-01-25 16:14] LABS: TSH w/ Reflex to FT4 0.03 uIU/mL (0.47-4.68)
[2024-01-25 17:16] LABS: Free T4, Direct Thyroxine 1.26 ng/dL (0.78-2.19)
== END ==
PROVIDERS: PCP Internal Medicine; Referring Provider Internal Medicine; Visit Provider Internal Medicine
DX: K86.89 Other specified diseases of pancreas (principal); E03.9 Hypothyroidism, unspecified; E78.2 Mixed hyperlipidemia
CPT/HCPCS: 36415; 80053; 80061; 82150; 83690; 84439; 84443; 85027

== ENCOUNTER → 2024-02-06 08:51 | Outpatient (CLI) | payer MEDICARE, OTHER, SELFPAY ==
[2023-09-21 15:47] VITALS: BMI 21.2
--- NOTE | 2024-02-06 08:53 | DI.CT.S_ITS ---
PROCEDURE: CT ABDOMEN WWO PELVIS W INDICATIONS: follow up pancreatic mass TECHNIQUE: After the administration of oral contrast, 5 mm thick sections acquired from the diaphragms to the iliac crests. After the administration of intravenous contrast, 5 mm thick sections acquired from the diaphragms to the symphysis. 5 mm thick coronal and sagittal reformats were acquired. For radiation dose reduction, the following was used: automated exposure control, adjustment of mA and/or kV according to patient size. COMPARISON: [facility], CT, CT ANGIO CHEST ABDOMEN PELVIS, 09/21/2023, 12:13. FINDINGS: Image quality: Diagnostic Lower chest: Small bilateral effusions and underlying atelectasis/scarring. There may be also underlying airspace disease. This is only partially visualized. Liver: No suspicious focal lesion Gallbladder and biliary system: Gallbladder is not seen. No pathologic biliary ductal dilation Pancreas: No ductal dilation. Similar 2.6 cm mass at the tail, with a hypervascular appearance. This is in close proximity to the stomach and spleen, but the fat plane appears preserved. Additional 1 cm cystic lesion is seen at the tail (9/38). Spleen: Nonenlarged Adrenals: Mild thickening bilaterally Kidneys: Rotated left kidney. No solid mass. No hydronephrosis. There are small nonobstructing renal calculi bilaterally left upper pole. Renal scarring is present. Vessels and lymph nodes: The main portal vein appears patent. No abdominal aortic aneurysm. Atherosclerotic disease is present. No pathologic lymph nodes by size criteria Bowel and peritoneum: No evidence of small bowel obstruction. No pathologic ascites. Changed colonic diverticula are seen. Body wall: Small fat containing umbilical hernia Pelvis: Bladder is unremarkable. Uterus is not seen Bones: Degenerative changes. L1 height loss is similar to prior IMPRESSION: Confirmation of hypervascular pancreatic tail mass, stable in size compared to August 2023. Imaging appearance is less typical for pancreatic adenocarcinoma. Neuroendocrine tumor is a differential consideration, as is hypervascular metastasis from elsewhere, although size stability suggests a more indolent etiology. Another 1 cm cystic lesion, possibly IPMN, is seen at the pancreatic tail, attention on follow-up. Small bilateral pleural effusions. Other findings above. Dictated by: Feliberto Henderson M.D. on 02/06/2024 at 11:18 Approved by: Feliberto Henderson M.D. on 02/06/2024 at 11:28
== END ==
PROVIDERS: PCP Internal Medicine; Referring Provider Internal Medicine; Visit Provider Internal Medicine
DX: K86.89 Other specified diseases of pancreas (principal); J90 Pleural effusion, not elsewhere classified; N20.0 Calculus of kidney; K42.9 Umbilical hernia without obstruction or gangrene
CPT/HCPCS: 74178; Q9967

== ENCOUNTER → 2024-03-28 12:06 | Outpatient (CLI) | payer MEDICARE, OTHER, SELFPAY ==
[2023-09-21 15:47] VITALS: BMI 21.2
[2024-03-28 16:39] LABS: Hematocrit 29.7 % (36-46); Hemoglobin 9.6 g/dL (12.0-16.0); Mean Corpuscular HGB Conc 32.2 % (30-36); Mean Corpuscular Hemoglobin 19.8 PG (26-34); Mean Corpuscular Volume 61.4 fL (80-100); Platelet Count 194 X10^3/uL (150-400); Red Blood Cell Count 4.84 X10^6/uL (4.0-5.2); Red Cell Distribution Width 17.9 % (11.6-14.8); White Blood Cell Count 5.1 X10^3/uL (4.5-11.0)
[2024-03-28 16:57] LABS: Alanine Aminotransferase 11 IU/L (<35); Albumin 3.9 g/dL (3.5-5.0); Albumin Globulin Ratio 1.4 (1.0-2.8); Alkaline Phosphatase 51 U/L (38-126); Aspartate Aminotransferase 20 IU/L (14-36); Bilirubin Total 0.6 mg/dL (0.2-1.3); Blood Urea Nitrogen 17 mg/dL (7-17); Calcium 9.4 mg/dL (8.4-10.2); Carbon Dioxide 25 mmol/L (22-32); Chloride 105 mmol/L (98-107); Estimated Glomerular Filt Rate > 60 mL/min (>60); Globulin 2.7 g/dL (1.7-4.1); Glucose 77 mg/dL (80-110); HEMOLYSIS < 15 (0-50); Potassium 4.3 mmol/L (3.4-5.1); Sodium 135 mmol/L (137-145); Total Protein 6.6 g/dL (6.3-8.2)
[2024-03-28 17:27] LABS: TSH w/ Reflex to FT4 0.43 uIU/mL (0.47-4.68)
[2024-03-28 17:56] LABS: Free T4, Direct Thyroxine 1.06 ng/dL (0.78-2.19)
== END ==
LOC: LAB 12:07
PROVIDERS: PCP Internal Medicine; Referring Provider Internal Medicine; Visit Provider Internal Medicine
DX: E03.9 Hypothyroidism, unspecified (principal); K86.89 Other specified diseases of pancreas
CPT/HCPCS: 36415; 80053; 84439; 84443; 85027

== ENCOUNTER → 2024-06-01 10:15 | Outpatient (CLI) | payer MEDICARE, OTHER, SELFPAY ==
[2023-09-21 15:47] VITALS: BMI 21.2
--- NOTE | 2024-06-01 10:17 | DI.MG.S_ITS ---
UNILATERAL LEFT DIGITAL DIAGNOSTIC MAMMOGRAM 3D/2D: 06/01/2024 CLINICAL: Patient returns for a 6 month follow up of the left breast. Comparison is made to exams dated: 11/07/2023 ultrasound, 11/07/2023 mammogram, 11/12/2022 ultrasound, and 11/12/2022 mammogram - [facility]. The breasts are heterogeneously dense, which may obscure small masses (category c / 51-75% glandular tissue). No significant masses, calcifications, or other findings are seen in the breast. Stable post-operative findings in the left breast. IMPRESSION: INCOMPLETE: NEED ADDITIONAL IMAGING EVALUATION Stable post-operative findings in the left breast. A targeted ultrasound is recommended and will immediately follow. This exam was interpreted at Station ID: [id number]. NOTE: For mammograms, a report in lay terms will be sent to the patient. Approximately 15% of breast malignancies will not be visualized mammographically. In the management of a palpable breast mass, a negative mammogram must not discourage biopsy of a clinically suspicious lesion. Electronically Signed By: González Neff M.D. [facility] [place]/:06/01/2024 11:03:47 Entry: - 06/04/2024 15:17:33 letter sent: Need Ultrasound ACR BI-RADS Category 0: Incomplete: Need Additional Imaging Evaluation
--- NOTE | 2024-06-01 10:17 | DI.US.S_ITS ---
LIMITED ULTRASOUND OF LEFT BREAST AND AXILLA: 06/01/2024 CLINICAL: 6 month follow-up of seroma. Comparison is made to exams dated: 06/01/2024 mammogram, 11/07/2023 ultrasound, 11/12/2022 ultrasound, 01/12/2021 ultrasound, 11/07/2023 mammogram, and 01/18/2020 ultrasound - [facility]. Color flow and real-time ultrasound of the left breast 9 o'clock, and axilla regions were performed. Richardson scale images of the real-time examination were reviewed. There is a 1.9 cm x 1.8 cm x 1.5 cm oval post-surgical scar in the left breast at 9 o'clock middle depth 3 cm from the nipple. This oval post-surgical scar is hypoechoic. This abnormality is not significantly changed in size or appearance compared to 2020 and correlates as palpated. Color flow imaging demonstrates that there is an adjacent vascularity. No significant abnormalities were seen sonographically in the left axilla. IMPRESSION: BENIGN There is no sonographic evidence of malignancy. Stable 1.9 cm oval post-surgical scar in the left breast is benign. Return to screening mammogram schedule is recommended. Exam findings were conveyed to the patient. Patient is advised to monitor for significant change. Clinical follow-up as needed. This exam was interpreted at Station ID: [id number]. Electronically Signed By: González Neff M.D. [facility]/:06/01/2024 11:48:05 letter sent: Normal Exam ACR BI-RADS Category 2: Benign
== END ==
LOC: MAMMO 10:16
PROVIDERS: PCP Internal Medicine; Referring Provider Internal Medicine; Visit Provider Internal Medicine
DX: R92.2 Inconclusive mammogram (principal); C50.312 Malignant neoplasm of lower-inner quadrant of left female breast; R92.333 Mammographic heterogeneous density, bilateral breasts; L90.5 Scar conditions and fibrosis of skin; Z17.0 Estrogen receptor positive status [ER+]
CPT/HCPCS: 76642; 77065; G0279

== ENCOUNTER → 2024-07-16 10:52 | Outpatient (CLI) | payer MEDICARE, OTHER, SELFPAY ==
[2023-09-21 15:47] VITALS: BMI 21.2
[2024-07-16 12:22] LABS: Add Manual Diff / Slide Review NO; Basophils Absolute Auto 0 /uL (0-100); Basophils Percent Auto 0.7 % (0-2); Eosinophils Absolute Auto 100 /uL (0-450); Eosinophils Percent Auto 1.4 % (2-4); Hematocrit 35.7 % (36-46); Hemoglobin 11.3 g/dL (12.0-16.0); Lymphocytes Absolute Auto 800 /uL (1100-4500); Lymphocytes Percent Auto 14.4 % (25-40); Mean Corpuscular HGB Conc 31.7 % (30-36); Mean Corpuscular Hemoglobin 19.6 PG (26-34); Mean Corpuscular Volume 61.9 fL (80-100); Monocytes Absolute Auto 400 /uL (0-900); Monocytes Percent Auto 6.4 % (3-14); Neutrophils Absolute Auto 4300 /uL (1500-7000); Neutrophils Percent Auto 77.1 % (50-75); Platelet Count 234 X10^3/uL (150-400); Red Blood Cell Count 5.76 X10^6/uL (4.0-5.2); Red Cell Distribution Width 17.1 % (11.6-14.8); White Blood Cell Count 5.6 X10^3/uL (4.5-11.0)
[2024-07-16 12:34] LABS: Reticulocyte Count, Percent 2.2 % (1.1-2.6)
[2024-07-16 12:40] LABS: HEMOLYSIS < 15 (0-50); Iron 100 ug/dL (37-170)
[2024-07-16 12:51] LABS: Percent Iron Saturation 37 % (15-50); Total Iron Binding Capacity 270 ug/dL (265-497); Transferrin 245 mg/dL (206-381)
[2024-07-16 13:10] LABS: Anisocytosis 1+; Microcytosis 1+
[2024-07-16 13:21] LABS: Ferritin 64 ng/mL (11-264)
== END ==
PROVIDERS: PCP Internal Medicine; Referring Provider Internal Medicine; Visit Provider Internal Medicine
DX: D50.9 Iron deficiency anemia, unspecified (principal)
CPT/HCPCS: 36415; 82728; 83540; 83550; 85025; 85045

== ENCOUNTER → 2024-07-23 09:22 | Outpatient (CLI) | payer MEDICARE, OTHER, SELFPAY ==
[2023-09-21 15:47] VITALS: BMI 21.2
--- NOTE | 2024-07-23 09:23 | DI.CT.S_ITS ---
PROCEDURE: CT ABDOMEN PANCREATIC PROTOCOL INDICATIONS: pancreatic mass followup TECHNIQUE: Both before and after the administration of intravenous contrast, 3 mm thick pancreatic-phase images acquired from the diaphragm to the iliac crests. 3 mm thick coronal and sagittal reformats were performed. For radiation dose reduction, the following was used: automated exposure control, adjustment of mA and/or kV according to patient size. COMPARISON: [facility], CT, CT ANGIO CHEST ABDOMEN PELVIS, 09/21/2023, 12:13. [facility], CT, CT ABDOMEN WWO PELVIS W, 02/06/2024, 9:37. FINDINGS: Image quality: Diagnostic. Lower chest: Left lung base nodular opacity or pulmonary nodule measuring 0.5 cm, (13/3). No pleural effusion. ABDOMEN: Pancreas: Lesion at the distal tail the pancreas measuring 3.1 x 2.6 cm, (/38), previously 2.9 x 2.6 cm, and more remotely 2.7 x 2.6 cm on 09/21/2023. The lesion demonstrates rim calcification, peripheral enhancement and central hypoenhancement. (The lesion is most conspicuous on the portal venous phase). No ductal dilation. Cyst in the tail the pancreas measuring 1 cm, (9/36), unchanged. Liver: No solid mass. Gallbladder: Absent. Biliary ducts: No biliary dilation. Adrenal Glands: No nodules. Spleen: Size is within normal limits. Kidneys and Ureters: No hydronephrosis. Small nonobstructing right kidney stones. Suspect left arterial vascular calcifications. Bilateral renal scarring or cortical thinning is similar. No solid mass. No complex renal cystic lesion which requires follow up. Stomach and Bowel: Normal colonic caliber, without significant wall thickening. No obstruction. Peritoneum: No abnormal intraperitoneal fluid. No free air. Ventral Wall: No hernia. Abdominal Nodes: No retroperitoneal or mesenteric adenopathy by size criteria. Vessels: Aorta and inferior vena cava are normal in size. Circumferential calcified atherosclerotic plaque. Bones: No aggressive osseous abnormality. L1 compression fracture is unchanged. IMPRESSION: 1. Lesion at the tail the pancreas measuring 3.3 cm is not significantly changed. 2. No metastatic disease identified. No adenopathy. 3. Cyst in the tail the pancreas measuring 1 cm, unchanged. Possibly an IPMN. Recommend continued imaging surveillance. Dictated by: González Neff M.D. on 07/23/2024 at 16:37 Approved by: González Neff M.D. on 07/23/2024 at 16:51
[2024-07-23 09:56] LABS: Estimated Glomerular Filt Rate > 60 mL/min (>60)
== END ==
PROVIDERS: Radiology Diagnostic Radiology; PCP Internal Medicine; Referring Provider Internal Medicine; Visit Provider Internal Medicine
DX: K86.89 Other specified diseases of pancreas (principal); K86.2 Cyst of pancreas; N20.0 Calculus of kidney; Z90.49 Acquired absence of other specified parts of digestive tract
CPT/HCPCS: 36415; 74170; 82565; Q9967

== ENCOUNTER → 2024-11-16 10:46 | Outpatient (CLI) | payer MEDICARE, OTHER, SELFPAY ==
[2023-09-21 15:47] VITALS: BMI 21.2
--- NOTE | 2024-11-16 10:48 | DI.MG.S_ITS ---
MM screening mammo BI: 11/16/2024. BI-RADS: 2 CLINICAL: 79-year old female for bilateral screening mammogram. No Tyrer-Cuzick risk score calculation due to the patient's personal history of breast cancer. Patient reports a history of left breast carcinoma diagnosed at age 73. Status-post left lumpectomy. No first-degree family history of breast cancer. The patient had a prior left breast biopsy. PRIOR EXAMS 06/01/2024, 11/07/2023, 11/12/2022, 01/12/2021, 07/14/2020, 01/18/2020, 07/13/2019, 06/09/2018, 05/17/2018, 05/03/2018, 03/10/2017, 10/23/2015, 05/21/2015. MAMMOGRAPHY TECHNIQUE: 2D and 3D (tomosynthesis) digital mammographic views obtained, with additional images as needed for full coverage. Current study was also evaluated with a Computer Aided Detection (CAD) system. DENSITY C. The breasts are heterogeneously dense, which may obscure small masses. MAMMOGRAPHY FINDINGS Right: No suspicious mass, asymmetry, microcalcification, or other abnormality seen. No significant change from comparison. Left: Benign-appearing post-surgical changes noted on the left. There are no suspicious masses, calcifications, or other findings in the breast. No significant change from comparison. IMPRESSION: Right * No evidence of malignancy. Left * No evidence of malignancy with benign findings. RECOMMENDATIONS Bilateral * Annual screening mammography. OVERALL ASSESSMENT CATEGORY BI-RADS-2: Benign. [employer] recommends annual screening mammography beginning at age 40 for women with average risk of breast cancer. ELECTRONICALLY SIGNED: Teresa Walls M.D. on 11/16/2024 at 10:55:23 PM PT Interpreting Station ID: [id number]
== END ==
PROVIDERS: PCP Internal Medicine; Referring Provider Internal Medicine; Visit Provider Internal Medicine
DX: Z12.31 Encounter for screening mammogram for malignant neoplasm of breast (principal); Z85.3 Personal history of malignant neoplasm of breast; R92.333 Mammographic heterogeneous density, bilateral breasts
CPT/HCPCS: 77063; 77067

== ENCOUNTER 2025-02-04 11:33 | Emergency (ER) | payer OTHER, SELFPAY ==
[2023-09-21 15:47] VITALS: BMI 21.2
[2025-02-04 11:43] VITALS: BP 216/96; PULSE 75; RESP 16; TEMP 36.8; O2SAT 97; BMI 19.5
[2025-02-04 13:44] LABS: Basophils Absolute Auto 0 /uL (0-100); Basophils Percent Auto 0.4 % (0-2); Eosinophils Absolute Auto 0 /uL (0-450); Eosinophils Percent Auto 0.2 % (2-4); Hematocrit 32.4 % (36-46); Hemoglobin 10.6 g/dL (12.0-16.0); Lymphocytes Absolute Auto 700 /uL (1100-4500); Lymphocytes Percent Auto 11.2 % (25-40); Mean Corpuscular HGB Conc 32.7 % (30-36); Mean Corpuscular Hemoglobin 20.3 PG (26-34); Mean Corpuscular Volume 62.2 fL (80-100); Monocytes Absolute Auto 300 /uL (0-900); Neutrophils Absolute Auto 4900 /uL (1500-7000); Neutrophils Percent Auto 83.2 % (50-75); Platelet Count 191 X10^3/uL (150-400); Red Blood Cell Count 5.22 X10^6/uL (4.0-5.2); Red Cell Distribution Width 16.6 % (11.6-14.8); White Blood Cell Count 5.9 X10^3/uL (4.5-11.0)
[2025-02-04 13:46] LABS: Add Manual Diff / Slide Review SLIDE REVIEW
--- NOTE | 2025-02-04 13:47 | ED.GENADULT ---
HPI - General Adult General Chief complaint: Hypertension Stated complaint: High blood pressure , sent from Dentist Time Seen by Provider: 02/04/25 12:14 Source: patient Mode of arrival: Ambulatory History of Present Illness HPI narrative: 79-year-old female with past medical history hypertension, dementia, hypothyroidism, hyperlipidemia brought in by for asymptomatic hypertension. Patient has chronic hypertension which has been challenging to control. Patient's PCP Dr. Thomas has patient on a multidrug regimen for blood pressure control. Patient was last seen by him on 01/30/25, asked to call his office if her BP was above 140/90. Patient went to the dentist today, who sent her to the ED for evaluation of a high blood pressure reading with systolic in the 200s. In the ED, patient denies any symptoms including chest pain, shortness of breath, fever, chills, headache, vision changes, nausea, vomiting, abdominal pain, dysuria, lightheadedness, dizziness, syncope. Related Data Home Medications ?Medication ?Instructions ?Recorded ?Confirmed anastrozole 1 mg tablet 1 mg PO DAILY 05/11/24 01/30/25 Previous Rx's ?Medication ?Instructions ?Recorded liothyronine 5 mcg tablet (Cytomel) 2.5 mcg (1/2 x 5 mcg) PO DAILY #45 01/24/24 tabs spironolactone 50 mg tablet 50 mg PO BID #180 tabs 07/16/24 labetalol 100 mg tablet 100 mg PO BID #180 tabs 08/27/24 clonidine HCl 0.1 mg 0.1 mg PO BID #180 tabs 01/11/25 tablet,extended release,12 hr levothyroxine 75 mcg capsule 75 mcg PO DAILY #90 caps 01/15/25 minoxidil 10 mg tablet 15 mg (1.5 x 10 mg) PO DAILY #135 01/30/25 tabs sertraline 50 mg tablet 50 mg PO DAILY #90 tabs 01/30/25 Allergies Allergy/AdvReac Type Severity Reaction Status Date / Time RONAN Inhibitors (RONAN Allergy Severe flu like Verified 02/04/25 11:43 INHIBITORS) sx, headaches, sore muscles ARB-Angiotensin Receptor Allergy Severe flu like Verified 02/04/25 11:43 Antagonist (ARB-ANGIOTENSIN symptoms RECEPTOR ANTAGONIST) codeine (CODEINE) Allergy Mild VOMITING Verified 02/04/25 11:43 oxycodone (OXYCODONE) Allergy Mild VOMITING Verified 02/04/25 11:43 candesartan Allergy Verified 02/04/25 11:43 diphenhydramine Allergy Verified 02/04/25 11:43 guanfacine Allergy Verified 02/04/25 11:43 amlodipine AdvReac Mild Dizziness Verified 02/04/25 11:43 atenolol AdvReac Mild Dizziness Verified 02/04/25 11:43 diltiazem AdvReac Mild Dizziness Verified 02/04/25 11:43 fosinopril AdvReac Mild Dizziness Verified 02/04/25 11:43 lisinopril AdvReac Mild Dizziness Verified 02/04/25 11:43 metoprolol AdvReac Mild Dizziness Verified 02/04/25 11:43 nifedipine AdvReac Mild Dizziness Verified 02/04/25 11:43 propranolol AdvReac Mild Dizziness Verified 02/04/25 11:43 valsartan AdvReac Mild Dizziness Verified 02/04/25 11:43 Review of Systems Review of Systems Narrative: High blood pressure Constitutional Constitutional: Denies chills, Denies fatigue, Denies fever(s), Denies frequent falls, Denies headache(s), Denies lethargy and Denies weakness Eyes Eyes: Denies change in vision, Denies eye discharge, Denies irritation and Denies loss of vision ENT Ears, Nose, Mouth, and Throat: Denies change in voice, Denies dizziness, Denies headache(s), Denies neck pain, Denies sore throat and Denies throat swelling Cardiovascular Cardiovascular: Denies chest pain, Denies irregular heart rhythm, Denies lightheadedness, Denies palpitations, Denies dyspnea, Denies dyspnea on exertion and Denies orthopnea Respiratory Respiratory: Denies cough, Denies dyspnea, Denies dyspnea on exertion and Denies wheezing Gastrointestinal Gastrointestinal: Denies abdominal pain, Denies change in bowel habits, Denies diarrhea, Denies nausea and Denies vomiting Musculoskeletal Musculoskeletal: Denies neck pain and Denies numbness Integumentary/Breasts Skin/Breast: Denies pruritus, Denies erythema, Denies rash and Denies wounds Neurologic Neurologic: Denies behavioral changes, Denies confusion, Denies dizziness, Denies frequent falls, Denies headache(s), Denies loss of vision, Denies numbness and Denies weakness Psychiatric Psychiatric: Denies anxiety, Denies behavioral changes, Denies confusion, Denies depression, Denies homicidal ideation and Denies suicidal ideation Endocrine Endocrine: Denies fatigue, Denies flushing and Denies palpitations Hematologic/Lymphatic Hematologic/Lymphatic: Denies easy bruising Allergic/Immunologic Allergic/Immunologic: Denies urticaria, Denies throat swelling and Denies wheezing Patient History Medical History Primary osteoarthritis of hands, bilateral Recurrent UTI Postmenopausal atrophic vaginitis Mumps Measles Chicken pox Thalassemia Dementia Polyneuropathy following chemotherapy History of breast cancer History of endometrial cancer Acquired hypothyroidism Mixed hyperlipidemia Essential hypertension (~1986) Urge incontinence Thyroid disease Osteoporosis Hx of migraine headaches Anemia Surgical History History of laparoscopic cholecystectomy Anesthesia Status post hysterectomy (08/02/12) Status post parathyroidectomy Status post surgery (06/09/12) Family History Sister Cancer Kidney stones Father Diabetes mellitus Migraines Mother Hypertension Sister Fall History of heart disease Grandfather Stroke Grandmother History of heart disease Grandfather History of heart disease Grandmother History of heart disease Social History marital status: number of children: 3 household members: spouse occupational status: unemployed alcohol intake: current caffeine: Yes alcohol intake frequency: holidays/special occasions only Exam Narrative Exam Narrative: Const General:?cooperative, healthy appearing and comfortable [facility] Head:?normal to inspection Ears:?hearing grossly normal bilaterally Nose:?external nose normal Face and sinus:?normal facial exam and sinuses nontender Mouth:?oral mucosae normal Throat:?posterior oropharynx normal Eyes General:?appearance normal, both eyes and all related structures Neck Neck:?normal visual inspection and no lymphadenopathy noted Resp Effort & Inspection:?normal respiratory effort Auscultation:?clear to auscultation bilaterally Cardio Rate:?regular rate Rhythm:?regular rhythm Neuro General:?patient alert, patient awake and patient oriented x3; PERRLA; CN 2-12 intact bilaterally; gait normal Initial Vital Signs Initial Vital Signs: Vital Signs Temperature 98.2 F 02/04/25 11:43 Pulse Rate 75 02/04/25 11:43 Respiratory Rate 16 02/04/25 11:43 Blood Pressure 216/96 H 02/04/25 11:43 Pulse Oximetry 97 02/04/25 11:43 Oxygen Delivery Method Room Air 02/04/25 11:43 Course Orders Ordered: ED Orders 02/04/25 13:30 CBC Auto Diff [Complete Blood Count AUTO DIFF] Stat CMP [Comprehensive Metabolic Panel] Stat Lipase Stat Vital Signs Vital signs: Vital Signs - 8 hr 02/04/25 11:43 02/04/25 14:01 02/04/25 14:25 Temperature 98.2 F Pulse Rate 75 77 76 Respiratory Rate 16 16 18 Blood Pressure 216/96 H 220/90 H 218/80 H Pulse Oximetry 97 97 96 Oxygen Delivery Method Room Air Room Air Room Air Medical Decision Making Lab Data 02/04/25 13:30 02/04/25 13:30 Labs: Lab Results 02/04/25 Range/Units 13:30 WBC 5.9 (4.5-11.0) X10^3/uL RBC 5.22 H (4.0-5.2) X10^6/uL Hgb 10.6 L (12.0-16.0) g/dL Hct 32.4 L (36-46) % MCV 62.2 L (80-100) fL MCH 20.3 L (26-34) PG MCHC 32.7 (30-36) % RDW 16.6 H (11.6-14.8) % Plt Count 191 (150-400) X10^3/uL Neut % (Auto) 83.2 H (50-75) % Lymph % (Auto) 11.2 L (25-40) % Custer % (Auto) 5.0 (3-14) % Eos % (Auto) 0.2 L (2-4) % Baso % (Auto) 0.4 (0-2) % Neut # (Auto) 4900 (3773-5469) /uL Lymph # (Auto) 700 L (3028-3548) /uL Custer # (Auto) 300 (0-900) /uL Eos # (Auto) 0 (0-450) /uL Baso # (Auto) 0 (0-100) /uL RBC Morphology See below Hypochromasia 1+ H Anisocytosis 1+ H Microcytosis 1+ H Sodium 132 L (137-145) mmol/L Potassium 4.4 (3.4-5.1) mmol/L Chloride 101 (98-107) mmol/L Carbon Dioxide 23 (22-32) mmol/L BUN 14 (7-17) mg/dL Creatinine 0.79 (0.52-1.04) mg/dL Estimated GFR > 60 (>60) mL/min BUN/Creatinine Ratio 17.7 (6-22) Glucose 115 H (70-99) mg/dL Calcium 9.7 (8.4-10.2) mg/dL Total Bilirubin 1.1 (0.2-1.3) mg/dL AST 24 (14-36) IU/L ALT 16 (<35) IU/L Alkaline Phosphatase 69 (38-126) U/L Total Protein 7.2 (6.3-8.2) g/dL Albumin 4.6 (3.5-5.0) g/dL Globulin 2.6 (1.7-4.1) g/dL Albumin/Globulin Ratio 1.8 (1.0-2.8) Lipase 110 (23-300) U/L MDM Narrative Medical decision making narrative: 79-year-old female with past medical history hypertension, dementia, hypothyroidism, hyperlipidemia brought in by for asymptomatic hypertension. Physical exam history are reassuring for no symptoms. Patient appears well. Obtain labs to rule out acute renal failure. Kidney function appears normal with GFR greater than 60, creatinine 0.79, BUN 14. Labs unremarkable. Patient advised to continue medications as prescribed by Dr. Thomas. Patient and patient's have already reached out to Dr. Thomas's office for a follow-up. ED return precautions were discussed with patient and patient's . They verbalized understanding. Medical records reviewed: Yes Discharge Plan Departure Patient Disposition: Home Clinical Impression: Asymptomatic hypertension Instructions: DI for High Blood Pressure Activity Restrictions/Additional Instructions: You were evaluated in the emergency department for an elevated blood pressure reading. It appears that your blood pressure has been chronically elevated above 140/90 despite the current medication regimen. Your labs today were normal. Please follow-up with your PCP Dr. Thomas as soon as possible for further evaluation. Return to the ED if you have worsening symptoms, chest pain, shortness of breath. Prescriptions: No Action liothyronine [Cytomel] 5 mcg tablet 2.5 mcg PO DAILY Qty: 45 3RF Rx Instructions: Dose change. Please d/c the 5 mcg. spironolactone 50 mg tablet 50 mg PO BID Qty: 180 3RF labetalol 100 mg tablet 100 mg PO BID Qty: 180 3RF levothyroxine 75 mcg capsule 75 mcg PO DAILY Qty: 90 3RF clonidine HCl 0.1 mg tablet extended release 12 hr 0.1 mg PO BID Qty: 180 3RF sertraline 50 mg tablet 50 mg PO DAILY Qty: 90 3RF minoxidil 10 mg tablet 15 mg PO DAILY Qty: 135 3RF anastrozole 1 mg tablet 1 mg PO DAILY Referrals: Dong Thomas MD [Primary Care Provider, Internal Medicine] Stand Alone Forms: Patient Portal/API
[2025-02-04 13:53] LABS: Alanine Aminotransferase 16 IU/L (<35); Albumin 4.6 g/dL (3.5-5.0); Albumin Globulin Ratio 1.8 (1.0-2.8); Alkaline Phosphatase 69 U/L (38-126); Aspartate Aminotransferase 24 IU/L (14-36); BUN Creatinine Ratio 17.7 (6-22); Bilirubin Total 1.1 mg/dL (0.2-1.3); Blood Urea Nitrogen 14 mg/dL (7-17); Calcium 9.7 mg/dL (8.4-10.2); Carbon Dioxide 23 mmol/L (22-32); Chloride 101 mmol/L (98-107); Estimated Glomerular Filt Rate > 60 mL/min (>60); Globulin 2.6 g/dL (1.7-4.1); Glucose 115 mg/dL (70-99); HEMOLYSIS < 15 (0-50); Lipase 110 U/L (23-300); Potassium 4.4 mmol/L (3.4-5.1); Sodium 132 mmol/L (137-145); Total Protein 7.2 g/dL (6.3-8.2)
[2025-02-04 13:57] LABS: Anisocytosis 1+; Hypochromasia 1+; Microcytosis 1+
[2025-02-04 14:01] VITALS: BP 220/90; PULSE 77; RESP 16; O2SAT 97
[2025-02-04 14:25] VITALS: BP 218/80; PULSE 76; RESP 18; O2SAT 96
== END 2025-02-04 14:26 | disposition home or self-care (01) ==
PROVIDERS: Emergency Provider Student in an Organized Health Care Education/Training Program; PCP Internal Medicine
DX: I10 Essential (primary) hypertension (principal)
CPT/HCPCS: 36415; 80053; 83690; 85025; 99281; 99283

== ENCOUNTER → 2025-08-07 14:02 | Outpatient (CLI) | payer MEDICARE, OTHER, SELFPAY ==
[2023-09-21 15:47] VITALS: BMI 21.2
[2025-08-07 14:32] LABS: Hematocrit 30.3 % (36-46); Hemoglobin 9.9 g/dL (12.0-16.0); Mean Corpuscular HGB Conc 32.6 % (30-36); Mean Corpuscular Hemoglobin 20.0 PG (26-34); Mean Corpuscular Volume 61.4 fL (80-100); Platelet Count 222 X10^3/uL (150-400)
[2025-08-07 14:53] LABS: Alanine Aminotransferase 12 IU/L (<35); Albumin 4.5 g/dL (3.5-5.0); Albumin Globulin Ratio 2.0 (1.0-2.8); Alkaline Phosphatase 53 U/L (38-126); Blood Urea Nitrogen 20 mg/dL (7-17); Calcium 9.7 mg/dL (8.4-10.2); Carbon Dioxide 25 mmol/L (22-32); Chloride 104 mmol/L (98-107); Cholesterol 170 mg/dL (140-199); Estimated Glomerular Filt Rate 59 mL/min (>60); Globulin 2.3 g/dL (1.7-4.1); Glucose 102 mg/dL (70-99); HDL Cholesterol 67 mg/dL (40-60); HEMOLYSIS < 15 (0-50); Potassium 4.6 mmol/L (3.4-5.1); Sodium 137 mmol/L (137-145); Total Protein 6.8 g/dL (6.3-8.2); Triglycerides 130 mg/dL (35-150)
[2025-08-07 15:23] LABS: TSH w/ Reflex to FT4 3.19 uIU/mL (0.47-4.68)
== END ==
PROVIDERS: PCP Internal Medicine; Referring Provider Internal Medicine; Visit Provider Internal Medicine
DX: E03.9 Hypothyroidism, unspecified (principal); E78.2 Mixed hyperlipidemia; I10 Essential (primary) hypertension
CPT/HCPCS: 36415; 80053; 80061; 84443; 85027